=== PATIENT | male | born 1945 | race Caucasian/White ===

== ENCOUNTER 2016-09-15 15:39 | Inpatient (IN) | payer MEDICARE ==
[2016-09-15 16:13] LABS: Hematocrit 43 % (42-52); Hemoglobin 14.7 g/dl (14.0-18.0); Mean Corpuscular HGB Conc 34 g/dl (31-36); Mean Corpuscular Hemoglobin 31 pg (27-31); Mean Corpuscular Volume 89 fL (80-94); Mean Platelet Volume 9 um3 (7.4-10.4); Red Blood Count 4.82 10^6/ul (4.0-5.4); Red Cell Distribution Width 14 % (10.5-15); White Blood Count 8.9 10^3/ul (3.5-10.8)
--- NOTE | 2016-09-15 16:32 | RAD ---
INDICATION: Shortness of breath. COMPARISON: Comparison is made with prior chest x-ray study from [facility] 2014. TECHNIQUE: A portable view of the chest was obtained. FINDINGS: There is a transvenous cardiac pacemaker defibrillator present. The heart is within normal limits in size. The lungs are clear. No pleural effusion is seen. IMPRESSION: NO EVIDENCE FOR ACUTE DISEASE.
[2016-09-15 16:34] LABS: Albumin 4.4 g/dL (3.2-5.2); BUN/Creatinine Ratio 16.4 (8-20); Calcium 9.5 mg/dL (8.6-10.3); EGFR Non-African American 55.2 (>60); Globulin 3.1 g/dL (2-4); Magnesium 1.9 mg/dL (1.9-2.7); Potassium 3.5 mmol/L (3.5-5.0); Total Bilirubin 0.4 mg/dL (0.2-1.0); Total Protein 7.5 g/dL (6.4-8.9); Troponin I 0.04 ng/mL (<0.04)
--- NOTE | 2016-09-15 17:30 | ED ---
I, DoctorRoya, scribed for Eda Grimm MD on 09/15/16 at 1625 . Shortness of Breath - HPI Summary HPI Summary: 71 year old male arrived to [facility] c/o SOB and cough for the past two weeks. Pt indicates that his symptoms were exacerbated today around 14:30, when he experienced an episode of syncope and firing of his defibrillator. Pt denies that he hit his head, and reports that he was sitting on a soft chair. Pt reports that he has been gaining weight recently; he denies any edema or calf pain. He has PMHx of DE/CAD, blood clots, and a defibrillator. Dr. 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 - History of Current Complaint Chief Complaint: EDSyncope Time Seen by Provider: 09/15/16 16:01 Hx Obtained From: Patient Onset/Duration: Gradual Onset Current Severity: Moderate Aggrevating Factors: Deep Breaths Associated Signs & Symptoms: Cough (Nonproductive) - Allergy/Home Medications Allergies/Adverse Reactions: Allergies Allergy/AdvReac Type Severity Reaction Status Date / Time Lisinopril Allergy Rash Verified 09/15/16 15:46 Losartan Allergy Rash Verified 09/15/16 15:46 Niacin [From Niaspan] Allergy Flushing Verified 09/15/16 15:46 Home Medications: Home Medications Aspirin EC Low Dose* [Ecotrin EC Low Dose 81 MG*] 81 mg PO DAILY 09/15/16 [ History Confirmed 09/15/16] Clotrimazole/Betamethasone* [Lotrisone Cream*] 1 applic TOPICAL BID 09/15/16 [ History Confirmed 09/15/16] Fenofibrate(NF) [Tricor(NF)] 145 mg PO DAILY 09/15/16 [History Confirmed ] Furosemide TAB* [Lasix TAB*] 20 mg PO DAILY 09/15/16 [History Confirmed 09/15/16 ] Potassium Chloride Microencaps [Klor-Con M20] 20 meq PO DAILY 09/15/16 [History Confirmed 09/15/16] Simvastatin (NF) [Zocor (NF)] 60 mg PO DAILY 09/15/16 [History Confirmed ] Sotalol TAB* [Betapace 80 MG TAB*] 40 mg PO BID 09/15/16 [History Confirmed 03/24] Warfarin TAB(*) [Coumadin TAB(*)] 2.5 mg PO DAILY 09/15/16 [History Confirmed ] PMH/Surg Hx/FS Hx/Imm Hx Endocrine/Hematology History: Denies: Hx Diabetes Cardiovascular History: Reports: Hx Auto Implanted Cardiovert Defib, Hx Cardiac Arrest, Hx Congestive Heart Failure, Hx Coronary Artery Disease, Hx Deep Vein Thrombosis, Hx Hypercholesterolemia, Hx Hypertension Respiratory History: Reports: Hx Pneumonia History: Reports: Other Problems/Disorders - bilateral renal emboli Musculoskeletal History: Reports: Hx Arthritis, Hx Back Problems Sensory History: Reports: Hx Contacts or Glasses Opthamlomology History: Reports: Hx Contacts or Glasses - Surgical History Surgery Procedure, Year, and Place: Stents X4; rhinoplasty defibulator-2013 Hx Anesthesia Reactions: No Infectious Disease History: No Infectious Disease History: Denies: Hx of Known/Suspected MRSA, Traveled Outside the [place] in Last 30 Days - Family History Known Family History: Positive: Cardiac Disease, Diabetes - Social History Lives: Alone Alcohol Use: None Substance Use Type: Reports: None Smoking Status (MU): Former Smoker Review of Systems Negative: Fever Positive: Shortness Of Breath, Cough Positive: Other - no leg pain/edema. Negative: Edema Positive: Syncope All Other Systems Reviewed And Are Negative: Yes Physical Exam Triage Information Reviewed: Yes Vital Signs On Initial Exam: Initial Vitals Temp Pulse Resp BP Pulse Ox 98.5 F 86 16 137/86 98 09/15/16 15:44 09/15/16 15:44 09/15/16 15:44 09/15/16 15:44 09/15/16 15:44 Vital Signs Reviewed: Yes Appearance: Positive: Well-Appearing, No Pain Distress Skin: Positive: Warm, Skin Color Reflects Adequate Perfusion, Dry Eyes: Positive: EOMI, SHEFALI ENT: Positive: Pharynx normal, TMs normal Neck: Positive: Supple, Nontender Respiratory/Lung Sounds: Positive: Breath Sounds Present, Other - slight crackling. Negative: Rales, Rhonchi, Wheezes Cardiovascular: Positive: RRR. Negative: Murmur, Rub Abdomen Description: Positive: Nontender, Soft Bowel Sounds: Positive: Present Musculoskeletal: Positive: Strength/ROM Intact, Edema Right - 1+ edema in the right calf. Negative: Edema Left Neurological: Positive: Sensory/Motor Intact, Alert, Oriented to Person Place, Time, CN Intact II-III Psychiatric: Positive: Affect/Mood Appropriate - Hilaria Coma Scale Coma Scale Total: 15 Diagnostics - Vital Signs Vital Signs Temp Pulse Resp BP Pulse Ox 09/15/16 16:00 86 17 134/74 96 09/15/16 15:55 87 10 96 09/15/16 15:53 140/84 09/15/16 15:46 98.5 F 86 18 137/86 98 09/15/16 15:44 98.5 F 86 16 137/86 98 - Laboratory Lab Results: Lab Results 09/15/16 09/15/16 09/15/16 Range/Units 16:05 16:05 16:05 WBC 8.9 (3.5-10.8) 10^3/ul RBC 4.82 (4.0-5.4) 10^6/ul Hgb 14.7 (14.0-18.0) g/dl Hct 43 (42-52) % MCV 89 (80-94) fL MCH 31 (27-31) pg MCHC 34 (31-36) g/dl RDW 14 (10.5-15) % Plt Count 220 (150-450) 10^3/ul MPV 9 (7.4-10.4) um3 Neut % (Auto) 43.1 (38-83) % Lymph % (Auto) 32.9 (25-47) % [place] % (Auto) 10.1 H (1-9) % Eos % (Auto) 9.9 H (0-6) % Baso % (Auto) 4.0 H (0-2) % Absolute Neuts (auto) 3.8 (1.5-7.7) 10^3/ul Absolute Lymphs (auto) 2.9 (1.0-4.8) 10^3/ul Absolute Monos (auto) 0.9 H (0-0.8) 10^3/ul Absolute Eos (auto) 0.9 H (0-0.6) 10^3/ul Absolute Basos (auto) 0.4 H (0-0.2) 10^3/ul Absolute Nucleated RBC 0.02 10^3/ul Nucleated RBC % 0.2 Sodium 136 (133-145) mmol/L Potassium 3.5 (3.5-5.0) mmol/L Chloride 103 (101-111) mmol/L Carbon Dioxide 23 (22-32) mmol/L Anion Gap 10 (2-11) mmol/L BUN 21 (6-24) mg/dL Creatinine 1.28 H (0.67-1.17) mg/dL Est GFR ( Amer) 71.0 (>60) Est GFR (Non-Af Amer) 55.2 (>60) BUN/Creatinine Ratio 16.4 (8-20) Glucose 125 H (70-100) mg/dL Lactic Acid 1.5 (0.5-2.0) mmol/L Calcium 9.5 (8.6-10.3) mg/dL Magnesium 1.9 (1.9-2.7) mg/dL Total Bilirubin 0.40 (0.2-1.0) mg/dL AST 51 H (13-39) U/L ALT 60 H (7-52) U/L Alkaline Phosphatase 23 L (34-104) U/L Troponin I 0.04 H* (<0.04) ng/mL B-Natriuretic Peptide ( - 100) pg/mL Total Protein 7.5 (6.4-8.9) g/dL Albumin 4.4 (3.2-5.2) g/dL Globulin 3.1 (2-4) g/dL Albumin/Globulin Ratio 1.4 (1-3) 04//17 Range/Units 16:05 WBC (3.5-10.8) 10^3/ul RBC (4.0-5.4) 10^6/ul Hgb (14.0-18.0) g/dl Hct (42-52) % MCV (80-94) fL MCH (27-31) pg MCHC (31-36) g/dl RDW (10.5-15) % Plt Count (150-450) 10^3/ul MPV (7.4-10.4) um3 Neut % (Auto) (38-83) % Lymph % (Auto) (25-47) % [place] % (Auto) (1-9) % Eos % (Auto) (0-6) % Baso % (Auto) (0-2) % Absolute Neuts (auto) (1.5-7.7) 10^3/ul Absolute Lymphs (auto) (1.0-4.8) 10^3/ul Absolute Monos (auto) (0-0.8) 10^3/ul Absolute Eos (auto) (0-0.6) 10^3/ul Absolute Basos (auto) (0-0.2) 10^3/ul Absolute Nucleated RBC 10^3/ul Nucleated RBC % Sodium (133-145) mmol/L Potassium (3.5-5.0) mmol/L Chloride (101-111) mmol/L Carbon Dioxide (22-32) mmol/L Anion Gap (2-11) mmol/L BUN (6-24) mg/dL Creatinine (0.67-1.17) mg/dL Est GFR ( Amer) (>60) Est GFR (Non-Af Amer) (>60) BUN/Creatinine Ratio (8-20) Glucose (70-100) mg/dL Lactic Acid (0.5-2.0) mmol/L Calcium (8.6-10.3) mg/dL Magnesium (1.9-2.7) mg/dL Total Bilirubin (0.2-1.0) mg/dL AST (13-39) U/L ALT (7-52) U/L Alkaline Phosphatase (34-104) U/L Troponin I (<0.04) ng/mL B-Natriuretic Peptide 174 H ( - 100) pg/mL Total Protein (6.4-8.9) g/dL Albumin (3.2-5.2) g/dL Globulin (2-4) g/dL Albumin/Globulin Ratio (1-3) Result Diagrams: 09/15/16 16:05 09/15/16 16:05 Lab Statement: Any lab studies that have been ordered have been reviewed, and results considered in the medical decision making process. - Radiology CXR Radiology Interpretation Completed By: Radiologist - IMPRESSION: NO EVIDENCE FOR ACUTE DISEASE. - EKG 16:21 Cardiac Rate: NL - 83 bpm Ectopy: None EKG Interpretation: LBBB EKG Comparison: No Significant Change - from EKG taken on 06/10/2014 Course/Dx - Course Assessment/Plan: 71 yo male who lifted a 70 lb grill and became syncopal and then felt defibrillator go off. Pt remains slightly sob which he has been experiencing for the last few weeks. Defibrillator was interrogated and it does show that pt was in vtach. Pt accepted for admission by [facility] - Diagnoses Provider Diagnoses: Syncope, Ventricular tachycardia - Physician Notifications Discussed Care of Patient With: 16:43 - Discussed care of pt with [employer] Discharge - Discharge Plan Condition: Stable Disposition: ADMITTED TO [facility] The documentation as recorded by the Doctor smith Tahera accurately reflects the service I personally performed and the decisions made by me, Eda Grimm MD.
[2016-09-15] MEDS ORDERED: NS 0.9% 1000 ML* 1,000 ML IV SCH (18:30)
[2016-09-15] MEDS: Warfarin TAB(*) 2.5 MG PO SCH (19:49)
--- NOTE | 2016-09-15 20:01 | RAD ---
INDICATION: Right flank abdominal pain. COMPARISON: Comparison is made with a prior CT of the abdomen and pelvis from February 27, 2014. TECHNIQUE: Multiple real-time images of the right kidney were obtained. FINDINGS: The right kidney is normal in size shape and echogenicity. The kidney measured 11.9 x 5.0 x 5.2 cm. There appears to be a prominent column of Jose Francisco present. No significant focal abnormality or hydronephrosis is seen. IMPRESSION: NO EVIDENCE FOR HYDRONEPHROSIS.
[2016-09-15] MEDS ORDERED: Heparin VIAL(*) 5000 UNITS/ML VIAL (FIVE THOUSAND) SUBCUT SCH (22:00)
[2016-09-15] MEDS: Sotalol TAB* 80 MG PO SCH (22:05)
[2016-09-15 22:30] LABS: Urine Bilirubin Negative (Negative); Urine Glucose Negative (Negative); Urine Nitrite Negative (Negative)
[2016-09-16 04:47] LABS: Hematocrit 41 % (42-52); Hemoglobin 13.9 g/dl (14.0-18.0); Mean Corpuscular HGB Conc 34 g/dl (31-36); Mean Corpuscular Hemoglobin 30 pg (27-31); Mean Corpuscular Volume 90 fL (80-94); Mean Platelet Volume 9 um3 (7.4-10.4); Red Blood Count 4.62 10^6/ul (4.0-5.4); Red Cell Distribution Width 14 % (10.5-15); White Blood Count 7.3 10^3/ul (3.5-10.8)
[2016-09-16 04:48] LABS: Add Diff/Slide Review? Slide Review Added
[2016-09-16 05:03] LABS: Albumin 3.9 g/dL (3.2-5.2); BUN/Creatinine Ratio 19.4 (8-20); Calcium 9.1 mg/dL (8.6-10.3); EGFR African American 102.7 (>60); EGFR Non-African American 79.9 (>60); Globulin 2.9 g/dL (2-4); Potassium 3.8 mmol/L (3.5-5.0); Total Bilirubin 0.5 mg/dL (0.2-1.0); Total Protein 6.8 g/dL (6.4-8.9)
--- NOTE | 2016-09-16 05:48 | HP ---
HISTORY AND PHYSICAL: DATE OF ADMISSION: 09/15/16 PROVIDER: Michelle Cazares NP ATTENDING PHYSICIAN: Aidan De Jesus MD *(reported dictated by Michelle Cazares NP) PRIMARY CARE PROVIDER: Jesus Manuel Ga MD PHOTO STUDIO ASSISTANT: Curry Yun MD CHIEF COMPLAINT: Syncope and firing of defibrillator. HISTORY OF PRESENT ILLNESS: Mr. 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 Mr. Davis reports that over the past 2 to 3 weeks, he has had worsening shortness of breath and cough. The patient reports that he has had nasal congestion and rhinorrhea. He reports this morning he was at his sister's, where he felt quite short of breath; however, he was able to go about his day and he bought a barbecue grill, got at home, and lifted it off the back of his truck. He reports that the grill was approximately 70 pounds. He reports that he was able to carry this to his back deck, walked around the yard with his dog, and then when he came inside, he was standing up when all of a sudden he felt very short of breath and his AICD fired and at that time, he reports he lost his vision, lost his sight and hearing, and lost consciousness and fell backwards into the chair. He denies any injuries to himself or hitting his head as he reports he fell onto the chair. When he woke up, he was experiencing left upper chest wall pain and extreme shortness of breath and felt very panicked. He was eventually able to call 911 within a minute or two. When he arrived to the emergency department, he reports that he continued to have mild shortness of breath, but otherwise fell back to his baseline. The patient denies any recent fevers or chills. Reports nonproductive cough. Reports good appetite. Possible weight gain, but denies any lower extremity edema or orthopnea. Denies nausea, vomiting, diarrhea, or constipation. The patient reports that he gets his AICD interrogated every 3 months. He believes he saw Dr. Yun last year and believes his last echo was 3 to 6 months ago. The patient also reports right back flank pain for the past 3 or 4 weeks. He believes this to be musculoskeletal, but he is concerned due to his history of right renal emboli and renal infarction. He denies any urinary symptoms such as dysuria, increased frequency, increased urgency, or retention. PAST MEDICAL HISTORY: 1. History of left atrial thrombus with resultant right renal emboli and renal infarction. 2. Coronary artery disease, status post stent to the LAD in 2000. 3. History of ventricular tachycardia arrest, status post AICD placement and initially placed in 2001 with replacement in 2013. 4. Severe ischemic cardiomyopathy with the last EF that we have documented is 20% to 25%, 03/17/13. 5. Hypertension. 6. Hyperlipidemia. 7. Atrial fibrillation, on Coumadin. PAST SURGICAL HISTORY: 1. ICD placement. 2. Back surgery. HOME MEDICATIONS: 1. Coumadin 2.5 mg p.o. daily. 2. Sotalol 40 mg p.o. b.i.d. 3. Simvastatin 60 mg p.o. daily. 4. Potassium chloride 20 mEq p.o. daily. 5. Lasix 20 mg p.o. daily. 6. Fenofibrate 145 mg p.o. daily. 7. Lotrisone cream 1 application topical b.i.d. 8. Aspirin EC low dose 81 mg p.o. daily. ALLERGIES: LISINOPRIL, LOSARTAN, and NIACIN. FAMILY HISTORY: The patient's father at age 72 of coronary artery disease. His mother at age 72 of lung cancer. The patient's sister has a history of hypertension and stroke. The patient's brother from stomach cancer. SOCIAL HISTORY: The patient is a former smoker, quitting greater than 20 years ago. Denies alcohol use. He worked at [employer] and is retired. He is . He has 2 daughters who are both healthy. Surrogate decision maker is his sister, Lulu Reza. REVIEW OF SYSTEMS: A 14-point review of systems was performed. All the pertinent positives and negatives are mentioned in the history of present illness. All the remaining systems are negative. PHYSICAL EXAMINATION GENERAL APPEARANCE: A 71-year-old male sitting in bed, alert and oriented x3, in no acute distress. VITAL SIGNS: Temperature 98.3, heart rate 79, respirations 18, O2 sat 99% on 2 L nasal cannula, and blood pressure 121/85. HEENT: Head is normocephalic, atraumatic. Pupils are equal and reactive to light. Oropharynx is clear. Good dentition. Moist mucous membranes. NECK: Supple. No cervical or supraclavicular lymphadenopathy. RESPIRATORY: Lungs are clear to auscultation bilaterally. Good aeration throughout. CARDIAC: S1, S2. Regular rate and rhythm. No murmurs, rubs, or gallops appreciated. No lower extremity edema noted. ABDOMEN: Obese, soft, nondistended, and nontender. Normal bowel sounds. MUSCULOSKELETAL: No clubbing or cyanosis is noted. Full range of motion in all extremities. Strength is 5/5 throughout. NEUROLOGIC: Cranial nerves II through XII are intact. Sensation to lower extremities is intact to light touch. PSYCH: The patient is alert and oriented x3. Appropriate to situation. SKIN: Warm, pink, and dry. No rashes or lesions were noted. DIAGNOSTIC STUDIES/LAB DATA: WBC is 8.9, RBC 4.82, HGB 14.7, HCT 43, MCV 89, MCH 31, MCHC 34, RDW 14, and platelet count 220. INR 2.82. Sodium 136, potassium 3.5, chloride 103, carbon dioxide 23, anion gap 10, BUN 21 , creatinine 1.28, glucose 125, lactic acid 1.5, calcium 9.5, and magnesium 1.9. Total bilirubin 0.40, AST 51, ALT 60, and alkaline phosphatase 23. Troponin 0.04. BNP 174. Total protein 7.5. Albumin 4.4. Chest x-ray, impression: No evidence for acute disease. EKG: Sinus rhythm with a rate of 83 with a right bundle-branch block. In comparison to prior EKG, no acute ischemic changes noted. ASSESSMENT AND PLAN: Mr. Davis is a 71-year-old male with a past medical history of coronary artery disease, status post stent placement; history of ventricular tachycardia arrest, status post AICD placement; severe ischemic cardiomyopathy with an EF of 20%; atrial fibrillation, on Coumadin; and history of left atrial thrombus resulting in right renal emboli and renal infarction who presents to the hospital on 09/15/16 with complaint of syncope and AICD firing. 1. Syncope secondary to ventricular tachycardia with AICD firing: The patient' s defibrillator was interrogated and does show the patient was in ventricular tachycardia. However, the patient will be admitted to telemetry with trending of troponins. His first initial troponin was 0.04. The patient denies any further chest pain, but does report some mild shortness of breath, which has been his baseline the last 2 to 3 weeks. Continue daily aspirin. We will discuss with Dr. Yun tomorrow. Obtain transthoracic echocardiogram. 2. Shortness of breath: Unclear etiology behind the patient's shortness of breath for the last 2 to 3 weeks. It is possible that the patient has had a worsening of his cardiomyopathy. As stated above, we will obtain echo. It is possible he has a little reactive airway disease or mild congestive heart failure. He is stable on 2 L at this time. We will continue to monitor. 3. Acute kidney injury: Gentle IV fluids overnight. I suspect this is secondary to poor perfusion. Check renal function in the morning. 4. Transaminitis: Mild, suspect hypoperfusion. Recheck in a.m. 5. Atrial fibrillation: The patient is currently in sinus rhythm. Continue sotalol and Coumadin. The patient's INR is therapeutic. 6. Coronary artery disease: Continue aspirin and beta william. 7. Hyperlipidemia: Continue statin. 8. DVT prophylaxis: INR is therapeutic, on Coumadin. 9. Code status: The patient reports that he is a do not resuscitate. His MOLST has been updated. TIME SPENT: Approximately 60 minutes was spent on this admission with greater than 30 minutes at the bedside. This case was discussed with attending physician, Dr. De Jesus, who agrees with the plan of care. MICHELLE CAZARES NP CC: Dr. Ga; Dr. Yun* [id number]/[facility] #: [id number] [facility]ITAL[facility]
[2016-09-16] MEDS: Aspirin EC Low Dose* 81 MG TAB.EC PO SCH (08:35)
[2016-09-16] MEDS: Atorvastatin* 10 MG TAB PO SCH (08:35)
[2016-09-16] MEDS: Sotalol TAB* 80 MG PO SCH ×2 (08:35→20:31)
[2016-09-16] MEDS ORDERED: Perflutren Lipid Microsphere* 1.1 MG/1.5 ML VIAL IV ONE (10:00)
--- NOTE | 2016-09-16 15:09 | PN ---
Subjective Date of Service: 09/16/16 Interval History: pt reports he feels "fine", no further syncopal episodes or CP. Denies SOB. Objective Active Medications: Aspirin (Aspirin Ec Low Dose*) 81 mg PO DAILY [facility] Last Admin: 09/16/16 08:35 Dose: 81 mg Atorvastatin Calcium (Lipitor*) 30 mg PO DAILY [facility] Last Admin: 09/16/16 08:35 Dose: 30 mg Pharmacy Profile Note (Coumadin Daily Reminder*) 1 note FOLLOW UP 1700 [facility] Sotalol HCl (Betapace Tab*) 40 mg PO BID [facility] Last Admin: 09/16/16 08:35 Dose: 40 mg Warfarin Sodium (Coumadin Tab(*)) 2.5 mg PO 1700 [facility] PRN Reason: Protocol Last Admin: 09/15/16 19:49 Dose: 2.5 mg Vital Signs 09/16/16 11:19 Temperature 97.4 F Pulse Rate 56 Respiratory 16 Rate Blood Pressure 104/66 (mmHg) O2 Sat by Pulse 95 Oximetry Oxygen Devices in Use Now: None Appearance: obese 71 yo male sitting up in bed in NAD. A+O x3 Eyes: No Scleral Icterus, PERRLA Ears/Nose/Mouth/Throat: NL Teeth, Lips, Gums, Mucous Membranes Moist Neck: NL Appearance and Movements; NL JVP Respiratory: Symmetrical Chest Expansion and Respiratory Effort, Clear to Auscultation Cardiovascular: NL Sounds; No Murmurs; No JVD, RRR, No Edema Abdominal: NL Sounds; No Tenderness; No Distention, - - obese Extremities: No Edema, No Clubbing, Cyanosis Skin: No Rash or Ulcers, No Nodules or Sclerosis Neurological: Alert and Oriented x 3, NL Sensation, NL Gait, NL Muscle Strength and Tone Lines/Tubes/Other Access: Clean, Dry and Intact Peripheral IV Nutrition: Taking PO's Result Diagrams: 09/16/16 04:28 09/16/16 04:28 Additional Lab and Data: Lab Results 09/15/16 09/15/16 09/15/16 Range/Units 16:05 16:05 16:05 WBC 8.9 (3.5-10.8) 10^3/ul RBC 4.82 (4.0-5.4) 10^6/ul Hgb 14.7 (14.0-18.0) g/dl Hct 43 (42-52) % MCV 89 (80-94) fL MCH 31 (27-31) pg MCHC 34 (31-36) g/dl RDW 14 (10.5-15) % Plt Count 220 (150-450) 10^3/ul MPV 9 (7.4-10.4) um3 Neut % (Auto) 43.1 (38-83) % Lymph % (Auto) 32.9 (25-47) % [place] % (Auto) 10.1 H (1-9) % Eos % (Auto) 9.9 H (0-6) % Baso % (Auto) 4.0 H (0-2) % Absolute Neuts (auto) 3.8 (1.5-7.7) 10^3/ul Absolute Lymphs (auto) 2.9 (1.0-4.8) 10^3/ul Absolute Monos (auto) 0.9 H (0-0.8) 10^3/ul Absolute Eos (auto) 0.9 H (0-0.6) 10^3/ul Absolute Basos (auto) 0.4 H (0-0.2) 10^3/ul Absolute Nucleated RBC 0.02 10^3/ul Nucleated RBC % 0.2 Sodium 136 (133-145) mmol/L Potassium 3.5 (3.5-5.0) mmol/L Chloride 103 (101-111) mmol/L Carbon Dioxide 23 (22-32) mmol/L Anion Gap 10 (2-11) mmol/L BUN 21 (6-24) mg/dL Creatinine 1.28 H (0.67-1.17) mg/dL Est GFR ( Amer) 71.0 (>60) Est GFR (Non-Af Amer) 55.2 (>60) BUN/Creatinine Ratio 16.4 (8-20) Glucose 125 H (70-100) mg/dL Lactic Acid 1.5 (0.5-2.0) mmol/L Calcium 9.5 (8.6-10.3) mg/dL Magnesium 1.9 (1.9-2.7) mg/dL Total Bilirubin 0.40 (0.2-1.0) mg/dL AST 51 H (13-39) U/L ALT 60 H (7-52) U/L Alkaline Phosphatase 23 L (34-104) U/L Troponin I 0.04 H* (<0.04) ng/mL B-Natriuretic Peptide ( - 100) pg/mL Total Protein 7.5 (6.4-8.9) g/dL Albumin 4.4 (3.2-5.2) g/dL Globulin 3.1 (2-4) g/dL Albumin/Globulin Ratio 1.4 (1-3) /03/24 Range/Units 16:05 WBC (3.5-10.8) 10^3/ul RBC (4.0-5.4) 10^6/ul Hgb (14.0-18.0) g/dl Hct (42-52) % MCV (80-94) fL MCH (27-31) pg MCHC (31-36) g/dl RDW (10.5-15) % Plt Count (150-450) 10^3/ul MPV (7.4-10.4) um3 Neut % (Auto) (38-83) % Lymph % (Auto) (25-47) % [place] % (Auto) (1-9) % Eos % (Auto) (0-6) % Baso % (Auto) (0-2) % Absolute Neuts (auto) (1.5-7.7) 10^3/ul Absolute Lymphs (auto) (1.0-4.8) 10^3/ul Absolute Monos (auto) (0-0.8) 10^3/ul Absolute Eos (auto) (0-0.6) 10^3/ul Absolute Basos (auto) (0-0.2) 10^3/ul Absolute Nucleated RBC 10^3/ul Nucleated RBC % Sodium (133-145) mmol/L Potassium (3.5-5.0) mmol/L Chloride (101-111) mmol/L Carbon Dioxide (22-32) mmol/L Anion Gap (2-11) mmol/L BUN (6-24) mg/dL Creatinine (0.67-1.17) mg/dL Est GFR ( Amer) (>60) Est GFR (Non-Af Amer) (>60) BUN/Creatinine Ratio (8-20) Glucose (70-100) mg/dL Lactic Acid (0.5-2.0) mmol/L Calcium (8.6-10.3) mg/dL Magnesium (1.9-2.7) mg/dL Total Bilirubin (0.2-1.0) mg/dL AST (13-39) U/L ALT (7-52) U/L Alkaline Phosphatase (34-104) U/L Troponin I (<0.04) ng/mL B-Natriuretic Peptide 174 H ( - 100) pg/mL Total Protein (6.4-8.9) g/dL Albumin (3.2-5.2) g/dL Globulin (2-4) g/dL Albumin/Globulin Ratio (1-3) Assess/Plan/Problems-Billing Assessment: 71 yo male with a PMH of severe cardiomyopathy with EF 20%, hx of VT arrest s/pp AICD placement, CAD s/p stent placement, afib on coumadin, hx of left atrial thrombus and renal infacrtion who presented to the ED 09/15 with c/o syncope and AICD firing - Patient Problems (1) Syncope Comment: - no further episodes. AICD interrogation showed VT. Troponins indeterminate, suspect demand ischemia. Primary [employer] Dr. Yun recommended nuclear stress text in am. (2) Cardiomyopathy, ischemic Comment: - TTE showing EF <20%, do not have most recent echo on file. Last know EF 20-25 % 2012. Will ask for cardiology records to compare. (3) Afib Comment: - In SR, continue sotalol, coumadin (4) HTN (hypertension) Comment: - controlled. Continue sotalol (5) DVT prophylaxis Comment: coumadin (6) DNR (do not resuscitate) Current Visit: Yes Status: Acute Status and Disposition: inpatient with syncope secondary to VT with AICD firing. Plan for Cardiac nuc stress test in am. Possible DC home tomorrow.
--- NOTE | 2016-09-16 15:12 | ECHO ---
Patient: SARMAD ARCE [facility] Rec#: [id number] : 1945 Date: 09/16/2016 Age: 71y Height: 167.6 cm / 66.0 in Weight: 86.2 kg / 190.0 lbs Sex: M BSA: 2 Room#: 432 Admit Date#: 09/15/2016 Type: Inpatient Referring: Michelle Penny Reading: Curry Yun MD Accredited Legal Secretary: Consuelo Prescott RN RDCS CC: Jesus Manuel Ga MD Transthoracic Echocardiogram Indication: Syncope BP: 112/74 HR: 59 Rhythm: Bradycardia Findings History: CAD, PCI, VT arrest, AICD, severe ischemic cardiomyopathy, A. fib, EZEKIEL thrombus, renal emboli with infarction, former smoker. Technical Comments: The study is technically limited due to patient body habitus. The study is technically limited due to the patient's smoking history. Left Ventricle: The left ventricular chamber size is severely dilated. There is global hypokinesis of the left ventricle with minor regional variation. There is severely decreased left ventricular systolic function. The estimated ejection fraction is less than 20%. There is a left ventricular septal wall motion abnormality observed, possibly due to the presence of a left bundle branch block. Abnormal left ventricular diastolic filling is observed, consistent with impaired relaxation. Left Atrium: The left atrium is slightly dilated. Right Ventricle: The right ventricular cavity size is normal. The right ventricular global systolic function is normal. A pacemaker wire is visualized in the right ventricle. Right Atrium: The right atrial cavity size is normal. Aortic Valve: The aortic valve is trileaflet. The aortic valve leaflets are mildly thickened. There is trace to mild aortic regurgitation. There is no evidence of aortic stenosis. Mitral Valve: The mitral valve leaflets are mildly thickened. There is trace to mild mitral regurgitation. There is no evidence of mitral stenosis. Tricuspid Valve: The tricuspid valve leaflets are normal. There is trace tricuspid regurgitation. Unable to estimate the right ventricular systolic pressure. Pulmonic Valve: The pulmonic valve appears normal. There is a trace pulmonic regurgitation. There is no pulmonic stenosis. Pericardium: The pericardium appears normal. There is no significant pericardial effusion. A pericardial fat pad is visualized. Aorta: There is mild dilatation of the ascending aorta. The aortic arch is not well visualized. There is no dilation of the aortic root. Pulmonary Artery: The main pulmonary artery is not well visualized. Venous: The venous system is not well visualized. The inferior vena cava is not visualized. Contrast: Intravenous contrast was used to enhance endocardial border definition. A total of 4 ml of diluted Definity was administered IV to enhance the imaging. Summary: There are no significant changes when compared to the previous study done on 03/15/13 Conclusions There is global hypokinesis of the left ventricle with minor regional variation. There is severely decreased left ventricular systolic function. The estimated ejection fraction is less than 20%. There is a left ventricular septal wall motion abnormality observed, possibly due to the presence of a left bundle branch block. The right ventricular global systolic function is normal. A pacemaker wire is visualized in the right ventricle. The aortic valve leaflets are mildly thickened. There is trace to mild aortic regurgitation. There is trace to mild mitral regurgitation. There is trace tricuspid regurgitation. Unable to estimate the right ventricular systolic pressure. There is mild dilatation of the ascending aorta. Measurements Name Value Normal Range RVDdMajor (2D) 3.4 cm (2.2 - 4.4) RAd ISD 4CH 4.8 cm (3.4 - 4.9) RA (A4C)W 4 cm (2.9 - 4.6) IVSd (2D) 1.1 cm (0.6 - 1) LVPWd (2D) 1.1 cm (0.6 - 1) LVIDd (2D) 6.8 cm (3.6 - 5.4) LVIDs (2D) 6.3 cm - LV FS (2D) 7 % (25 - 45) Aortic Annulus 2.4 cm (1.4 - 2.6) Ao root diameter (2D) 3.5 cm (2.1 - 3.5) Ascending Ao 3.5 cm (2.1 - 3.4) LA dimension (AP) 2D 3.4 cm (2.3 - 3.8) LAd ISD 4CH 5.4 cm (2.9 - 5.3) LA ISD 4CH W 4.3 cm (2.5 - 4.5) Name Value Normal Range LA ESV SP 4CH (A/L) 49 ml - LA ESV SP 2CH (A/L) 50 ml - LA ESV BP (A/L) 53 ml - LA ESV BP (A/L) index 27 ml/m2 - LA ESV SP 4CH (MOD) 48 ml - LA ESV SP 2CH (MOD) 48 ml - Name Value Normal Range MV E-wave Vmax 0.49 m/sec - MV deceleration time 329 msec - MV A-wave Vmax 0.83 m/sec - MV E:A ratio 0.6 ratio - LV septal e' Vmax 0.03 m/sec - LV lateral e' Vmax 0.03 m/sec - LV E:e' septal ratio 16.3 ratio - LV E:e' lateral ratio 16.3 ratio - Name Value Normal Range AV Vmax 1.1 m/sec - AV VTI 26 cm - AV peak gradient 3.8 mmHg - AV mean gradient 2.9 mmHg - LVOT Vmax 0.94 m/sec - LVOT VTI 20.7 cm - LVOT peak gradient 3.6 mmHg - LVOT mean gradient 2 mmHg - Name Value Normal Range PV Vmax 0.81 m/sec -
[2016-09-16] MEDS: Warfarin TAB(*) 2.5 MG PO SCH (16:26)
--- NOTE | 2016-09-16 21:40 | CONS ---
CARDIOLOGY CONSULTATION: DATE OF CONSULT: 09/16/16 INDICATION FOR CONSULTATION: Ventricular tachycardia and coronary artery disease. HISTORY OF PRESENT ILLNESS: The patient is a 71-year-old gentleman with a history of coronary artery disease who is admitted to the hospital because of defibrillation of his ICD. The patient states that he was doing activity around his house. He was lifting some heavy packages and suddenly felt lightheaded and then received a shock from his ICD. The patient states that he " " but did not have any true syncopal episodes. He denied any anginal type symptoms before his event. He denied any nausea or vomiting. He denied any diaphoresis. After his shock, he felt quite well. He did not have any shortness of breath. He did not have any angina. He was brought to the emergency room. On arrival to the emergency room, he was in his normal rhythm. His laboratory studies were all within normal limits. His EKG demonstrated normal sinus rhythm with intraventricular conduction delay. PAST MEDICAL HISTORY: Significant for coronary artery disease. He had an anterior wall myocardial infarction in 2000. At that time had stent placed to his LAD. The patient had a repeat cardiac catheterization in 2006 which demonstrated that the stent to his LAD was open and patent. His left circumflex artery had mild plaquing. His right coronary artery was open and patent. The patient had an ICD implanted in 2005 and a generator change in August 2013. 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 OUTPATIENT MEDICATIONS: 1. Potassium 20 mEq a day. 2. Sotalol 80 mg one half tab b.i.d. 3. Aspirin 81 mg a day. 4. Simvastatin 60 mg a day. 5. Lasix 20 mg a day. 6. Coumadin as directed. 7. Fenofibrate 145 mg a day. ALLERGIES: He is intolerant of LISINOPRIL, LOSARTAN, and NIASPAN. SOCIAL HISTORY: He is retired. He is . He denies tobacco or alcohol use. He does exercise regularly. PHYSICAL EXAMINATION: Height is 5 feet 6 inches, weight is 187 pounds. Temperature 97.4, heart rate is 60, blood pressure 104/66, respiratory rate is 16, oxygen saturation 95% on room air. Sclerae anicteric. Oropharynx is pink without erythema. Carotids are 2+ without bruits. JVD is normal. Thyroid is normal. Cardiac Exam: S1, S2 without any murmurs, rubs, or gallops. Lungs are clear to auscultation. Extremities show no edema. The patient has 2+ pulses throughout. The patient is awake, alert, and oriented. He moves all 4 extremities equally. LABORATORY STUDIES: Chemistries within normal limits. BUN 18, creatinine 0.93. AST and ALT are all within normal limits. Troponins are minimally elevated at 0.07. CBC within normal limits. IMAGING: An echocardiogram today demonstrates severely reduced LV systolic function, ejection fraction of 20% with anterior wall akinesis. No significant valvular disease. There is no significant change from his echocardiogram in 2012. Interrogation of his ICD today demonstrates a Medtronic ICD, it is a single chamber ICD. He is ventricularly paced less than 1% of the time. His device interrogation showed an onset of rapid tachycardia at 222 beats per minute. The patient did undergo 3 cycles of antitachycardic pacing without success. He was ultimately cardioverted with 35 joules of energy and converted to normal sinus rhythm. IMPRESSION: This is a 71-year-old gentleman with a history of ischemic cardiomyopathy who was admitted to the hospital because of an ICD discharge. His ICD demonstrated a significant tachycardia, which broke with a single cardioversion of 35 joules. His echocardiogram shows no significant change in his LV function. His laboratory studies are unremarkable. His QT interval is stable. PLAN: The patient will undergo a chemical nuclear stress test to evaluate cardiac perfusion assuming that his perfusion is the same as it was in 2010. I do not think any other workup is necessary and I do not think any changes in medications are necessary. I will see the patient in followup as an outpatient. CC: Dr. Ga* [id number]/[facility] #: [id number] MARTIN
[2016-09-17 10:43] VITALS: BP 117/66
[2016-09-17] MEDS: Sotalol TAB* 80 MG PO SCH (10:44)
[2016-09-17] MEDS: Aspirin EC Low Dose* 81 MG TAB.EC PO SCH (10:45)
[2016-09-17] MEDS: Atorvastatin* 10 MG TAB PO SCH (10:45)
[2016-09-17] MEDS ORDERED: Regadenoson* 0.4 MG/5 ML SYRINGE ONE (11:23)
--- NOTE | 2016-09-17 13:27 | RAD ---
Edited for charges. INDICATION: AICD firing. Syncope. COMPARISON: February 19, 2015 TECHNIQUE: A single day SPECT protocol was utilized. Rest images were acquired following the intravenous injection of 10.1 millicuries of technetium 99m tetrofosmin. Pharmacologic stress images were acquired following the intravenous administration of 25.0 millicuries of technetium 99m tetrofosmin. FINDINGS: There is a large fixed defect involving all but the anterior posterior rocha at the base of the heart. The appearance is unchanged.. The cardiac chamber size is markedly enlarged and there is marked hypokinesis. Ejection fraction is markedly depressed measuring 13%. IMPRESSION: NO STRESS-INDUCED ISCHEMIA. LARGE INFARCTION DESCRIBED WITH MARKED HYPOKINESIS AND CHAMBER SIZE ENLARGEMENT, UNCHANGED ASSESSMENT: HIGH-RISK Based on imaging criteria from ACC/AHA 2002 Guideline Update for the Management of Patients With Chronic Stable Angina Table 23. Noninvasive Risk Stratification. MTDD
--- NOTE | 2016-09-17 14:39 | DCNOTE ---
Subjective Date of Service: 09/17/16 Interval History: Patient states he feels "really good" offering no complaints. No further CP or syncope. Denies SOB, LE edema, no orthopnea. Objective Active Medications: Aspirin (Aspirin Ec Low Dose*) 81 mg PO DAILY [facility] Last Admin: 09/17/16 10:45 Dose: 81 mg Atorvastatin Calcium (Lipitor*) 30 mg PO DAILY [facility] Last Admin: 09/17/16 10:45 Dose: 30 mg Pharmacy Profile Note (Coumadin Daily Reminder*) 1 note FOLLOW UP 1700 [facility] Last Admin: 09/16/16 16:38 Dose: 1 note Sotalol HCl (Betapace Tab*) 40 mg PO BID [facility] Last Admin: 09/17/16 10:44 Dose: 40 mg Warfarin Sodium (Coumadin Tab(*)) 2.5 mg PO 1700 [facility] PRN Reason: Protocol Last Admin: 09/16/16 16:26 Dose: 2.5 mg Vital Signs 09/16/16 09/16/16 09/16/16 15:57 20:00 20:21 Temperature 97.3 F 97.4 F Pulse Rate 58 63 Respiratory 22 16 16 Rate Blood Pressure 111/67 110/62 (mmHg) O2 Sat by Pulse 96 94 Oximetry 09/17/16 09/17/16 09/17/16 00:25 04:04 07:53 Temperature 97.6 F 98.2 F 97.7 F Pulse Rate 58 63 57 Respiratory 16 16 18 Rate Blood Pressure 104/59 108/68 117/66 (mmHg) O2 Sat by Pulse 94 94 95 Oximetry Oxygen Devices in Use Now: None Appearance: 71 yo male sitting up in bed in NAD. A+O x3 in NAD Eyes: No Scleral Icterus, PERRLA Ears/Nose/Mouth/Throat: NL Teeth, Lips, Gums Neck: NL Appearance and Movements; NL JVP Respiratory: Symmetrical Chest Expansion and Respiratory Effort, Clear to Auscultation Cardiovascular: NL Sounds; No Murmurs; No JVD, RRR, No Edema Abdominal: NL Sounds; No Tenderness; No Distention Extremities: No Edema, No Clubbing, Cyanosis Skin: No Rash or Ulcers, No Nodules or Sclerosis Neurological: Alert and Oriented x 3, NL Sensation, NL Gait, NL Muscle Strength and Tone Lines/Tubes/Other Access: Clean, Dry and Intact Peripheral IV Nutrition: Taking PO's Result Diagrams: 09/16/16 04:28 09/16/16 04:28 Additional Lab and Data: Lab Results 09/15/16 09/15/16 09/15/16 Range/Units 16:05 16:05 16:05 WBC 8.9 (3.5-10.8) 10^3/ul RBC 4.82 (4.0-5.4) 10^6/ul Hgb 14.7 (14.0-18.0) g/dl Hct 43 (42-52) % MCV 89 (80-94) fL MCH 31 (27-31) pg MCHC 34 (31-36) g/dl RDW 14 (10.5-15) % Plt Count 220 (150-450) 10^3/ul MPV 9 (7.4-10.4) um3 Neut % (Auto) 43.1 (38-83) % Lymph % (Auto) 32.9 (25-47) % Letcher % (Auto) 10.1 H (1-9) % Eos % (Auto) 9.9 H (0-6) % Baso % (Auto) 4.0 H (0-2) % Absolute Neuts (auto) 3.8 (1.5-7.7) 10^3/ul Absolute Lymphs (auto) 2.9 (1.0-4.8) 10^3/ul Absolute Monos (auto) 0.9 H (0-0.8) 10^3/ul Absolute Eos (auto) 0.9 H (0-0.6) 10^3/ul Absolute Basos (auto) 0.4 H (0-0.2) 10^3/ul Absolute Nucleated RBC 0.02 10^3/ul Nucleated RBC % 0.2 Sodium 136 (133-145) mmol/L Potassium 3.5 (3.5-5.0) mmol/L Chloride 103 (101-111) mmol/L Carbon Dioxide 23 (22-32) mmol/L Anion Gap 10 (2-11) mmol/L BUN 21 (6-24) mg/dL Creatinine 1.28 H (0.67-1.17) mg/dL Est GFR ( Amer) 71.0 (>60) Est GFR (Non-Af Amer) 55.2 (>60) BUN/Creatinine Ratio 16.4 (8-20) Glucose 125 H (70-100) mg/dL Lactic Acid 1.5 (0.5-2.0) mmol/L Calcium 9.5 (8.6-10.3) mg/dL Magnesium 1.9 (1.9-2.7) mg/dL Total Bilirubin 0.40 (0.2-1.0) mg/dL AST 51 H (13-39) U/L ALT 60 H (7-52) U/L Alkaline Phosphatase 23 L (34-104) U/L Troponin I 0.04 H* (<0.04) ng/mL B-Natriuretic Peptide ( - 100) pg/mL Total Protein 7.5 (6.4-8.9) g/dL Albumin 4.4 (3.2-5.2) g/dL Globulin 3.1 (2-4) g/dL Albumin/Globulin Ratio 1.4 (1-3) /03/24 Range/Units 16:05 WBC (3.5-10.8) 10^3/ul RBC (4.0-5.4) 10^6/ul Hgb (14.0-18.0) g/dl Hct (42-52) % MCV (80-94) fL MCH (27-31) pg MCHC (31-36) g/dl RDW (10.5-15) % Plt Count (150-450) 10^3/ul MPV (7.4-10.4) um3 Neut % (Auto) (38-83) % Lymph % (Auto) (25-47) % Letcher % (Auto) (1-9) % Eos % (Auto) (0-6) % Baso % (Auto) (0-2) % Absolute Neuts (auto) (1.5-7.7) 10^3/ul Absolute Lymphs (auto) (1.0-4.8) 10^3/ul Absolute Monos (auto) (0-0.8) 10^3/ul Absolute Eos (auto) (0-0.6) 10^3/ul Absolute Basos (auto) (0-0.2) 10^3/ul Absolute Nucleated RBC 10^3/ul Nucleated RBC % Sodium (133-145) mmol/L Potassium (3.5-5.0) mmol/L Chloride (101-111) mmol/L Carbon Dioxide (22-32) mmol/L Anion Gap (2-11) mmol/L BUN (6-24) mg/dL Creatinine (0.67-1.17) mg/dL Est GFR ( Amer) (>60) Est GFR (Non-Af Amer) (>60) BUN/Creatinine Ratio (8-20) Glucose (70-100) mg/dL Lactic Acid (0.5-2.0) mmol/L Calcium (8.6-10.3) mg/dL Magnesium (1.9-2.7) mg/dL Total Bilirubin (0.2-1.0) mg/dL AST (13-39) U/L ALT (7-52) U/L Alkaline Phosphatase (34-104) U/L Troponin I (<0.04) ng/mL B-Natriuretic Peptide 174 H ( - 100) pg/mL Total Protein (6.4-8.9) g/dL Albumin (3.2-5.2) g/dL Globulin (2-4) g/dL Albumin/Globulin Ratio (1-3) Microbiology and Other Data: Microbiology 09/17/16 10:45 Nasal Screen MRSA (PCR)(RICARDO) - Final Nasal Mrsa Positive Assess/Plan/Problems-Billing Assessment: 71 yo male with a PMH of severe cardiomyopathy with EF 20%, hx of VT arrest s/pp AICD placement, CAD s/p stent placement, afib on coumadin, hx of left atrial thrombus and renal infacrtion who presented to the ED 09/15 with c/o syncope and AICD firing - Patient Problems (1) Syncope Comment: - no further episodes. AICD interrogation showed VT. Troponins indeterminate, suspect demand ischemia. Cardiac nuclear stress showing unchanged from prior. - Dr. Yun consult, no further reocmmendations atthis time. follow up with Dr. Yun as outpt (2) Cardiomyopathy, ischemic Comment: - TTE showing EF 20%, do not have most recent echo on file. Last know EF 20-25% 2012. (3) Afib Comment: - In SR, continue sotalol, coumadin (4) HTN (hypertension) Comment: - controlled. Continue sotalol (5) DVT prophylaxis Comment: coumadin (6) DNR (do not resuscitate) Current Visit: Yes Status: Acute Status and Disposition: inpatient with syncope secondary to VT with AICD firing. DC home today
--- NOTE | 2016-09-18 04:56 | DS ---
DISCHARGE SUMMARY: DATE OF ADMISSION: 09/15/16 DATE OF DISCHARGE: 09/17/16 PROVIDER: Maureen Cazares NP ATTENDING PHYSICIAN: Mary Soliz DO *(report dictated by Maureen Cazares NP) PRIMARY CARE PROVIDER: Jesus Manuel Ga MD GRAVITY FLOW IRRIGATOR: Curry Yun MD PRIMARY DIAGNOSES: 1. Syncope secondary to ventricular tachycardia and firing of defibrillator. 2. Coronary artery disease. 3. Severe ischemic cardiomyopathy with an EF of 20% with a history of V-tach arrest, status post AICD placement. 4. Viral illness. 5. Acute kidney injury thought to be secondary to poor perfusion, which resolved with IV fluids. 6. Transaminitis, resolved with IV fluids. Suspect secondary to hypoperfusion. SECONDARY DIAGNOSES: 1. Hypertension. 2. Hyperlipidemia. 3. Atrial fibrillation, on Coumadin. DISCHARGE MEDICATIONS: 1. Aspirin 81 mg p.o. daily. 2. Betamethasone 1 application topical p.r.n. 3. TriCor 145 mg p.o. daily. 4. Lasix 10 mg p.o. daily. 5. Potassium 20 mEq p.o. daily. 6. Zocor 60 mg p.o. daily. 7. Sotalol 40 mg p.o. b.i.d. 8. Coumadin 2.5 mg p.o. daily. No new medications or changes at discharge plan. HISTORY OF PRESENT ILLNESS AND HOSPITAL COURSE: Please see history and physical by this author for full admission details, but in summary, this is a 71 -year-old male who presented to the emergency department on 09/17/16 with report of syncopal episode and firing of his defibrillator. The patient reported over the past 2 to 3 weeks, he has had worsening shortness of breath and cough along with nasal congestion and rhinorrhea. The patient reported the day of admission he went and bought a grill and delivered to his house in which he unloaded the grill himself. He reports it was approximately 70 pounds. He was able to carry this to his deck. He then walked around the yard with his dog and came back inside. Then all of a sudden, he stated he became very short of breath and his AICD fired and at that time, he reported he lost his vision and hearing and lost consciousness falling backwards into a chair. He denies having any injuries to himself or hitting his head and he woke up in the chair. When he woke up, he was experiencing left upper chest wall pain and extreme shortness of breath and felt very panicked and called 911. He does not think he was unconscious for very long. When he arrived to the emergency department, he reports he continued to have mild shortness of breath, but otherwise felt back to his baseline and the chest pain had resolved. The patient was admitted to the hospitalist service and monitored on telemetry. He had his pacemaker interrogated, which did show he had ventricular tachycardia. His cardiac enzymes and troponins were trended, which were 0.04, 0.07, 0.08, and 0.06. He had no noted EKG changes. He was seen in consultation by mobile designer, Dr. Yun, who follows the patient as an outpatient. He recommended that the patient undergo a cardiac nuclear stress test, which the patient did this morning. The patient's stress test read "no stress-induced ischemia. Large infarction as described with marked hypokinesis and chamber size enlargement, unchanged." In the body of the report , "there is a large fixed defect involving all but the anterior posterior wall at the base of the heart. The appearance is unchanged." Per Dr. Yun, there was no other recommended workup as his perfusion was unchanged. I did not recommend any medication changes at this time. The patient should follow up with Dr. Yun as an outpatient. The patient has done well throughout hospitalization, not having any further syncopal episodes or chest pain. He has been ambulating around the unit independently with no complaints. He has remained hemodynamically stable. Other labs are fairly unremarkable. The patient did undergo a transthoracic echocardiogram, which showed "there is global hypokinesis of the left ventricle with minor regional variation. There is severely decreased left ventricular systolic function. The estimated ejection fraction is less than 20%. There is a left ventricular septal wall motion abnormality observed possibly due to the presence of the left bundle- branch block. The right ventricular global systolic function is normal. The pacemaker wire is visualized in the right ventricle. The aortic valve leaflets are mildly thickened. There is [id number] aortic regurgitation. There is [id number] mitral regurgitation. There is trace tricuspid regurgitation. Unable to estimate the right ventricular systolic pressure. There is mild dilatation of the descending aorta." DISCHARGE PLAN: The patient will be discharged to home. Follow up with Dr. Ga on 09/22/16 at 1:50 p.m. The patient was instructed to make a followup appointment with Dr. Yun to be seen within the next couple of weeks. The patient's INR on 09/16/16 was 2.64. Stable for discharge to home. TIME SPENT: Approximately 60 minutes was spent on this discharge. MAUREEN CAZARES NP CC: Dr. Ga; Dr. Yun* [id number]/[facility] #: [id number] [facility]ENTER[facility]
== END 2016-09-17 15:55 | disposition home or self-care (01) | DRG 309 ==
LOC: ED 15:39 → MEDTELE 16:51 → OBSVTOIN 09-16 10:44
PROVIDERS: ADMIT Internal Medicine; ATTEND Hospitalist
PROC: 4B02XTZ Measurement of Cardiac Defibrillator, External Approach (ICD-10-PCS; principal; 2016-09-16)
DX: I49.01 Ventricular fibrillation (principal); N17.9 Acute kidney failure, unspecified; I25.5 Ischemic cardiomyopathy; I08.3 Combined rheumatic disorders of mitral, aortic and tricuspid valves; I25.10 Atherosclerotic heart disease of native coronary artery without angina pectoris; B34.9 Viral infection, unspecified; R74.0 Nonspecific elevation of levels of transaminase and lactic acid dehydrogenase [LDH]; I10 Essential (primary) hypertension; E78.5 Hyperlipidemia, unspecified; I48.91 Unspecified atrial fibrillation; I77.819 Aortic ectasia, unspecified site; I25.2 Old myocardial infarction; Z88.8 Allergy status to other drugs, medicaments and biological substances; Z86.718 Personal history of other venous thrombosis and embolism; Z87.01 Personal history of pneumonia (recurrent); Z79.82 Long term (current) use of aspirin; Z79.01 Long term (current) use of anticoagulants; I44.7 Left bundle-branch block, unspecified; Z66 Do not resuscitate; M19.90 Unspecified osteoarthritis, unspecified site; Z95.5 Presence of coronary angioplasty implant and graft; Z83.3 Family history of diabetes mellitus; Z82.49 Family history of ischemic heart disease and other diseases of the circulatory system; Z87.891 Personal history of nicotine dependence; Z80.1 Family history of malignant neoplasm of trachea, bronchus and lung; Z80.0 Family history of malignant neoplasm of digestive organs
CPT/HCPCS: 36415; 71010; 76775; 78452; 80053; 81003; 83605; 83735; 83880; 84484; 85025; 85610; 87040; 87641; 93005; 93017; 93306; 94760; A9270-GY; A9502; C8929; G0378; J2785

== ENCOUNTER 2017-05-01 11:33 | Emergency (ER) | payer MEDICARE ==
--- NOTE | 2017-05-01 12:20 | RAD ---
INDICATION: Chest pain COMPARISON: Most recent comparison chest x-rays September 15, 2016 TECHNIQUE: PA and lateral views of the chest were obtained. FINDINGS: The heart and mediastinum are normal in size and contour. The lungs are grossly clear. There is no evidence of large pleural effusion. Visualized bones are normal for the patient's age. There is no radiographic evidence of free air beneath the diaphragm IMPRESSION: No radiographic evidence of acute cardiopulmonary disease.
[2017-05-01 14:26] LABS: Hematocrit 45 % (42-52); Hemoglobin 14.9 g/dl (14.0-18.0); Mean Corpuscular HGB Conc 33 g/dl (31-36); Mean Corpuscular Hemoglobin 30 pg (27-31); Mean Corpuscular Volume 91 fL (80-94); Mean Platelet Volume 10 um3 (7.4-10.4); Red Blood Count 4.92 10^6/ul (4.0-5.4); Red Cell Distribution Width 15 % (10.5-15); White Blood Count 10.4 10^3/ul (3.5-10.8)
[2017-05-01 14:30] LABS: Urine Bilirubin Negative (Negative); Urine Glucose Negative (Negative); Urine Nitrite Negative (Negative)
[2017-05-01 14:34] LABS: Albumin 4.3 g/dL (3.2-5.2); BUN/Creatinine Ratio 17.2 (8-20); Calcium 9.8 mg/dL (8.6-10.3); EGFR African American 58.7 (>60); EGFR Non-African American 45.7 (>60); Globulin 3.2 g/dL (2-4); Total Bilirubin 0.4 mg/dL (0.2-1.0); Total Protein 7.5 g/dL (6.4-8.9)
[2017-05-01 14:37] LABS: Troponin I 0.01 ng/mL (<0.04)
[2017-05-01 15:47] LABS: TSH (Thyroid Stimulating Horm) 2.16 mcIU/mL (0.34-5.60)
--- NOTE | 2017-05-01 16:37 | ED ---
Sudarshan Benavides Gabriel, scribed for Tanner Martinez MD on 05/01/17 at 1152 . HPI Chest Pain - HPI Summary HPI Summary: This patient is a 71 year old M presenting to [facility] with a chief complaint of CP since a week ago. The patient rates the pain 5/10 in severity as described as pressure. Patient reports SOB, cough, and dry mouth. Patient denies nausea, vomiting, and fever. Pt states that the CP is intermittent and originally only unilateral but it is now bilateral. - History of Current Complaint Chief Complaint: EDChestPainROMI Time Seen by Provider: 05/01/17 11:44 Hx Obtained From: Patient Onset/Duration: Started Weeks Ago - 1, Still Present Timing: Intermittent Pain Intensity: 5 Pain Scale Used: 0-10 Numeric Chest Pain Location: Upper Sternal Character: Pressure/Squeezing Associated Signs and Symptoms: Positive: Cough, Other: - dry mouth. Negative: Fever, Nausea, Vomiting - Additional Pertinent History Primary Care Physician: [id number] - Allergy/Home Medications Allergies/Adverse Reactions: Allergies Allergy/AdvReac Type Severity Reaction Status Date / Time Lisinopril Allergy Rash Verified 09/15/16 15:46 Losartan Allergy Rash Verified 09/15/16 15:46 Niacin [From Niaspan] Allergy Flushing Verified 09/15/16 15:46 Home Medications: Home Medications Potassium Chlor TAB* [Klor Con ER TAB*] 20 meq PO DAILY 05/01/17 [History Confirmed 05/01/17] Warfarin TAB(*) [Coumadin TAB(*)] 1.5 mg PO .Thursday05/01/17 [History Confirmed 05/01/17] PMH/Surg Hx/FS Hx/Imm Hx Previously Healthy: No Endocrine/Hematology History: Denies: Hx Diabetes Cardiovascular History: Reports: Hx Auto Implanted Cardiovert Defib, Hx Cardiac Arrest, Hx Congestive Heart Failure, Hx Coronary Artery Disease, Hx Deep Vein Thrombosis, Hx Hypercholesterolemia, Hx Hypertension, Hx Myocardial Infarction Denies: Hx Angina Respiratory History: Reports: Hx Pneumonia Denies: Hx Asthma History: Reports: Other Problems/Disorders - bilateral renal emboli Musculoskeletal History: Reports: Hx Arthritis, Hx Back Problems Sensory History: Reports: Hx Contacts or Glasses Denies: Hx Hearing Aid Opthamlomology History: Reports: Hx Contacts or Glasses - Surgical History Surgery Procedure, Year, and Place: Stents X4; rhinoplasty defibulator-2014 Hx Anesthesia Reactions: No Infectious Disease History: No Infectious Disease History: Denies: Hx of Known/Suspected MRSA, Traveled Outside the [place] in Last 30 Days - Family History Known Family History: Positive: Cardiac Disease, Diabetes - Social History Alcohol Use: None Substance Use Type: Reports: None Smoking Status (MU): Former Smoker Review of Systems Negative: Fever Positive: Chest Pain Positive: Shortness Of Breath, Cough Negative: Vomiting, Nausea All Other Systems Reviewed And Are Negative: Yes Physical Exam - Summary Physical Exam Summary: VITAL SIGNS: Reviewed. GENERAL: ~Patient is a well-developed and nourished male who is lying comfortable in the stretcher. ~Patient is not in any acute respiratory distress. HEAD AND FACE: No signs of trauma. ~No ecchymosis, hematomas or skull depressions. No sinus tenderness. EYES: PERRLA, EOMI x 2, No injected conjunctiva, no nystagmus. EARS: Hearing grossly intact. Ear canals and tympanic membranes are within normal limits. MOUTH: Oropharynx within normal limits. NECK: Supple, trachea is midline, no adenopathy, no JVD, no carotid bruit, no c- spine tenderness, neck with full ROM. CHEST: Symmetric, no tenderness at palpation LUNGS: Clear to auscultation bilaterally. No wheezing or crackles. CVS: Regular rate and rhythm, S1 and S2 present, no murmurs or gallops appreciated. ABDOMEN: Soft, non-tender. No signs of distention. No rebound no guarding, and no masses palpated. Bowel sounds are normal. EXTREMITIES: FROM in all major joints, no edema, no cyanosis or clubbing. NEURO: Alert and oriented x 3. No acute neurological deficits. Speech is normal and follows commands. SKIN: Dry and warm Triage Information Reviewed: Yes Vital Signs On Initial Exam: Initial Vitals Temp Pulse Resp BP Pulse Ox 98.7 F 69 17 141/82 96 05/01/17 11:38 05/01/17 11:38 05/01/17 11:38 05/01/17 11:38 05/01/17 11:38 Vital Signs Reviewed: Yes Diagnostics - Vital Signs Vital Signs Temp Pulse Resp BP Pulse Ox 05/01/17 11:38 98.7 F 69 17 141/82 96 - Laboratory Lab Results: Lab Results 05/01/17 05/01/17 05/01/17 Range/Units 12:10 12:10 12:10 WBC (3.5-10.8) 10^3/ul RBC (4.0-5.4) 10^6/ul Hgb (14.0-18.0) g/dl Hct (42-52) % MCV (80-94) fL MCH (27-31) pg MCHC (31-36) g/dl RDW (10.5-15) % Plt Count (150-450) 10^3/ul MPV (7.4-10.4) um3 Neut % (Auto) (38-83) % Lymph % (Auto) (25-47) % Dare % (Auto) (1-9) % Eos % (Auto) (0-6) % Baso % (Auto) (0-2) % Absolute Neuts (auto) (1.5-7.7) 10^3/ul Absolute Lymphs (auto) (1.0-4.8) 10^3/ul Absolute Monos (auto) (0-0.8) 10^3/ul Absolute Eos (auto) (0-0.6) 10^3/ul Absolute Basos (auto) (0-0.2) 10^3/ul Absolute Nucleated RBC 10^3/ul Nucleated RBC % INR (Anticoag Therapy) 2.11 H (0.89-1.11) APTT 41.4 H (26.0-36.3) seconds D-Dimer, Quantitative < 200 (Less Than 230) ng/mL Sodium 136 (133-145) mmol/L Potassium 4.0 (3.5-5.0) mmol/L Chloride 103 (101-111) mmol/L Carbon Dioxide 22 (22-32) mmol/L Anion Gap 11 (2-11) mmol/L BUN 26 H (6-24) mg/dL Creatinine 1.51 H (0.67-1.17) mg/dL Est GFR ( Amer) 58.7 (>60) Est GFR (Non-Af Amer) 45.7 (>60) BUN/Creatinine Ratio 17.2 (8-20) Glucose 99 (70-100) mg/dL Calcium 9.8 (8.6-10.3) mg/dL Magnesium 2.0 (1.9-2.7) mg/dL Total Bilirubin 0.40 (0.2-1.0) mg/dL AST 30 (13-39) U/L ALT 32 (7-52) U/L Alkaline Phosphatase 24 L (34-104) U/L Total Creatine Kinase 71 (10-223) U/L CK-MB (CK-2) 2.4 (0.6-6.3) ng/mL Troponin I 0.01 (<0.04) ng/mL B-Natriuretic Peptide 158 H ( - 100) pg/mL Total Protein 7.5 (6.4-8.9) g/dL Albumin 4.3 (3.2-5.2) g/dL Globulin 3.2 (2-4) g/dL Albumin/Globulin Ratio 1.3 (1-3) TSH 2.16 (0.34-5.60) mcIU/mL Urine Color Urine Appearance Urine pH (5-9) Ur Specific [place] (1.010-1.030) Urine Protein (Negative) Urine Ketones (Negative) Urine Blood (Negative) Urine Nitrate (Negative) Urine Bilirubin (Negative) Urine Urobilinogen (Negative) Ur Leukocyte Esterase (Negative) Urine Glucose (Negative) Urine Ascorbic Acid (Negative) 05/01/17 05/01/17 05/01/17 Range/Units 12:10 14:20 15:34 WBC 10.4 (3.5-10.8) 10^3/ul RBC 4.92 (4.0-5.4) 10^6/ul Hgb 14.9 (14.0-18.0) g/dl Hct 45 (42-52) % MCV 91 (80-94) fL MCH 30 (27-31) pg MCHC 33 (31-36) g/dl RDW 15 (10.5-15) % Plt Count 243 (150-450) 10^3/ul MPV 10 (7.4-10.4) um3 Neut % (Auto) 41.0 (38-83) % Lymph % (Auto) 36.0 (25-47) % Dare % (Auto) 9.6 H (1-9) % Eos % (Auto) 12.2 H (0-6) % Baso % (Auto) 1.2 (0-2) % Absolute Neuts (auto) 4.2 (1.5-7.7) 10^3/ul Absolute Lymphs (auto) 3.7 (1.0-4.8) 10^3/ul Absolute Monos (auto) 1.0 H (0-0.8) 10^3/ul Absolute Eos (auto) 1.3 H (0-0.6) 10^3/ul Absolute Basos (auto) 0.1 (0-0.2) 10^3/ul Absolute Nucleated RBC 0.03 10^3/ul Nucleated RBC % 0.3 INR (Anticoag Therapy) (0.89-1.11) APTT (26.0-36.3) seconds D-Dimer, Quantitative (Less Than 230) ng/mL Sodium (133-145) mmol/L Potassium (3.5-5.0) mmol/L Chloride (101-111) mmol/L Carbon Dioxide (22-32) mmol/L Anion Gap (2-11) mmol/L BUN (6-24) mg/dL Creatinine (0.67-1.17) mg/dL Est GFR ( Amer) (>60) Est GFR (Non-Af Amer) (>60) BUN/Creatinine Ratio (8-20) Glucose (70-100) mg/dL Calcium (8.6-10.3) mg/dL Magnesium (1.9-2.7) mg/dL Total Bilirubin (0.2-1.0) mg/dL AST (13-39) U/L ALT (7-52) U/L Alkaline Phosphatase (34-104) U/L Total Creatine Kinase (10-223) U/L CK-MB (CK-2) (0.6-6.3) ng/mL Troponin I 0.02 (<0.04) ng/mL B-Natriuretic Peptide ( - 100) pg/mL Total Protein (6.4-8.9) g/dL Albumin (3.2-5.2) g/dL Globulin (2-4) g/dL Albumin/Globulin Ratio (1-3) TSH (0.34-5.60) mcIU/mL Urine Color Yellow Urine Appearance Clear Urine pH 6.0 (5-9) Ur Specific [place] 1.014 (1.010-1.030) Urine Protein Negative (Negative) Urine Ketones Negative (Negative) Urine Blood Negative (Negative) Urine Nitrate Negative (Negative) Urine Bilirubin Negative (Negative) Urine Urobilinogen Negative (Negative) Ur Leukocyte Esterase Negative (Negative) Urine Glucose Negative (Negative) Urine Ascorbic Acid * H (Negative) Result Diagrams: 05/01/17 12:10 05/01/17 12:10 Lab Statement: Any lab studies that have been ordered have been reviewed, and results considered in the medical decision making process. - Radiology CXR Radiology Interpretation Completed By: Radiologist - No radiographic evidence of acute cardiopulmonary disease. ED physician has reviewed this radiology report and agrees. - EKG 12:15 Cardiac Rate: NL EKG Rhythm: Sinus Rhythm - NSP at 66 BPM EKG Interpretation: LBBB EKG Comparison: Other - There are changes from EKG 04/24 Chest Pain Course/Dx - Course Assessment/Plan: In the ED course an IV access was obtained. Patient was placed in a truss maker. Patient was started with IV fluids. Labs without any significant abnormality except for INR 2.11, chronic RF with BUN 26 and creatinine 1.5. D dimer is 1.58. Troponin #1: 0.02 and Troponin # 2 (4 hours later): 0.01. EKG shows a NSR at w/o ST elevations. CXR impression: No acute pathology. Patient is feeling better and has no complaints nor SOB. I discussed all the findings and test results with the patient. Patient was instructed to return to the emergency room immediately if any of the symptoms return or worsens . Plan of care was discussed with the patient and understands and agrees. All questions were answered at patient satisfaction. There were no further complaints or concerns. Lung exam before discharge: CTA B/L. Good air exchange. No wheezing or crackles heard. CVS: S1 and S2 present. No murmurs appreciated. Patient is alert and oriented x 3. Patient is hemodynamically stable. Patient will be discharged home with follow up building operator in the next 2-3 days - Chest Pain Differential Diagnosis/HQI/PQRI: Acute CA, ACS, Angina, CHF, Chest Wall, GI Disease, Lower Respiratory Infection, Pulmonary Edema - Diagnoses Provider Diagnoses: SOB (shortness of breath), Chest pain Discharge - Discharge Plan Condition: Stable Disposition: HOME Patient Education Materials: Chest Pain (ED), Dyspnea (ED) Referrals: Jesus Manuel Ga MD [Primary Care Provider] - Additional Instructions: RETURN TO THE EMERGENCY DEPARTMENT FOR CHANGING OR WORSENING SYMPTOMS. The documentation as recorded by the Sudarshan smith Gabriel accurately reflects the service I personally performed and the decisions made by , Tanner Martinez MD.
[2017-05-01 16:42] VITALS: BP 111/83
== END 2017-05-01 16:42 | disposition home or self-care (01) ==
LOC: ED 11:33
DX: R06.02 Shortness of breath (principal); R07.9 Chest pain, unspecified; Z95.810 Presence of automatic (implantable) cardiac defibrillator; Z86.74 Personal history of sudden cardiac arrest; I25.10 Atherosclerotic heart disease of native coronary artery without angina pectoris; E78.00 Pure hypercholesterolemia, unspecified; I10 Essential (primary) hypertension; I25.2 Old myocardial infarction; Z87.891 Personal history of nicotine dependence; I44.7 Left bundle-branch block, unspecified
CPT/HCPCS: 36415; 71020; 80053; 81003; 82550; 82553; 83735; 83880; 84443; 84484; 85025; 85379; 85610; 85730; 93005; 99283

== ENCOUNTER 2018-07-19 08:44 | Inpatient (IN) | payer MEDICARE ==
--- NOTE | 2018-07-19 09:09 | ED ---
Shortness of Breath - HPI Summary HPI Summary: Patient is a 72-year-old who presents emergency department for abdominal distention, diarrhea and shortness of breath. Family states he started feeling unwell about 3 days ago with abdominal pain and diarrhea. Today he started with shortness of breath and chest discomfort. He has history of CHF, pacemaker , CAD, high cholesterol, HTN. Pt. notes SOB secondary to abd. distention. Symptoms are moderate in severity. No current modifying factors. - History of Current Complaint Chief Complaint: EDShortnessOfBreath Time Seen by Provider: 07/19/18 08:58 Hx Obtained From: Patient, Family/Health Care Technician - Allergy/Home Medications Allergies/Adverse Reactions: Allergies Allergy/AdvReac Type Severity Reaction Status Date / Time lisinopril Allergy Rash Verified 07/19/18 08:59 losartan Allergy Rash Verified 07/19/18 08:59 niacin Allergy Flushing Verified 07/19/18 08:59 [From Niaspan Extended-Release] Home Medications: Home Medications Fenofibrate(NF) [Tricor(NF)] 145 mg PO DAILY 07/19/18 [History Confirmed ] Warfarin TAB(*) [Coumadin TAB(*)] 1.25 mg PO MOWEFR 07/19/18 [History Confirmed 07/19/18] Warfarin TAB(*) [Coumadin TAB(*)] 2.5 mg PO SUTUTHSA 07/19/18 [History Confirmed 07/19/18] PMH/Surg Hx/FS Hx/Imm Hx Previously Healthy: Yes Endocrine/Hematology History: Denies: Hx Diabetes Cardiovascular History: Reports: Hx Auto Implanted Cardiovert Defib, Hx Cardiac Arrest, Hx Congestive Heart Failure, Hx Coronary Artery Disease, Hx Deep Vein Thrombosis, Hx Hypercholesterolemia, Hx Hypertension, Hx Myocardial Infarction Denies: Hx Angina Respiratory History: Reports: Hx Pneumonia Denies: Hx Asthma History: Reports: Other Problems/Disorders - bilateral renal emboli Musculoskeletal History: Reports: Hx Arthritis, Hx Back Problems Sensory History: Reports: Hx Contacts or Glasses Denies: Hx Hearing Aid Opthamlomology History: Reports: Hx Contacts or Glasses - Surgical History Surgery Procedure, Year, and Place: Stents X4; rhinoplasty defibulator-2013 Hx Anesthesia Reactions: No - Immunization History Date of Influenza Vaccine: 03/2018 Immunizations Up to Date: Yes Infectious Disease History: No Infectious Disease History: Denies: Hx of Known/Suspected MRSA, Traveled Outside the [place] in Last 30 Days - Family History Known Family History: Positive: Cardiac Disease, Diabetes - Social History Occupation: Retired Lives: With Family Alcohol Use: None Substance Use Type: Reports: None Smoking Status (MU): Former Smoker Review of Systems Constitutional: Negative Negative: Fever, Chills Eyes: Negative ENT: Negative Positive: Chest Pain Positive: Shortness Of Breath, Cough Positive: Abdominal Pain, Diarrhea. Negative: Vomiting Genitourinary: Negative Musculoskeletal: Negative Skin: Negative Neurological: Negative All Other Systems Reviewed And Are Negative: Yes Physical Exam Vital Signs On Initial Exam: Initial Vitals Temp Pulse Resp BP Pulse Ox 98.9 F 80 17 116/83 92 07/19/18 08:56 07/19/18 08:56 07/19/18 08:56 07/19/18 08:56 07/19/18 08:56 Vital Signs Reviewed: Yes Appearance: Positive: Ill-Appearing - Pt. sitting up in bed hyperventilating. Family present. Skin: Positive: Warm, Dry Head/Face: Positive: Normal Head/Face Inspection Eyes: Positive: Normal, EOMI Neck: Positive: Supple Respiratory/Lung Sounds: Positive: Other - Decreased breath sounds throughout. Negative: Rales, Rhonchi, Wheezes Cardiovascular: Positive: Normal, RRR. Negative: Leg Edema Left, Leg Edema Right Abdomen Description: Positive: Other: - Abd. is distended with pain on palpation throughout Musculoskeletal: Positive: Normal, Strength/ROM Intact Neurological: Positive: Normal, CN Intact II-III Psychiatric: Positive: Affect/Mood Appropriate Diagnostics - Vital Signs Vital Signs Temp Pulse Resp BP Pulse Ox 07/19/18 08:56 98.9 F 80 17 116/83 92 - Laboratory Result Diagrams: 07/19/18 09:13 07/19/18 09:13 Lab Statement: Any lab studies that have been ordered have been reviewed, and results considered in the medical decision making process. Course/Dx - Course Course Of Treatment: Pt. presenting with abd. distention and SOB. Pt. is afebrile. O2 saturation is 94% on RA which is low normal. Will obtain cardiac and abd. workup. IV placed. Respiratory called. ECG done at 0915 shows paced sinus rhythm of 88bpm, LBBB, no STEMI, similar to prior tracing. CBC unremarkable. CMP shows mild elevation in liver enzymes. CRP elevated. Negative troponin. Negative ddimer. BNP 200. CXR negative for acute findings. CT abd/ pelvis per radiology: IMPRESSION: There are dilated loops of small bowel loops with collapsed distal loops. No. transition may be in the right lower quadrant. This is consistent with a small bowel obstruction.Hepatic steatosis. Atherosclerotic aorta. Case discussed with surgery, Dr. Nolasco, who will consult on pt. NG tube placed with good drainage. Hospitalist, Dr. Paz, was contacted for admission. - Diagnoses Differential Diagnosis/HQI/PQRI: Positive: Bronchitis, CHF, COPD Exacerbation, IN, Pneumonia, Pneumothorax, Pulmonary Embolism Provider Diagnoses: Small bowel obstruction Discharge - Sign-Out/Discharge Documenting (check all that apply): Patient Departure Patient Received Moderate/Deep Sedation with Procedure: No - Discharge Plan Condition: Stable Disposition: ADMITTED TO [facility] Referrals: Jesus Manuel Ga MD [Primary Care Provider] - - Billing Disposition and Condition Condition: STABLE Disposition: Admitted to [facility]
[2018-07-19] MEDS ORDERED: Albuterol/Ipratropium NEB.SOL* Albuterol 2.5 MG/Ipratropium 0.5 MG 3 ML INH ONE (09:20)
[2018-07-19] MEDS ORDERED: Albuterol/Ipratropium NEB.SOL* Albuterol 2.5 MG/Ipratropium 0.5 MG 3 ML ONE (09:21)
[2018-07-19 09:24] LABS: Hematocrit 47 % (42-52); Hemoglobin 15.8 g/dl (14.0-18.0); Mean Corpuscular HGB Conc 34 g/dl (31-36); Mean Corpuscular Hemoglobin 31 pg (27-31); Mean Corpuscular Volume 91 fL (80-94); Mean Platelet Volume 9.6 fL (7.4-10.4); Platelet Count 192 10^3/ul (150-450); Red Blood Count 5.18 10^6/ul (4.00-5.40); Red Cell Distribution Width 15 % (10.5-15); White Blood Count 8.3 10^3/ul (3.5-10.8)
[2018-07-19 09:43] LABS: Albumin 4.1 g/dL (3.2-5.2); Albumin/Globulin Ratio 1.3 (1-3); BUN/Creatinine Ratio 21.4 (8-20); C Reactive Protein 85.04 mg/L (<8.01); Calcium 9.3 mg/dL (8.6-10.3); EGFR African American 77.8 (>60); EGFR Non-African American 64.3 (>60); Globulin 3.2 g/dL (2-4); Magnesium 1.6 mg/dL (1.9-2.7); Potassium 3.8 mmol/L (3.5-5.0); Total Bilirubin 0.5 mg/dL (0.2-1.0); Total Protein 7.3 g/dL (6.4-8.9); Troponin I 0.03 ng/mL (<0.04)
[2018-07-19 09:45] LABS: Activated Partial Thrombo Time 39.2 seconds (26.0-36.3); INR 1.91 (0.77-1.02)
[2018-07-19 09:56] LABS: ABS Basophils 0.1 10^3/ul (0-0.2); ABS Eosinophils 0.4 10^3/ul (0-0.6); ABS Lymphocytes 1.8 10^3/ul (1.0-4.8); ABS Monocytes 1.8 10^3/ul (0-0.8); ABS Neutrophils 4.3 10^3/ul (1.5-7.7)
[2018-07-19 10:01] LABS: Immature Granulocytes 4 % (0-9); Lymphocytes % 14 %; Metamyelocytes % 1 % (0-2); Monocytes % 14 %; Neutrophil % 48 %; Variant Lymph % 11 % (0-6)
[2018-07-19 10:02] LABS: ABS Neutrophils 4.3 10^3/ul (1.5-7.7)
[2018-07-19 10:03] LABS: ABS Basophils 0.1 10^3/ul (0-0.2); ABS Eosinophils 0.7 10^3/ul (0-0.6)
[2018-07-19] MEDS ORDERED: Iodixanol* (CONTRAST) 320 MG/ML 100 ML SDV IV ONE (10:07)
[2018-07-19 10:12] LABS: Influenza A Molecular NEGATIVE (Negative); Influenza B Molecular NEGATIVE (Negative)
[2018-07-19] MEDS ORDERED: Magnesium Sulfate 2 GM IV* 2 GM/50 ML BAG IVPB ONE (11:48)
[2018-07-19] MEDS ORDERED: Albuterol 2.5 MG/3 ML NEB.SOL* (0.083%) INH PRN (12:09)
[2018-07-19] MEDS ORDERED: Morphine VIAL* 10 MG/ML 1 ML VIAL IV PRN (12:09)
[2018-07-19] MEDS ORDERED: NS 0.9% 1000 ML** 1,000 ML IV SCH (12:15)
[2018-07-19] MEDS ORDERED: Pantoprazole IV* 40 MG IV SCH (13:00)
[2018-07-19] MEDS ORDERED: Morphine INJ* 2 MG/ML 1 ML SYRINGE (TWO MG - NEW SYRINGE VERSION) IV PRN (14:14)
--- NOTE | 2018-07-19 16:58 | HP ---
CC: Dr. Ga.* HISTORY AND PHYSICAL: DATE OF ADMISSION: 07/19/18. PROVIDER: Bridgette Morrow NP. PRIMARY CARE PROVIDER: Dr. Ga. ATTENDING PHYSICIAN WHILE IN THE HOSPITAL: Dr. Shiela Paz * (dictated by Bridgette Morrow NP). CHIEF COMPLAINT: 1. Shortness of breath. 2. Chest pain with deep breath. HISTORY OF PRESENT ILLNESS: Mr. Davis is a 72-year-old male with past medical history significant for coronary artery disease, history of right renal infarct , V- tach arrest status post AICD, severe ischemic cardiomyopathy, hypertension , hyperlipidemia, and history of atrial fibrillation, who presented to the emergency room with complaints of chest pain and shortness of breath. The patient states that he has had a cough since Thursday that has been nonproductive. He reports that he has developed chest pain that is worse with coughing and deep breath. He denies any fever or chills. He also reports that he starts having diarrhea on Thursday and has multiple bowel movements daily after eating. He reports that they are loose and brown. Denies any blood or back or tarry stools. He denies any vomiting. Did report some nausea yesterday. He denies any abdominal pain. Denies any gross hematuria or dysuria , focal weakness or sensory loss. Denies any visual complaints. He has trouble swallowing, rashes, lesions or open sores. The patient does report that he did eat toast and tea this morning for breakfast and tolerated that without difficulty. While in the emergency room, the patient had routine lab work drawn. He has a chest x-ray that showed no acute cardiopulmonary disease. He did have a CT of the abdomen and pelvis, which showed small bowel obstruction. So, an NG tube was placed for decompression and surgery was consulted. Due to the small bowel obstruction, we were asked to see and evaluate him for admission. PAST MEDICAL HISTORY: Significant for: 1. Hypertension. 2. Hyperlipidemia. 3. History of atrial fibrillation. 4. History of severe ischemic cardiomyopathy. 5. History of V-tach arrest, status post AICD in 2011, replaced in 2013. 6. CAD. 7. History of right renal infarct. PAST SURGICAL HISTORY: 1. AICD placement. 2. Back surgery. HOME MEDICATIONS: 1. Aspirin 81 mg p.o. daily. 2. Sotalol 40 mg p.o. b.i.d. 3. Simvastatin 60 mg p.o. daily. 4. Potassium chloride 20 mEq p.o. daily. 5. Furosemide 20 mg p.o. daily. 6. Coumadin 1.25 mg Thursday, Thursday and Thursday. 7. Coumadin 2.5 mg Thursday, Thursday, , and Thursday. 8. Fenofibrate 145 mg. 9. Lotrisone cream topically as needed b.i.d. ALLERGIES: To LISINOPRIL, LOSARTAN, and NIACIN. FAMILY HISTORY: Father at the age of 72 with coronary artery disease. Sister with a history of stroke and hypertension. No reports of diabetes or cancer. Brother with a history of stomach cancer. SOCIAL HISTORY: The patient is a former smoker, quit approximately 20 years ago. He denies any alcohol or illicit drug use. He is a retired from [employer]. Surrogate decision maker in the event he is unable to make his own decision is his sister, Lulu Reza. Her phone number is [phone]. He is a DNR/DNI. A MOLST form was completed and placed on the chart. REVIEW OF SYSTEMS: The patient denies any fever or chills. Denies any unintended weight loss. He does report chest pain with cough and deep breath. Denies any swelling, weight gain. He does report cough. Does any weight gain. He does report cough. Denies any hemoptysis. He does report some mild shortness of breath. Does report nausea yesterday and diarrhea on Thursday. Denies black or tarry stools. Denies any abdominal pain. Denies blood in the stool. Denies any gross hematuria or dysuria. Denies any focal weakness or sensory loss. Denies any visual complaints, dysphagia, arthralgias, or myalgias. Denies any open rashes or lesions. Denies any psychosis or anxiety. PHYSICAL EXAMINATION GENERAL: At this time, Mr. Davis is a 72-year-old male. He is alert and oriented sitting on the stretcher in the emergency room. He does not appear to be in any acute distress. VITAL SIGNS: Blood pressure 116/83, temperature was 98.9, heart rate is 80, respirations are 17, O2 saturation 94% on room air. HEENT: Head is atraumatic, normocephalic. Eyes: EOMs are intact. Sclerae anicteric and not pale. Oral mucosa appears to be moist. NECK: Supple. LUNGS: Clear to auscultation bilaterally. No wheezes, rales, or rhonchi. CARDIAC: S1, S2. Regular rate and rhythm. No murmurs, rubs, or gallops. ABDOMEN: Rounded, soft, slightly distended. Bowel sounds are present x4. EXTREMITIES: Pulses are +2 bilaterally. He is able to move all four extremities with 5/5 strength. NEUROLOGIC: He is awake, alert, and oriented x3. Speech is clear. Thought process is intact. There are no gross focal deficits. SKIN: Intact. DIAGNOSTIC STUDIES/LAB DATA: WBCs were 8.3, RBCs 5.18, hemoglobin 15.8, hematocrit was 47, platelet count was 192, INR was 1.91, PTT was 39.2, D-dimer was less than 200. Sodium 134, potassium 3.8, chloride 105, carbon dioxide was 19, anion gap was 10, BUN was 24, creatinine 1.12, glucose is 119, lactic acid 1.2, calcium 9.3, magnesium 1.6, total bilirubin was 0.50, AST were 53, ALTs were 68, alkaline phosphatase was 23, troponin was 0.03. C-reactive protein was 85.04. BNP was 201, lipase was 10, flu A and B were negative. Urine is currently pending. He had a CT of abdomen and pelvis radiologist impression, there are dilated loops of the small bowels with collapsed distal loops. No transition may be in the right lower quadrant. This is consistent with small bowel obstruction with hepatic steatosis and atherosclerotic aorta. He had a chest x-ray showed no active cardiopulmonary disease. He had an electrocardiogram that showed sinus rhythm at a rate of 88. ASSESSMENT AND PLAN: Mr. Davis is a 72-year-old male, who presented to the emergency room with complaints of chest pain or shortness of breath on Thursday and diarrhea, who was found to have a small bowel obstruction. We were asked to see and evaluate the patient due to small bowel obstruction. He will be admitted under observation status. 1. Small bowel obstruction. The patient does have an NG in place at this time. He has a small amount of clear secretions. I will continue the NG. Surgery was consulted. We will proceed based on their recommendations. At this time, I will hold oral medications and please send 40 mg IV daily. 2, Coronary artery disease. At this time, we will monitor him on telemetry. I will hold off meds until his NG is removed and then restart his medications. 3. History of atrial fibrillation. We will hold his Coumadin today due to being NPO and an NG in place. We will monitor his INR levels and repeat an INR tomorrow morning. If the patient continues to need an NG and Coumadin is held, should consider bridging of Lovenox. 4. Hyperlipidemia. We will hold his Tricor until he is able to tolerate oral fluids. 5. Diarrhea. I will place the patient on normal saline 75 cc per hour while he is NPO and continues to have diarrhea. 6. Hypomagnesemia. We will give him magnesium 2 g and repeat a magnesium level in the a.m. 7. Cough and shortness of breath. We will continue with supportive care. At this time, the patient is afebrile and denies any fever or chills. The cough is nonproductive. His O2 saturation is within normal limits at 94%. We will continue to monitor and treat as needed. 8. DVT prophylaxis: I will place him on SCDs. This patient is currently on Coumadin. 9. Code status: He is a DNR/DNI. 10. Fluids, electrolytes, and nutrition: The patient will be NPO. TIME SPENT: Time spent on this admission was 60 minutes, greater than half that time was spent [id number] with the patient obtaining my history and physical and the other half of the time was spent going over my plan of care, and implementing my plan of care. I have discussed this with my attending, Dr. Shiela Paz; she is in agreement with my plan. BRIDGETTE MORROW, HARITHA [id number]/[facility] #: [id number] MARTIN
[2018-07-19] MEDS ORDERED: Warfarin TAB(*) 2.5 MG PO SCH (17:00)
[2018-07-19] MEDS: Benzonatate CAP* 100 MG PO PRN ×2 (18:23→22:50)
--- NOTE | 2018-07-19 18:53 | CONS ---
CC: Dr. Jesus Manuel Ga * CONSULTATION REPORT: DATE OF CONSULT: 07/19/18 REFERRING PROVIDER: Bridgette Morrow NP, hospitalist service. REASON FOR CONSULT: Nausea with abdominal distention. HISTORY OF PRESENT ILLNESS: Mr. Glen Davis is a 72-year-old gentleman who lives with his sister, who presented to the emergency room today with complaints of some abdominal distention, nausea and diarrhea. He stated this started on Thursday when he had multiple loose episodes of nonbloody diarrhea. He does not have any vomiting, but he described he complained of some mild abdominal distention with discomfort, but no crampy abdominal pain. He has had no fevers, shakes or chills. In addition, he had some dry cough with some shortness of breath. He has been keeping liquids down for the last several days, but when he had more difficulty breathing, he presented to the emergency room this morning. While here, he was noted to be afebrile without evidence of tachycardia. His abdomen was soft, but distended with diminished bowel sounds throughout. His laboratory values included a normal white blood cell count. Electrolytes were within normal limits; however, he did have a carbon dioxide of 19. Lactic acid 1.2. Total bilirubin 0.5 and AST and ALT are 53 and 68 and a C-reactive protein of 85. Lipase was 10. He underwent a chest x-ray that showed no acute change. His BNP was 201. Due to the fact that he was noted to have some abdominal distention and with his complaints of nausea, he underwent a CT scan of the abdomen and pelvis. I did review these images. This show some proximal small bowel distention with some relative decreased caliber of the distal small bowel without evidence of a transition point. There was a large amount of air throughout the colon, specifically the right colon and transverse colon. There were no masses noted. There was no fluid. There were no other findings. The patient was admitted to the medical service for management of his pulmonary symptoms, as well as his abdominal distention and surgical consultation was obtained as there was concern on the CT scan reading of a small bowel obstruction. The patient has not had prior abdominal surgery. PAST MEDICAL HISTORY: 1. Coronary artery disease with history of myocardial infarction and congestive heart failure. 2. Elevated cholesterol. 3. Hypertension. PAST SURGICAL HISTORY: Past abdominal surgery is none. ICD placement as well. MEDICINES ON ADMISSION: Included. 1. Aspirin. 2. Sotalol. 3. Simvastatin. 4. Potassium chloride. 5. Lasix. 6. Coumadin. 7. Tricor. SOCIAL HISTORY: He quit smoking several years ago . He is retired. He lives with his sister. He does not use alcohol. REVIEW OF SYSTEMS: Otherwise unremarkable. PHYSICAL EXAM: In general, he is a well-developed, well-nourished male, appears to be somewhat fatigued. He is in no acute distress. His lungs with diminished breath sounds throughout with some expiratory wheezes. Heart was a regular rate and rhythm without murmurs, rubs, or gallops. He has an AICD placed in the left upper chest wall. His abdomen is soft, but protuberant. He had diminished bowel sounds throughout. There are no prior surgical incisions. He has no rebound, guarding or peritoneal irritation. However, there is some mild generalized discomfort without guarding or rigidity. Psychiatric: He is awake, alert, and oriented x3. He has normal judgment and insight. IMPRESSION: Abdominal distention with some nausea without profuse vomiting. He said he has had 4 to 5 loose bowel movements a day since Thursday and associated with some pulmonary congestion with cough and shortness of breath. CT scan findings as above. On my review of the CT scan, it does show that there is some mild proximal dilation of the small intestine with distally more collapsed small bowel, but no evidence of transition point. There is a large amount of air in the right colon and transverse colon. Not mentioned above that the patient has been passing flatus fairly regularly over the past several days. At this point, I am not convinced that he has a mechanical small bowel obstruction; however, this may more likely be an enteritis versus an ileus, associated with either a pulmonary issue or a primary gastrointestinal illness, which I believe will be self-limiting. I would recommend that we discontinue nasogastric tube that this is not really particularly draining much and it will interfere with his pulmonary status. I think that he would be okay with sips of clear liquids and continued observe. He will be dehydrated and observed and I will discuss his care with the hospitalist service. Thank you very much for this consultation. [id number]/[facility] #: [id number] [facility]ITAL[facility]
[2018-07-19] MEDS: Sotalol TAB* 80 MG PO SCH (22:47)
[2018-07-20 02:54] LABS: Urine Appearance Cloudy; Urine Bilirubin Negative (Negative); Urine Blood Negative (Negative); Urine Color Yellow; Urine Glucose Negative (Negative); Urine Ketones Trace (Negative); Urine Nitrite Negative (Negative); Urine Protein Negative (Negative); Urine Urobilinogen Negative (Negative)
[2018-07-20 06:13] LABS: ABS Basophils 0 10^3/ul (0-0.2); ABS Eosinophils 0.5 10^3/ul (0-0.6); ABS Lymphocytes 2.4 10^3/ul (1.0-4.8); ABS Monocytes 1.5 10^3/ul (0-0.8); ABS Neutrophils 2.3 10^3/ul (1.5-7.7); ABS Nucleated RBC 0 10^3/ul; Hematocrit 42 % (42-52); Hemoglobin 14.2 g/dl (14.0-18.0); Mean Corpuscular HGB Conc 34 g/dl (31-36); Mean Corpuscular Hemoglobin 31 pg (27-31); Mean Corpuscular Volume 90 fL (80-94); Nucleated Red Blood Cells % 0.1; Platelet Count 176 10^3/ul (150-450); Red Blood Count 4.65 10^6/ul (4.00-5.40); Red Cell Distribution Width 14 % (10.5-15); White Blood Count 6.7 10^3/ul (3.5-10.8)
[2018-07-20 06:18] LABS: INR 2.31 (0.77-1.02)
[2018-07-20 06:30] LABS: BUN/Creatinine Ratio 23.2 (8-20); Calcium 8.2 mg/dL (8.6-10.3); EGFR African American 111.4 (>60); EGFR Non-African American 92.1 (>60); Magnesium 1.9 mg/dL (1.9-2.7); Potassium 3.3 mmol/L (3.5-5.0)
--- NOTE | 2018-07-20 09:32 | PN ---
Subjective Date of Service: 07/20/18 Interval History: Resting in bed. Reports he feels much improved. Patient reports upon presentation to the ED last evening he could not take a deep breath due to his abd feeling distended. He reports today he can breath deeply and normally without difficulty. He also reports previous distention in abd has resolved. Patient continues to have some diarrhea. Per nurse, he had 2 episodes of diarrhea overnight and patient reports 1 episode this morning. Denies cp, sob, palpitations, nausea, vomiting, abd pain, fever/chills, weakness. Objective Active Medications: Albuterol (Ventolin 2.5 Mg/3 Ml Neb.Yuki*) 2.5 mg INH [id number] AWAKE PRN PRN Reason: sob/wheezing Last Admin: 07/19/18 23:05 Dose: 2.5 mg Benzonatate (Tessalon Cap*) 100 mg PO BID PRN PRN Reason: COUGH Last Admin: 07/19/18 22:50 Dose: 100 mg Morphine Sulfate (Morphine Inj ((Syringe))*) 2 mg IV Q4H PRN PRN Reason: PAIN - MILD Last Admin: 07/19/18 14:32 Dose: 2 mg Pantoprazole Sodium (Protonix Iv*) 40 mg IV Q24H [facility] Last Admin: 07/19/18 14:32 Dose: 40 mg Sotalol HCl (Betapace Tab*) 40 mg PO BID [facility] Last Admin: 07/19/18 22:47 Dose: 40 mg Warfarin Sodium (Coumadin Tab(*)) 1.25 mg PO [facility]; Protocol Last Admin: 07/19/18 17:29 Dose: 1.25 mg Warfarin Sodium (Coumadin Tab(*)) 2.5 mg PO [facility]; Protocol Vital Signs - 8 hr 07/20/18 07/20/18 01:37 03:30 Temperature 98.1 F Pulse Rate 69 Respiratory 20 20 Rate Blood Pressure 109/72 (mmHg) O2 Sat by Pulse 97 Oximetry Oxygen Devices in Use Now: Nasal Cannula Appearance: Comfortable, NAD Eyes: No Scleral Icterus Ears/Nose/Mouth/Throat: Clear Oropharnyx, Mucous Membranes Moist Neck: NL Appearance and Movements; NL JVP Respiratory: Symmetrical Chest Expansion and Respiratory Effort, Clear to Auscultation Cardiovascular: NL Sounds; No Murmurs; No JVD, RRR, No Edema Abdominal: - - Abd is slightly distended, but soft to palpation. Patient reports mild tenderness to lower quads bilaterally Extremities: No Edema Skin: No Rash or Ulcers Neurological: Alert and Oriented x 3 Nutrition: Taking PO's Result Diagrams: 07/20/18 05:44 07/20/18 05:44 Additional Lab and Data: Laboratory Results - last 24 hr 07/19/18 07/19/18 07/19/18 09:13 09:13 09:13 WBC 8.3 RBC 5.18 Hgb 15.8 Hct 47 MCV 91 MCH 31 MCHC 34 RDW 15 Plt Count 192 MPV 9.6 Neut % (Auto) Not Reportable Lymph % (Auto) Not Reportable Pike % (Auto) Not Reportable Eos % (Auto) Not Reportable Baso % (Auto) Not Reportable Absolute Neuts (auto) 4.3 Absolute Lymphs (auto) 1.8 Absolute Monos (auto) 1.8 H Absolute Eos (auto) 0.4 Absolute Basos (auto) 0.1 Absolute Nucleated RBC Not Reportable Immature Gran % 4 Neutrophils % 48 Band Neutrophils % 3 Lymphocytes % 14 Reactive Lymphs % 11 H Monocytes % 14 Eosinophils % 8 Basophils % 1 Metamyelocytes % 1 Nucleated RBC % Not Reportable Abs Neuts (Manual) 4.3 Abs Lymphs (Manual) 2.1 Abs Monocytes (Manual) 1.2 H Absolute Eos (Manual) 0.7 H Abs Basophils (Manual) 0.1 Normal RBC Morphology Normal Hem Pathologist Commnt INR (Anticoag Therapy) 1.91 H APTT 39.2 H D-Dimer, Quantitative < 200 Sodium 134 L Potassium 3.8 Chloride 105 Carbon Dioxide 19 L Anion Gap 10 BUN 24 Creatinine 1.12 Est GFR ( Amer) 77.8 Est GFR (Non-Af Amer) 64.3 BUN/Creatinine Ratio 21.4 H Glucose 119 H Lactic Acid Calcium 9.3 Magnesium 1.6 L Total Bilirubin 0.50 AST 53 H ALT 68 H Alkaline Phosphatase 23 L Troponin I 0.03 C-Reactive Protein 85.04 H B-Natriuretic Peptide Total Protein 7.3 Albumin 4.1 Globulin 3.2 Albumin/Globulin Ratio 1.3 Lipase 10 L Urine Color Urine Appearance Urine pH Ur Specific [place] Urine Protein Urine Ketones Urine Blood Urine Nitrate Urine Bilirubin Urine Urobilinogen Ur Leukocyte Esterase Urine Glucose Urine Ascorbic Acid Influenza A (Rapid) Influenza B (Rapid) 07/19/18 07/19/18 07/19/18 09:13 09:13 10:00 WBC RBC Hgb Hct MCV MCH MCHC RDW Plt Count MPV Neut % (Auto) Lymph % (Auto) Pike % (Auto) Eos % (Auto) Baso % (Auto) Absolute Neuts (auto) Absolute Lymphs (auto) Absolute Monos (auto) Absolute Eos (auto) Absolute Basos (auto) Absolute Nucleated RBC Immature Gran % Neutrophils % Band Neutrophils % Lymphocytes % Reactive Lymphs % Monocytes % Eosinophils % Basophils % Metamyelocytes % Nucleated RBC % Abs Neuts (Manual) Abs Lymphs (Manual) Abs Monocytes (Manual) Absolute Eos (Manual) Abs Basophils (Manual) Normal RBC Morphology Hem Pathologist Commnt INR (Anticoag Therapy) APTT D-Dimer, Quantitative Sodium Potassium Chloride Carbon Dioxide Anion Gap BUN Creatinine Est GFR ( Amer) Est GFR (Non-Af Amer) BUN/Creatinine Ratio Glucose Lactic Acid 1.2 Calcium Magnesium Total Bilirubin AST ALT Alkaline Phosphatase Troponin I C-Reactive Protein B-Natriuretic Peptide 201 H Total Protein Albumin Globulin Albumin/Globulin Ratio Lipase Urine Color Urine Appearance Urine pH Ur Specific [place] Urine Protein Urine Ketones Urine Blood Urine Nitrate Urine Bilirubin Urine Urobilinogen Ur Leukocyte Esterase Urine Glucose Urine Ascorbic Acid Influenza A (Rapid) Negative Influenza B (Rapid) Negative 07/19/18 07/19/18 07/20/18 12:40 15:34 02:36 WBC RBC Hgb Hct MCV MCH MCHC RDW Plt Count MPV Neut % (Auto) Lymph % (Auto) Pike % (Auto) Eos % (Auto) Baso % (Auto) Absolute Neuts (auto) Absolute Lymphs (auto) Absolute Monos (auto) Absolute Eos (auto) Absolute Basos (auto) Absolute Nucleated RBC Immature Gran % Neutrophils % Band Neutrophils % Lymphocytes % Reactive Lymphs % Monocytes % Eosinophils % Basophils % Metamyelocytes % Nucleated RBC % Abs Neuts (Manual) Abs Lymphs (Manual) Abs Monocytes (Manual) Absolute Eos (Manual) Abs Basophils (Manual) Normal RBC Morphology Hem Pathologist Commnt INR (Anticoag Therapy) APTT D-Dimer, Quantitative Sodium Potassium Chloride Carbon Dioxide Anion Gap BUN Creatinine Est GFR ( Amer) Est GFR (Non-Af Amer) BUN/Creatinine Ratio Glucose Lactic Acid Calcium Magnesium Total Bilirubin AST ALT Alkaline Phosphatase Troponin I 0.03 0.03 C-Reactive Protein B-Natriuretic Peptide Total Protein Albumin Globulin Albumin/Globulin Ratio Lipase Urine Color Yellow Urine Appearance Cloudy Urine pH 5.0 Ur Specific [place] 1.030 Urine Protein Negative Urine Ketones Trace A Urine Blood Negative Urine Nitrate Negative Urine Bilirubin Negative Urine Urobilinogen Negative Ur Leukocyte Esterase Negative Urine Glucose Negative Urine Ascorbic Acid * A Influenza A (Rapid) Influenza B (Rapid) 07/20/18 07/20/18 07/20/18 05:44 05:44 05:44 WBC 6.7 RBC 4.65 Hgb 14.2 Hct 42 MCV 90 MCH 31 MCHC 34 RDW 14 Plt Count 176 MPV 10.0 Neut % (Auto) 33.9 Lymph % (Auto) 36.0 Pike % (Auto) 22.6 Eos % (Auto) 7.0 Baso % (Auto) 0.5 Absolute Neuts (auto) 2.3 Absolute Lymphs (auto) 2.4 Absolute Monos (auto) 1.5 H Absolute Eos (auto) 0.5 Absolute Basos (auto) 0 Absolute Nucleated RBC 0 Immature Gran % Neutrophils % Band Neutrophils % Lymphocytes % Reactive Lymphs % Monocytes % Eosinophils % Basophils % Metamyelocytes % Nucleated RBC % 0.1 Abs Neuts (Manual) Abs Lymphs (Manual) Abs Monocytes (Manual) Absolute Eos (Manual) Abs Basophils (Manual) Normal RBC Morphology Hem Pathologist Commnt INR (Anticoag Therapy) 2.31 H APTT D-Dimer, Quantitative Sodium 133 L Potassium 3.3 L Chloride 103 Carbon Dioxide 18 L Anion Gap 12 H BUN 19 Creatinine 0.82 Est GFR ( Amer) 111.4 Est GFR (Non-Af Amer) 92.1 BUN/Creatinine Ratio 23.2 H Glucose 90 Lactic Acid Calcium 8.2 L Magnesium 1.9 Total Bilirubin AST ALT Alkaline Phosphatase Troponin I C-Reactive Protein B-Natriuretic Peptide Total Protein Albumin Globulin Albumin/Globulin Ratio Lipase Urine Color Urine Appearance Urine pH Ur Specific [place] Urine Protein Urine Ketones Urine Blood Urine Nitrate Urine Bilirubin Urine Urobilinogen Ur Leukocyte Esterase Urine Glucose Urine Ascorbic Acid Influenza A (Rapid) Influenza B (Rapid) Microbiology and Other Data: Microbiology 07/19/18 09:13 Aerobic Blood Culture - Preliminary Blood Venous No Growth Day 1 Anaerobic Blood Culture - Preliminary No Growth Day 1 07/19/18 15:00 Nasal Screen MRSA (PCR) - Final Nasal Mrsa Detected 07/19/18 11:11 Stool Gross Appearance - Final Stool C. difficile DNA Amplification - Final 027 Presumptive NEGATIVE Toxigenic C.diff NEGATIVE 07/19/18 09:34 Influenza Types A,B Antigen - Final Nasal Specimen received for Influenza A/B Molecular testing Assess/Plan/Problems-Billing Assessment: 72 yr old male with pmh of cad, renal infaract, vtach arrest (AICD), severe ischemic cardiomyopathy; who presented to the emergency department with shortness of breath, cough, and diarrhea since Thursday - Patient Problems (1) Abdominal pain Comment: - Abd pain is resolving as he reports pain is now only in lower quads and abd distention is slowly resolving - Initial CT revealed possible SBO, therefore, NG tube was placed. - Surgery consulted and we very much appreciate their input. Per their recommendations, the NG tube was removed as it was not draining much and CT less suspicious for SBO and more consistent with enteritis versus illieus. - Patient has hypoactive bowel sounds throughout and reports improvement. - Currently tolerating sips of clears. Will advance slowly to clear diet. (2) HTN (hypertension) Comment: - Resume home medications as patient no longer has NG tube (3) Cardiomyopathy, ischemic Comment: - Last TTE showing EF 20% and EF 20-25% noted in 2013. - Cont home medications - AICD - Cont tele - Monitor and replace electrolytes as needed (4) DNR (do not resuscitate) (5) DVT prophylaxis Comment: - Patient on Coumadin Attending: Reji Mccain
[2018-07-20] MEDS ORDERED: Potassium Chlor TAB* 20 MEQ TAB.ER PO ONE (09:34)
[2018-07-20] MEDS ORDERED: Magnesium Sulfate 2 GM IV* 2 GM/50 ML BAG IVPB ONE (09:49)
[2018-07-20] MEDS ORDERED: Potassium Chlor TAB* 20 MEQ TAB.ER PO SCH (10:00)
[2018-07-20 10:11] LABS: Albumin 3.6 g/dL (3.2-5.2); Albumin/Globulin Ratio 1.2 (1-3); Indirect Bilirubin 0.5 mg/dL (0.3-1.0); Total Bilirubin 0.6 mg/dL (0.2-1.0); Total Protein 6.6 g/dL (6.4-8.9)
[2018-07-20] MEDS: Furosemide TAB* 20 MG PO SCH (10:25)
[2018-07-20] MEDS: Aspirin EC TAB* 81 MG TAB.EC PO SCH (10:26)
[2018-07-20] MEDS: Sotalol TAB* 80 MG PO SCH ×2 (10:26→21:13)
[2018-07-20] MEDS: CMC:Simvastatin TAB(NF) 20 MG TAB PO SCH (10:27)
[2018-07-20] MEDS: CMC:Fenofibrate(NF) 145 MG TAB PO SCH (11:12)
--- NOTE | 2018-07-20 12:30 | PN ---
Progress Note - Progress Note Date of Service: 07/20/18 SOAP: Subjective: Feels better-tolerating liquids, passing flatus and has had 3 loose BM's this morning No abdominal pain, no N/V Objective: Temp Pulse Resp BP Pulse Ox 97.5 F 63 22 108/64 98 07/20/18 08:12 07/20/18 08:12 07/20/18 08:12 07/20/18 08:12 07/20/18 08:12 PEX: Comfortable Abd is soft but distended and tympanitic-bowel sounds are present. There is no tenderness Assessment: Suspect gastroenteritis, not SBO Slowly improving but remains distended Plan: Liquids as tolerated Observe for now
[2018-07-20] MEDS: Potassium Chlor TAB* 20 MEQ TAB.ER PO SCH (16:17)
[2018-07-20] MEDS ORDERED: Warfarin TAB(*) 2.5 MG PO SCH (17:00)
[2018-07-21 06:48] LABS: ABS Basophils 0 10^3/ul (0-0.2); ABS Eosinophils 0.5 10^3/ul (0-0.6); ABS Lymphocytes 2.2 10^3/ul (1.0-4.8); ABS Monocytes 1.1 10^3/ul (0-0.8); ABS Neutrophils 2.5 10^3/ul (1.5-7.7); ABS Nucleated RBC 0 10^3/ul; Eosinophil % 7.8 %; Hematocrit 40 % (42-52); Hemoglobin 13.6 g/dl (14.0-18.0); Lymphocyte % 34.6 %; Mean Corpuscular HGB Conc 34 g/dl (31-36); Mean Corpuscular Hemoglobin 30 pg (27-31); Mean Corpuscular Volume 90 fL (80-94); Mean Platelet Volume 9.6 fL (7.4-10.4); Nucleated Red Blood Cells % 0.1; Platelet Count 176 10^3/ul (150-450); Red Blood Count 4.47 10^6/ul (4.00-5.40); Red Cell Distribution Width 15 % (10.5-15); White Blood Count 6.3 10^3/ul (3.5-10.8)
[2018-07-21 07:01] LABS: INR 2.42 (0.77-1.02)
[2018-07-21 07:15] LABS: Albumin 3.5 g/dL (3.2-5.2); Albumin/Globulin Ratio 1.2 (1-3); BUN/Creatinine Ratio 17.9 (8-20); Calcium 8.5 mg/dL (8.6-10.3); EGFR African American 117.7 (>60); EGFR Non-African American 97.3 (>60); Globulin 2.9 g/dL (2-4); Magnesium 1.9 mg/dL (1.9-2.7); Potassium 3.6 mmol/L (3.5-5.0); Total Bilirubin 0.5 mg/dL (0.2-1.0); Total Protein 6.4 g/dL (6.4-8.9)
[2018-07-21 08:09] VITALS: BP 106/68
[2018-07-21] MEDS: Furosemide TAB* 20 MG PO SCH (09:07)
[2018-07-21] MEDS: Sotalol TAB* 80 MG PO SCH (09:07)
[2018-07-21] MEDS: Potassium Chlor TAB* 20 MEQ TAB.ER PO SCH (09:07)
[2018-07-21] MEDS: CMC:Simvastatin TAB(NF) 20 MG TAB PO SCH (09:08)
[2018-07-21] MEDS: Aspirin EC TAB* 81 MG TAB.EC PO SCH (09:08)
[2018-07-21] MEDS: CMC:Fenofibrate(NF) 145 MG TAB PO SCH (11:17)
--- NOTE | 2018-07-21 22:43 | DS ---
CC: Dr. Ga * DISCHARGE SUMMARY: DATE OF ADMISSION: 07/19/18 DATE OF DISCHARGE: 07/21/18 PRIMARY CARE PROVIDER: Dr. Ga. ATTENDING PROVIDER: Dr. Mccain * (DICTATED BY NISHA MURRAY NP) PRIMARY DIAGNOSIS: Gastrointestinal illness. SECONDARY DIAGNOSES: 1. Coronary artery disease. 2. Renal infarct. 3. Ventricular tachycardia arrest with AICD. 4. Severe ischemic cardiomyopathy. 5. Hypertension. STUDIES WHILE IN THE HOSPITAL: 1. EKG: Sinus rhythm with a rate of 88. 2. Chest x-ray: Impression: No active cardiopulmonary disease. 3. CT of abdomen and pelvis: Impression: There are dilated loops of small bowel with collapsed distal loops. No transition may be in the right lower quadrant. This is consistent with small bowel obstruction with hepatic steatosis and atherosclerotic aorta. DISCHARGE HOME MEDICATIONS: [place] Medications: No new home medications. Changed Home Medications: No home medications changed. Continued Home Medications: 1. Lotrisone cream 1 application topical b.i.d. 2. Aspirin 81 mg p.o. daily. 3. Sotalol 40 mg p.o. b.i.d. 4. Simvastatin 60 mg p.o. daily. 5. Potassium 20 mEq p.o. daily. 6. Lasix 20 mg p.o. daily. 7. Warfarin 1.25 mg p.o. Thursday, Thursday, Thursday. 8. TriCor 145 mg p.o. daily. 9. Warfarin 2.5 mg p.o. Thursday, Thursday, , and Thursday. HISTORY OF PRESENT ILLNESS/HOSPITAL COURSE: Mr. Davis is a 73-year-old male with a past medical history significant for coronary artery disease, right renal infarct, V-tach arrest, status post AICD, severe ischemic cardiomyopathy, hypertension, hyperlipidemia, who presented to the emergency room with complaints of shortness of breath and chest pain. For details of events leading up to the patient's presentation to the emergency room, please see H and P dictated by Bridgette Morrow NP, but in short, the patient reports his chest pain was with cough or deep breathing. In addition, he reports he was having diarrhea since Thursday, which included multiple bowel movements daily. While in the emergency room, the patient had a CT of the abdomen, which showed small bowel obstruction, so NG tube was placed for decompression and Surgery was consulted. The patient was admitted to the medical floor and was seen by surgery. Dr. Nolasco from Surgery reviewed the patient's CT and was not convinced that he had mechanical small bowel obstruction and considered this was more likely enteritis versus ileus associated with pulmonary issue or a primary gastrointestinal illness, which he believed was self-limited. The patient's NG tube did not drain much gastrointestinal fluid, therefore, it was removed the next morning. The patient expressed relief from symptoms of chest pain, shortness of breath, abdominal distention. The patient's diet was slowly advanced starting with clear to regular diet. The patient tolerated this without difficulty. During the patient's admission, he also saw a decrease in frequency of bowel movements. In addition, he had a stool culture, which was negative for C. diff. The patient is stable for discharge for home today. The patient reports he feels ready. He is at his baseline. He is tolerating regular diet. He has no chest pain or abdominal pain. He is passing flatus. He has had a decrease in diarrhea. The patient's abdomen is slightly distended on exam, but the patient reports this is his baseline. REVIEW OF SYSTEMS: The patient denies abdominal pain, chest pain, palpitations , shortness of breath, nausea, vomiting, dizziness, headache. A 14-point review of systems was completed and all others were negative. PHYSICAL EXAMINATION: Vital Signs: Temp 98.3, pulse 63, RR 16, O2 sat 96% on room air, BP 106/68. General: Mr. Davis is a 73-year-old male who is sitting on the edge of the bed and his sister is at the bedside. He is in no acute distress. Appears stated age. HEENT: EOMs intact. PERRLA. Oral mucosa is moist, without lesions. Neck: Supple. No lymphadenopathy. Cardiac: S1, S2 present. No murmurs, rubs, or gallops. Respiratory: Lungs are clear. No rhonchi, wheezes, or rubs. Abdomen: Soft, nontender. Bowel sounds x4. Normoactive. Abdomen is slightly distended, but the patient reports this is his baseline. Extremities: No edema. No clubbing. No cyanosis. No pain. No deformity. Skin: Skin is intact. Neuro: Neurologic assessment is within normal limits. No focal deficits noted. LABORATORY DATA: WBC 6.3, hemoglobin 13.6, hematocrit 40, platelets 167. INR 2.42. Sodium 136, potassium 3.6, carbon dioxide 105, BUN 14, creatinine 0.20, glucose 106. DISCHARGE PLAN/FOLLOWUP: 1. Shortness of breath, chest pain with deep breath, abdominal pain: As mentioned above, the patient was initially admitted with what was assumed to be a small bowel obstruction. It was later suggested that this was not mechanical small bowel obstruction, but instead a process of possible viral illness. The patient has improved with supportive care. The patient was educated on a bland diet. The patient was educated on monitoring bowel movements. The patient agrees to return to the emergency department or call PCP if any new or worsening symptoms. 2. Hypertension: The patient is to continue his home medications as same. 3. Hyperlipidemia: The patient is to continue his home medications as same. 4. Severe ischemic cardiomyopathy: The patient is to continue his home medications as same. The patient was free from signs of any exacerbation while inpatient. 5. History of V-tach arrest, status post AICD: The patient to follow up with director business systems as recommended. 6. Education: I discussed signs and symptoms of worsening conditions, when to return to the emergency department with the patient and his sister, who he lives with. Both stated understanding. This plan was discussed with my attending, Dr. Mccain, who agrees with my plan. TIME SPENT: Approximately 35 minutes were spent on this discharge, greater than half that time was spent [id number] with the patient discussing my discharge plan and instructions. NISHA MURRAY, HARITHA [id number]/[facility] #: [id number] [place]
== END 2018-07-21 13:23 | disposition home or self-care (01) | DRG 392 ==
LOC: ED 08:44 → MED 12:09
PROVIDERS: ADMIT Internal Medicine; ATTEND Internal Medicine
DX: K52.9 Noninfective gastroenteritis and colitis, unspecified (principal); I47.2 Ventricular tachycardia; I48.91 Unspecified atrial fibrillation; I50.9 Heart failure, unspecified; I11.0 Hypertensive heart disease with heart failure; I25.5 Ischemic cardiomyopathy; E83.42 Hypomagnesemia; I25.10 Atherosclerotic heart disease of native coronary artery without angina pectoris; E78.5 Hyperlipidemia, unspecified; Z66 Do not resuscitate; R05 Cough; R06.02 Shortness of breath; I25.2 Old myocardial infarction; Z95.0 Presence of cardiac pacemaker; Z87.891 Personal history of nicotine dependence; Z79.01 Long term (current) use of anticoagulants; Z87.19 Personal history of other diseases of the digestive system; Z79.82 Long term (current) use of aspirin; Z79.899 Other long term (current) drug therapy; Z88.8 Allergy status to other drugs, medicaments and biological substances; Z82.49 Family history of ischemic heart disease and other diseases of the circulatory system; Z82.3 Family history of stroke; Z80.0 Family history of malignant neoplasm of digestive organs
CPT/HCPCS: 36415; 71045; 74177; 80048; 80053; 80076; 81003; 83605; 83690; 83735; 83880; 84484; 85025; 85060; 85379; 85610; 85730; 86140; 87040; 87493; 87641; 93005; 94640; 99284; A9270-GY; J2270; J3475; Q9967

== ENCOUNTER 2018-11-09 08:46 | Emergency (ER) | payer MEDICARE ==
[2018-11-09 09:10] VITALS: BP 119/71
--- OUTSIDE RECORDS SUMMARY | 2018-11-09 09:11 | XMS REPORT | Continuity of Care Document ---
:1945 External Reference #:[id number] Author Name Lulu Turpin M.D. Address [address] [facility] [place] [address] Care Team Providers Name Role Phone Jesus Manuel Ga MD Care Team Information [employer] Administrative Assistant Unavailable Jesus Manuel Ga MD Primary Care Physician Unavailable Payers Date Identification Numbers Payment Provider Subscriber Effective: 2009 Policy Number: [id number] Medicare [place] PayID: [id number] [address] [place] [id number] Advance Directives Description No Information Available Problems Active Problems Provider Date Mixed hyperlipidemia Jesus Manuel Ga M.D. Onset: 05/08/2009 Benign essential hypertension Jesus Manuel Ga M.D. Onset: 05/08/2009 Coronary arteriosclerosis Jesus Manuel Ga M.D. Onset: 05/08/2009 Tachycardia Jesus Manuel Ga M.D. Onset: 05/08/2009 Respiratory symptom Jesus Manuel Ga M.D. Onset: 10/20/2011 Henoch-Schonlein purpura Jesus Manuel Ga M.D. Onset: 10/17/2013 Seborrheic dermatitis Lulu Turpin M.D. Onset: 05/16/2014 Impacted cerumen Lulu Turpin M.D. Onset: 05/16/2014 Cardiomyopathy Jesus Manuel Ga M.D. Onset: 02/27/2015 Note: ischemic EF 20% Paroxysmal supraventricular tachycardia Jesus Manuel Ga M.D. Onset: 2014 Long-term current use of anticoagulant Jesus Manuel Ga M.D. Onset: 2018 Aneurysm of artery of lower extremity Jesus Manuel Ga M.D. Onset: 10/22/2016 Chronic ischemic heart disease Angie Sultana M.D. Onset: 09/26/2016 Family History Date Family Member(s) Observation Comments Father Heart Disease Mother Emphysema First Sister Cerebrovascular Accident (CVA) Social History Type Date Description Comments Sex Unknown Marital Status Patient is Living Situation Patient lives alone Tobacco Use Start: Unknown End: Former Cigarette Smoker ETOH Use Denies alcohol use Tobacco Use Start: Unknown End: Patient is a former smoker Unknown Exercise Type/Frequency walks about 4 miles a day Current Allergies, Adverse Reactions, Alerts Active Allergies Reaction Severity Comments Date Lisinopril rash 08/17/2013 Losartan rash 10/01/2013 Niaspan flushing, sweating 02/27/2014 Inactive Allergies NKDA 01/21/2011 Medications Active Medications SIG Qnty Indications Ordering Provider Date Potassium Chloride Take 1 Tablet By 90tabs Jesus Manuel Ga, 09/06/2018 [facility] Mouth Once A Day M.D. 20Meq Tablets ER Warfarin Sodium Take 1 Tablet By 90tabs Z79.01 Jesus Manuel Ga, 10/09/2014 2.5mg Mouth Every Day M.D. Tablets Or as Directed I82.91 Lotrisone apply small amount 15gm L21.8 Lulu Turpin, 05/16/2014 1-0.05% Cream twice daily to both M.D. ear lobes as necessary Fenofibrate Take 1 Tablet By 90tabs E78.2 Jesus Manuel Ga, 01/17/2014 145mg Mouth Every Day M.D. Tablets Sotalol HCL Take One-Half 90tabs Jesus Manuel Ga, 09/09/2012 80mg Tablet By Mouth M.D. Tablets Twice A Day Klor-Con M Take 1 Tablet By 90tabs Jesus Manuel Ga, 11/20/2011 20ER Tablet Mouth Once A Day M.D. Aspirin 1 po qd Family Medicine 05/08/2009 81mg Tablets [facility] Simvastatin Take 1 And / 135tabs E78.1 Jesus Manuel Ga, 05/08/2009 40mg Tablets By Mouth M.D. Tablets Every Day Furosemide Take One-Half 45tabs Jesus Manuel Ga, 40mg Tablets Tablet By Mouth M.D. Every Day History Medications Zostavax May receive the Z23 Jesus Manuel Ga, 10/22/2016 - 13156Cje/0.65ML zostavax M.D. 10/23/2016 Suspension Rec Azithromycin 2 by mouth today. 6tabs J06.9 Lulu Simmons 05/06/2016 - 250mg 1 by mouth daily Vale Turpin 07/08/2016 Tablets x 4 Griseofulvin 3 by mouth once a 90tabs 782.1 Jesus Manuel Ga, 02/27/2015 - Ultramicrosize day x 2-4 weeks M.D. 02/27/2015 125mg for rash Tablets Lovenox 80 mg sc every 12 10units Gregory Bull MD 11/04/2014 - 80mg/0.8ML hours 11/27/2014 Solution Enoxaparin Sodium prefilled syringe 10units Gregory Bull 11/04/2014 - M.DMikala 11/27/2014 80mg/0.8ML Solution Biaxin 1 by mouth twice 20tabs Lulu Simmons 06/08/2014 - 500mg Tablets a day x10 days Vale Turpin 11/27/2014 called in to pharmacy. Prednisone 3 daily for 3 18tabs 782.1 Jesus Manuel Ga, 06/02/2014 - 20mg Tablets days then 2 daily M.D. 06/09/2014 for 3 days then 1 daily for 2 days then 1/2 daily for 2 days Azithromycin 2 by mouth today 6tabs 786.2 Jesus Manuel Ga, 06/02/2014 - 250mg then 1 by mouth M.D. 06/07/2014 Tablets every day x 4 days Prednisone 3 daily for 3 18tabs 782.1 Jesus Manuel Ga, 10/01/2013 - 20mg Tablets days then 2 daily M.D. 01/12/2014 for 3 days then 1 daily for 2 days then 1/2 daily for 2 days Ranitidine HCL 1 po qd while on 7caps 782.1 Jesus Manuel Ga, 10/01/2013 - 150mg prednisone M.D. 03/14/2014 Capsules Levocetirizine 1 po qd 7tabs 782.1 Jesus Manuel Ga, 10/01/2013 - Dihydrochloride M.D. 01/12/2014 5mg Tablets Losartan Potassium take 1 tablet by 7tabs Jesus Manuel Ga, 08/17/2013 - 50mg mouth every M.D. 10/01/2013 Tablets evening Coumadin 1 po once a day 30tabs Jesus Manuel Ga, 07/19/2013 - 5mg Tablets or as directed by Vale 11/27/2014 Lisinopril take one tablet 30tabs Jesus Manuel Ga, 06/28/2013 - 2.5mg Tablets by mouth every M.D. 08/17/2013 evening Cephalexin one tab po tid 30tabs Boa Perez, 04/30/2011 - 500mg Tablets for ten days M.D. 04/30/2011 Lotrisone apply to 60grams Bao Perez, 04/30/2011 - 1-0.05% Cream affected area M.D. 04/30/2011 twice a day for up to two weeks Zithromax 2 po qd today , 1tabs 465.9 Bao Perez, 04/30/2011 - 250mg Tablets then 1 po qd M.D. 05/10/2011 times 4 Fenofibrate Take 1 tablet by 90tabs 272.2 Jesus Manuel Ga, 10/15/2009 - 54mg Tablets mouth every day M.D. 01/17/2014 Folgard Rx 1 qd 30tabs Jesus Manuel Ga, 08/30/2009 - 2.2-25-1mg M.D. 05/20/2010 Tablets Azithromycin 2 po today then 1 6tabs 461.0 Jesus Manuel Ga, 08/09/2009 - 250mg po qd x 4 days M.D. 04/27/2010 Tablets Debrox 10 drops both 1units 380.4 Lulu Simmons 08/09/2009 - 6.5% Solution ears daily for Vale Turpin 05/20/2010 one week. Void Jesus Manuel Ga, 07/18/2009 - M.D. 07/19/2009 Altace 1 po qd 90caps Jesus Manuel Ga, 05/08/2009 - 1.25mg Capsules M.D. 06/28/2013 [facility] 05/08/2009 [facility] 07/16/2009 [id number] [place] Tablets Sotalol HCL 1/2 po bid 180tabs Jesus Manuel Ga, 05/08/2009 - 80mg Tablets M.D. 09/09/2012 Potassium Chloride CR po qd 90caps Jesus Manuel Ga, 05/08/2009 - M.D. 11/20/2011 20Meq Capsules ER Benzonatate 1 po q6-8 hrs prn 100caps Jesus Manuel Ga, 05/08/2009 - 100mg cough M.D. 2012 Capsules Niaspan 1 po qhs 90tabs Jesus Manuel Ga, 05/08/2009 - 1000mg Tablets ER M.D. 02/27/2014 Zetia 1 po qd 30tabs [facility] 05/08/2009 - 10mg Tablets [facility] 07/16/2009 [place] Furosemide take 1 tablet by 90tabs Jesus Manuel Ga, 05/08/2009 - 40mg Tablets mouth once daily M.D. 03/14/2014 Lovenox 80 mg sc every 12 10units Unknown - 80mg/0.8ML hours 06/10/2013 Solution Coumadin 1 po once a day 100tabs Jesus Manuel Ga, - 5mg Tablets or as directed by Vale 07/19/2013 Immunizations CPT Code Status Date Vaccine Lot # [id number] Given 04/09/2018 High-Dose, Influenza Virus Vacccine-fluzone 65 and [id number] older 13706 Given 03/19/2017 High-Dose, Influenza Virus Vacccine-fluzone 65 and [id number] older 70520 Given 10/27/2016 Zostivax 01472 Given 10/22/2016 Tdap Tetanus, W Pertussis [id number] 39511 Given 02/28/2016 High-Dose, Influenza Virus Vacccine-fluzone 65 and [id number] older 62182 Given 02/27/2015 Pneumococcal Conjugate Vacc-13 [id number] 59740 Given 02/27/2015 High-Dose, Influenza Virus Vacccine-fluzone 65 and [id number] older Q2038 Given 03/14/2014 Split Influenza Medicare: Fluzone 48218 Given 03/14/2014 DO Not Use Split Influenza Virus Vaccine [id number] Q2038 Given 04/02/2012 Split Influenza Medicare: Fluzone 78578 Given 04/02/2012 DO Not Use Split Influenza Virus Vaccine [id number] 60370 Given 09/18/2010 Pneumococcal Immunization [id number] Given 04/10/2010 DO Not Use Split Influenza Virus Vaccine Vital Signs Date Vital Result Comment 10/22/2018 8:15am BP Systolic 102 mmHg BP Diastolic 68 mmHg Heart Rate 56 /min Body Temperature 97.9 F Height 66 inches 5'6" Weight 191.00 lb BMI (Body Mass Index) 30.8 kg/m2 08/19/2018 8:15am BP Systolic 110 mmHg BP Diastolic 72 mmHg Heart Rate 72 /min Body Temperature 97.9 F Respiratory Rate 16 /min Height 66 inches 5'6" Weight 188.00 lb BMI (Body Mass Index) 30.3 kg/m2 08/02/2018 10:39am BP Systolic 102 mmHg BP Diastolic 64 mmHg Heart Rate 64 /min Body Temperature 98.2 F Respiratory Rate 16 /min O2 % BldC Oximetry 94 % Height 66 inches 5'6" Weight 188.00 lb BMI (Body Mass Index) 30.3 kg/m2 05/12/2018 8:38am BP Systolic 124 mmHg BP Diastolic 80 mmHg Heart Rate 68 /min Body Temperature 97.7 F Respiratory Rate 16 /min Height 66 inches 5'6" Weight 191.00 lb BMI (Body Mass Index) 30.8 kg/m2 04/09/2018 10:06am BP Systolic 110 mmHg BP Diastolic 72 mmHg Heart Rate 72 /min Body Temperature 98.0 F Respiratory Rate 16 /min Weight 193.00 lb 12/24/2017 4:27pm BP Systolic 120 mmHg BP Diastolic 76 mmHg Heart Rate 68 /min Body Temperature 98.1 F Respiratory Rate 18 /min Weight 182.00 lb 10/16/2017 11:28am BP Systolic 90 mmHg BP Diastolic 50 mmHg BP Systolic Recheck 120 mmHg BP Diastolic Recheck 80 mmHg Heart Rate 76 /min Body Temperature 97.7 F Respiratory Rate 17 /min Weight 183.00 lb 09/04/2017 12:13pm BP Systolic 120 mmHg BP Diastolic 72 mmHg Heart Rate 68 /min Body Temperature 98.0 F Respiratory Rate 18 /min Weight 188.00 lb 08/06/2017 11:28am BP Systolic 118 mmHg BP Diastolic 80 mmHg Heart Rate 68 /min Body Temperature 97.9 F Respiratory Rate 18 /min Height 66 inches 5'6" Weight 183.00 lb BMI (Body Mass Index) 29.5 kg/m2 06/25/2017 8:27am BP Systolic 122 mmHg BP Diastolic 72 mmHg Heart Rate 68 /min Body Temperature 97.8 F Respiratory Rate 18 /min Height 66 inches 5'6" Weight 184.00 lb BMI (Body Mass Index) 29.7 kg/m2 05/21/2017 8:30am BP Systolic 104 mmHg BP Diastolic 60 mmHg Heart Rate 60 /min Body Temperature 98.8 F Respiratory Rate 16 /min Height 66 inches 5'6" Weight 182.50 lb BMI (Body Mass Index) 29.5 kg/m2 03/19/2017 8:17am BP Systolic 110 mmHg BP Diastolic 70 mmHg Heart Rate 64 /min Body Temperature 98.0 F Respiratory Rate 18 /min Height 66 inches 5'6" Weight 178.00 lb BMI (Body Mass Index) 28.7 kg/m2 01/13/2017 3:11pm BP Systolic 120 mmHg BP Diastolic 80 mmHg Heart Rate 72 /min Body Temperature 98.1 F Respiratory Rate 18 /min Height 66 inches 5'6" Weight 178.00 lb BMI (Body Mass Index) 28.7 kg/m2 11/11/2016 4:12pm BP Systolic 120 mmHg BP Diastolic 70 mmHg Heart Rate 60 /min Body Temperature 98.1 F Respiratory Rate 18 /min Height 66 inches 5'6" Weight 179.00 lb BMI (Body Mass Index) 28.9 kg/m2 10/22/2016 1:00pm BP Systolic 124 mmHg BP Diastolic 74 mmHg Heart Rate 68 /min Body Temperature 98.4 F Respiratory Rate 18 /min Height 66 inches 5'6" Weight 181.00 lb BMI (Body Mass Index) 29.2 kg/m2 09/26/2016 11:00am BP Systolic 120 mmHg BP Diastolic 70 mmHg Heart Rate 78 /min Body Temperature 97.9 F Respiratory Rate 17 /min Weight 184.00 lb 09/09/2016 4:04pm BP Systolic 120 mmHg BP Diastolic 80 mmHg Heart Rate 68 /min Body Temperature 98.4 F Respiratory Rate 18 /min Weight 192.00 lb 07/08/2016 9:19am BP Systolic 110 mmHg BP Diastolic 80 mmHg Heart Rate 68 /min Body Temperature 97.9 F Respiratory Rate 18 /min Weight 194.00 lb 05/06/2016 3:50pm BP Systolic 120 mmHg BP Diastolic 70 mmHg Heart Rate 76 /min Body Temperature 98.4 F Respiratory Rate 18 /min Weight 192.00 lb 02/28/2016 2:23pm BP Systolic 120 mmHg BP Diastolic 80 mmHg Heart Rate 68 /min Body Temperature 98.0 F Respiratory Rate 18 /min Weight 183.50 lb 12/25/2015 4:00pm BP Systolic 110 mmHg BP Diastolic 74 mmHg Heart Rate 80 /min Body Temperature 98.0 F Respiratory Rate 18 /min Height 66.5 inches 5'6.50" Weight 184.00 lb BMI (Body Mass Index) 29.3 kg/m2 10/23/2015 9:37am BP Systolic 120 mmHg BP Diastolic 80 mmHg Heart Rate 76 /min Body Temperature 98.0 F Respiratory Rate 18 /min Height 66.5 inches 5'6.50" Weight 190.00 lb BMI (Body Mass Index) 30.2 kg/m2 08/21/2015 3:30pm BP Systolic 110 mmHg BP Diastolic 80 mmHg Heart Rate 80 /min Body Temperature 98.1 F Respiratory Rate 18 /min Height 66.5 inches 5'6.50" Weight 191.00 lb BMI (Body Mass Index) 30.4 kg/m2 06/12/2015 9:28am BP Systolic 112 mmHg BP Diastolic 72 mmHg Heart Rate 68 /min Body Temperature 97.7 F Height 66.5 inches 5'6.50" Weight 183.00 lb BMI (Body Mass Index) 29.1 kg/m2 03/27/2015 9:21am BP Systolic 120 mmHg BP Diastolic 80 mmHg Heart Rate 76 /min Body Temperature 98.5 F Respiratory Rate 16 /min Height 66.5 inches 5'6.50" Weight 182.00 lb BMI (Body Mass Index) 28.9 kg/m2 02/27/2015 9:10am BP Systolic 110 mmHg BP Diastolic 60 mmHg Heart Rate 64 /min Body Temperature 98.1 F Respiratory Rate 16 /min Height 66.5 inches 5'6.50" Weight 181.00 lb BMI (Body Mass Index) 28.8 kg/m2 01/30/2015 9:37am BP Systolic 110 mmHg BP Diastolic 70 mmHg Heart Rate 76 /min Body Temperature 98.0 F Respiratory Rate 18 /min Height 66.5 inches 5'6.50" Weight 180.00 lb BMI (Body Mass Index) 28.6 kg/m2 11/28/2014 3:18pm BP Systolic 100 mmHg BP Diastolic 60 mmHg Heart Rate 72 /min Body Temperature 97.0 F Respiratory Rate 12 /min Height 66.5 inches 5'6.50" Weight 182.50 lb BMI (Body Mass Index) 29.0 kg/m2 09/26/2014 2:49pm BP Systolic 120 mmHg BP Diastolic 80 mmHg Heart Rate 72 /min Body Temperature 98.2 F Respiratory Rate 18 /min Height 66.5 inches 5'6.50" Weight 187.00 lb BMI (Body Mass Index) 29.7 kg/m2 07/25/2014 2:50pm BP Systolic 122 mmHg BP Diastolic 72 mmHg Heart Rate 60 /min Body Temperature 96.2 F Respiratory Rate 18 /min Height 66.5 inches 5'6.50" Weight 183.12 lb BMI (Body Mass Index) 29.1 kg/m2 06/02/2014 8:00am BP Systolic 110 mmHg BP Diastolic 70 mmHg Heart Rate 74 /min Body Temperature 97.8 F Respiratory Rate 16 /min O2 % BldC Oximetry 98 % Height 66.5 inches 5'6.50" Weight 185.00 lb BMI (Body Mass Index) 29.4 kg/m2 05/16/2014 9:10am BP Systolic 110 mmHg BP Diastolic 70 mmHg Heart Rate 80 /min Body Temperature 98.9 F Respiratory Rate 18 /min Height 66.5 inches 5'6.50" Weight 188.00 lb BMI (Body Mass Index) 29.9 kg/m2 03/14/2014 2:25pm BP Systolic 102 mmHg BP Diastolic 72 mmHg Heart Rate 68 /min Body Temperature 97.3 F Respiratory Rate 16 /min Height 66.5 inches 5'6.50" Weight 185.00 lb BMI (Body Mass Index) 29.4 kg/m2 02/27/2014 9:04am BP Systolic 110 mmHg BP Diastolic 70 mmHg Heart Rate 64 /min Body Temperature 96.4 F Respiratory Rate 16 /min Height 66.5 inches 5'6.50" Weight 185.00 lb BMI (Body Mass Index) 29.4 kg/m2 01/12/2014 4:18pm BP Systolic 118 mmHg BP Diastolic 70 mmHg Heart Rate 60 /min Body Temperature 97.3 F Respiratory Rate 18 /min Height 66.5 inches 5'6.50" Weight 179.00 lb BMI (Body Mass Index) 28.5 kg/m2 10/17/2013 8:32am BP Systolic 120 mmHg BP Diastolic 74 mmHg Heart Rate 64 /min Body Temperature 95.9 F Respiratory Rate 16 /min Height 66.5 inches 5'6.50" Weight 188.00 lb BMI (Body Mass Index) 29.9 kg/m2 10/01/2013 9:12am BP Systolic 124 mmHg BP Diastolic 80 mmHg Heart Rate 66 /min Body Temperature 97.2 F Respiratory Rate 18 /min O2 % BldC Oximetry 97 % Height 66.5 inches 5'6.50" Weight 190.00 lb BMI (Body Mass Index) 30.2 kg/m2 09/02/2013 11:06am BP Systolic 108 mmHg BP Diastolic 72 mmHg Heart Rate 72 /min Body Temperature 95.6 F Height 66.5 inches 5'6.50" Weight 188.38 lb BMI (Body Mass Index) 29.9 kg/m2 06/10/2013 3:26pm BP Systolic 102 mmHg BP Diastolic 62 mmHg Heart Rate 64 /min Body Temperature 97.1 F Respiratory Rate 16 /min Height 66.5 inches 5'6.50" Weight 183.00 lb BMI (Body Mass Index) 29.1 kg/m2 03/19/2013 9:03am BP Systolic 120 mmHg BP Diastolic 80 mmHg Heart Rate 72 /min Body Temperature 98.1 F Respiratory Rate 16 /min Height 66.5 inches 5'6.50" Weight 171.00 lb BMI (Body Mass Index) 27.2 kg/m2 03/03/2013 1:49pm BP Systolic 107 mmHg BP Diastolic 60 mmHg Heart Rate 68 /min Body Temperature 97.7 F Respiratory Rate 18 /min Height 66.5 inches 5'6.50" Weight 179.00 lb BMI (Body Mass Index) 28.5 kg/m2 01/18/2013 8:01am BP Systolic 114 mmHg BP Diastolic 78 mmHg Heart Rate 66 /min Body Temperature 96.4 F Respiratory Rate 16 /min Height 66.5 inches 5'6.50" Weight 176.00 lb BMI (Body Mass Index) 28.0 kg/m2 11/19/2012 4:33pm BP Systolic 112 mmHg BP Diastolic 70 mmHg Heart Rate 62 /min Body Temperature 96.9 F Respiratory Rate 18 /min Height 66.5 inches 5'6.50" Weight 173.00 lb BMI (Body Mass Index) 27.5 kg/m2 08/06/2012 3:26pm BP Systolic 120 mmHg BP Diastolic 80 mmHg Heart Rate 78 /min Body Temperature 98.0 F Height 66.5 inches 5'6.50" Weight 172.00 lb BMI (Body Mass Index) 27.3 kg/m2 2012 8:00am BP Systolic 110 mmHg BP Diastolic 66 mmHg Heart Rate 60 /min Body Temperature 96.0 F Respiratory Rate 12 /min Height 66.5 inches 5'6.50" Weight 172.00 lb BMI (Body Mass Index) 27.3 kg/m2 04/02/2012 3:27pm BP Systolic 98 mmHg BP Diastolic 60 mmHg Heart Rate 60 /min Body Temperature 98.7 F Height 66.5 inches 5'6.50" Weight 168.00 lb BMI (Body Mass Index) 26.7 kg/m2 02/12/2012 10:21am BP Systolic 110 mmHg BP Diastolic 80 mmHg Heart Rate 72 /min Body Temperature 98.2 F Height 66.5 inches 5'6.50" Weight 170.00 lb BMI (Body Mass Index) 27.0 kg/m2 01/19/2012 8:01am BP Systolic 120 mmHg BP Diastolic 74 mmHg Heart Rate 60 /min Body Temperature 96.0 F Respiratory Rate 12 /min Height 66.5 inches 5'6.50" Weight 172.00 lb BMI (Body Mass Index) 27.3 kg/m2 12/25/2011 9:32am BP Systolic 120 mmHg BP Diastolic 70 mmHg Heart Rate 76 /min Body Temperature 98.4 F Height 66.5 inches 5'6.50" Weight 173.00 lb BMI (Body Mass Index) 27.5 kg/m2 10/20/2011 10:44am BP Systolic 120 mmHg BP Diastolic 76 mmHg Heart Rate 60 /min Body Temperature 96.1 F Respiratory Rate 16 /min O2 % BldC Oximetry 95 % Height 66.5 inches 5'6.50" Weight 180.00 lb BMI (Body Mass Index) 28.6 kg/m2 07/09/2011 8:05am BP Systolic 110 mmHg BP Diastolic 68 mmHg Heart Rate 64 /min Body Temperature 96.5 F Respiratory Rate 16 /min Height 66.5 inches 5'6.50" Weight 180.00 lb BMI (Body Mass Index) 28.6 kg/m2 04/30/2011 2:11pm BP Systolic 130 mmHg BP Diastolic 70 mmHg Heart Rate 62 /min Body Temperature 97.5 F Respiratory Rate 22 /min O2 % BldC Oximetry 94 % Height 66.5 inches 5'6.50" Weight 178.00 lb BMI (Body Mass Index) 28.3 kg/m2 01/21/2011 7:59am BP Systolic 112 mmHg BP Diastolic 70 mmHg Heart Rate 56 /min Body Temperature 96.7 F Respiratory Rate 16 /min Height 66.5 inches 5'6.50" Weight 174.00 lb BMI (Body Mass Index) 27.7 kg/m2 09/18/2010 7:59am BP Systolic 100 mmHg BP Diastolic 70 mmHg Heart Rate 56 /min Body Temperature 97.2 F Respiratory Rate 16 /min Height 66.5 inches 5'6.50" Weight 182.00 lb BMI (Body Mass Index) 28.9 kg/m2 05/20/2010 7:59am BP Systolic 112 mmHg BP Diastolic 62 mmHg Heart Rate 60 /min Body Temperature 97.0 F Respiratory Rate 20 /min Height 66.5 inches 5'6.50" Weight 180.00 lb BMI (Body Mass Index) 28.6 kg/m2 01/15/2010 7:59am BP Systolic 116 mmHg BP Diastolic 66 mmHg Heart Rate 72 /min Body Temperature 97.6 F Respiratory Rate 14 /min Height 66.5 inches 5'6.50" Weight 178.00 lb BMI (Body Mass Index) 28.3 kg/m2 01/11/2010 11:48am BP Systolic 126 mmHg BP Diastolic 80 mmHg Heart Rate 64 /min Body Temperature 96.8 F Height 66.5 inches 5'6.50" Weight 176.00 lb BMI (Body Mass Index) 28.0 kg/m2 10/15/2009 7:58am BP Systolic 120 mmHg BP Diastolic 70 mmHg Heart Rate 64 /min Body Temperature 97.3 F Respiratory Rate 12 /min Height 66.5 inches 5'6.50" Weight 190.00 lb BMI (Body Mass Index) 30.2 kg/m2 08/09/2009 10:32am BP Systolic 140 mmHg BP Diastolic 80 mmHg Heart Rate 72 /min Body Temperature 97.0 F Height 66.5 inches 5'6.50" Weight 192.00 lb BMI (Body Mass Index) 30.5 kg/m2 07/16/2009 2:53pm BP Systolic 120 mmHg BP Diastolic 80 mmHg Heart Rate 80 /min Body Temperature 97.4 F Respiratory Rate 16 /min Height 66.5 inches 5'6.50" Weight 192.00 lb BMI (Body Mass Index) 30.5 kg/m2 05/08/2009 9:30am BP Systolic 122 mmHg BP Diastolic 84 mmHg Heart Rate 56 /min Body Temperature 96.7 F Respiratory Rate 16 /min Height 66.5 inches 5'6.50" Weight 183.00 lb BMI (Body Mass Index) 29.1 kg/m2 Results Test Date Facility Test Result H/L Range Note Laboratory test 10/01/2018 [facility] ([facility]) 1.9 Low 2.0-3.0 finding (607)- - Laboratory test 08/30/2018 [facility] ([facility]) 2.3 2.0-3.0 finding (607)- - Laboratory test 08/02/2018 [facility] Magnesium, 2.2 mEq/L High 1.2-2.1 1 finding Serum Laboratory test 08/02/2018 [facility] ([facility]) 2.3 2.0-3.0 finding (607)- - Urinalysis Profile 07/19/2018 [facility] Urine Color Yellow Urine Appearance Cloudy Urine Specific [place] 1.030 N 1.010-1.030 Urine pH 5.0 N 5-9 Urine Urobilinogen Negative Negative Urine Ketones Trace Abnormal Negative Urine Protein Negative Negative Urine Leukocytes Negative Negative Urine Blood Negative Negative * * Abnormal Negative 2 Urine Nitrite Negative Negative Urine Bilirubin Negative Negative Urine Glucose Negative Negative Laboratory test finding 07/19/2018 [facility] Pathologist Review (SEE NOTE) 3 C Difficile PCR SEE RESULT BELOW 4 Blood Culture SEE RESULT BELOW 5 Manual Differential 07/19/2018 [facility] Immature Granulocytes 4 % N 0-9 Neutrophil % 48 % Band % 3 % N 0-8 Lymphocytes % 14 % Monocytes % 14 % Eosinophils % 8 % Basophil % 1 % Variant Lymph % 11 % High 0-6 Metamyelocytes % 1 % N 0-2 RBC Morphology Normal Normal Abs Neutrophils 4.3 10^3/uL N 1.5-7.7 Abs Lymphocytes 2.1 10^3/uL N 1.0-4.8 Abs Monocytes 1.2 10^3/uL High 0-0.8 Abs Eosinophils 0.7 10^3/uL High 0-0.6 Abs Basophils 0.1 10^3/uL N 0-0.2 CBC Auto Diff 07/19/2018 [facility] White Blood Count 8.3 10^3/uL N 3.5-10.8 Red Blood Count 5.18 10^6/uL N 4.00-5.40 Hemoglobin 15.8 g/dL N 14.0-18.0 Hematocrit 47 % N 42-52 Mean Corpuscular Volume 91 fL N 80-94 Mean Corpuscular Hemoglobin 31 pg N 27-31 Mean Corpuscular HGB Conc 34 g/dL N 31-36 Red Cell Distribution Width 15 % N 10.5-15 Platelet Count 192 10^3/uL N 150-450 Mean Platelet Volume 9.6 fL N 7.4-10.4 Abs Neutrophils 4.3 10^3/uL N 1.5-7.7 Abs Lymphocytes 1.8 10^3/uL N 1.0-4.8 Abs Monocytes 1.8 10^3/uL High 0-0.8 Abs Eosinophils 0.4 10^3/uL N 0-0.6 Abs Basophils 0.1 10^3/uL N 0-0.2 Laboratory test finding 07/19/2018 [facility] Magnesium 1.6 mg/dL Low 1.9-2.7 Lipase 10 U/L Low 11.0-82.0 C Reactive Protein 85.04 mg/L High <8.01 Troponin I 0.03 ng/mL <0.04 6 Lactic Acid 1.2 mmol/L N 0.5-2.0 7 Comp Metabolic Panel 07/19/2018 [facility] Sodium 134 mmol/L Low 135-145 Potassium 3.8 mmol/L N 3.5-5.0 Chloride 105 mmol/L N 101-111 Co2 Carbon Dioxide 19 mmol/L Low 22-32 Anion Gap 10 mmol/L N 2-11 Glucose 119 mg/dL High 70-100 Blood Urea Nitrogen 24 mg/dL N 6-24 Creatinine 1.12 mg/dL N 0.67-1.17 BUN/Creatinine Ratio 21.4 High 8-20 Calcium 9.3 mg/dL N 8.6-10.3 Total Protein 7.3 g/dL N 6.4-8.9 Albumin 4.1 g/dL N 3.2-5.2 Globulin 3.2 g/dL N 2-4 Albumin/Globulin Ratio 1.3 N 1-3 Total Bilirubin 0.50 mg/dL N 0.2-1.0 Alkaline Phosphatase 23 U/L Low 34-104 Alt 68 U/L High 7-52 Ast 53 U/L High 13-39 Egfr Non- 64.3 >60 Egfr 77.8 >60 8 Laboratory test 07/19/2018 [facility] Partial Thrombo 39.2 seconds High 26.0- 36.3 finding Time PTT D Dimer Quantitative < 200 ng/mL N Less Than 230 9 B-Type Natriuretic Peptide BNP 201 pg/mL High <=100 Inr/Protime 07/19/2018 [facility] Inr 1.91 High 0.77-1.02 Laboratory test 07/19/2018 [facility] Rapid Influenza A SEE RESULT BELOW 10 finding & B Antigen Rapid Influenza A & 07/19/2018 [facility] Influenza A NEGATIVE Negative 11 B Molecular Molecular Influenza B Molecular NEGATIVE Negative Laboratory test 06/30/2018 [facility] ([facility]) 2.2 2.0-3.0 finding (607)- - Laboratory test 05/26/2018 [facility] ([facility]) 1.9 Low 2.0-3.0 finding (607)- - Laboratory test 05/24/2018 [facility] Negative Not Applicable [address] [place] [address] [phone] Laboratory test 05/12/2018 [facility] Cancelled - Not Applicable [address] [place] [address] NOTE> [phone] Laboratory test 05/12/2018 Morales Corin(a) LDL, Direct 127 mg/dL 0- 130 finding CBC Electronic 05/12/2018 Morales Corin(a) WBC 8.3 x10^3/UL 4.0-10.0 Fma RBC 5.17 x10^6/UL 3.93-6.00 HGB 15.7 g/dL 12.0-17.0 HCT 47 % 35-50 MCV 90.9 fL 80.0-95.0 MCH 30.4 pg 25.6-32.2 MCHC 33.4 g/dL 32.2-36.0 RDW-CV 15.3 % High 11.6-14.4 PLT 242 x10^3/UL 163-400 MPV 11.2 fL 9.4-12.4 Sheryl# 3.38 x10^3/UL 1.56-6.13 Lymph# 3.11 x10^3/UL 1.18-3.74 Donley# 0.89 x10^3/UL High 0.24-0.82 Eos # 0.8 x10^3/UL High 0.0-0.5 Baso # 0.13 x10^3/UL High 0.01-0.08 Sheryl% 40.8 % 34.0-70.0 Lymph % 37.5 % 20.0-52.0 Donley% 10.7 % 5.0-12.0 Eos% 9.0 % High 0.7-7.0 Baso% 1.6 % High 0.1-1.2 Laboratory test 05/12/2018 Andrew Corin(a) PSA 0.3 ng/mL 0.0-4.0 finding Lipid Profile 05/12/2018 Morales Corin(fma) Cholesterol 209 mg/dL High 120-200 Triglycerides 375 mg/dL High 30-200 HDL Cholesterol 30 mg/dL 30-70 LDL (Calculated) 104 CALC 0-129 VLDL Cholesterol 75 mg/dL High 0-50 HDL Risk Factor 7.0 CALC High 0.0-4.4 Comprehensive Metabolic 05/12/2018 Morales Corin(fma) Sodium 138 mEq/L 134-149 Prof Potassium 4.0 mEq/L 3.6-5.5 Chloride 103 mEq/L 94-112 Carbon Dioxide 30 mEq/L 21-32 Glucose 78 mg/dL 70-105 BUN 21 mg/dL 6-26 Creatinine 1.0 mg/dL 0.6-1.4 BUN/Creat Ratio 21.0 CALC 8.0-36.0 Calcium 9.7 mg/dL 8.6-10.2 Total Protein 7.8 g/dL 6.4-8.3 Albumin 4.9 g/dL 3.8-5.5 Globulin 2.9 g/dL 2.0-4.8 A/G Ratio 1.7 CALC 0.6-2.3 Alk. Phosphatase 24 U/L 22-95 Alt (SGPT) 57 U/L High 7-35 Ast (Sgot) 44 U/L High 5-34 Total Bilirubin 0.5 mg/dL 0.2-1.3 GFR Non- >60 ml/min/1.73m^ >=60 GFR >60 ml/min/1.73m^ >=60 Laboratory test 04/26/2018 [facility] (Fma) 2.3 2.0-3.0 finding (607)- - Laboratory test 03/26/2018 [facility] (Fma) 2.1 2.0-3.0 finding (607)- - Laboratory test 02/24/2018 [facility] (Fma) 1.9 Low 2-3 finding (607)- - Laboratory test 01/22/2018 [facility] (Fma) 1.8 Low 2.0-3.0 finding (607)- - Laboratory test 01/07/2018 [facility] (Fma) 2.3 2.0-3.0 finding (607)- - Laboratory test 12/28/2017 [facility] (Fma) 2.8 2-3 finding (607)- - Laboratory test 12/17/2017 [facility] (Fma) 4.0 High 2.0-3.0 finding (607)- - Laboratory test 11/23/2017 [facility] (Fma) 3.9 High 2.0-3.0 finding (607)- - Laboratory test 10/23/2017 [facility] (Fma) 2.2 2-3 finding (607)- - Laboratory test 10/07/2017 [facility] (Fma) 3.1 High 2-3 finding (607)- - Laboratory test 09/07/2017 [facility] (Fma) 2.5 2-3 finding (607)- - Laboratory test 08/06/2017 [facility] (Fma) 2.6 2-3 finding (607)- - Laboratory test 07/10/2017 [facility] (Fma) 2.6 2-3 finding (607)- - Laboratory test 06/09/2017 [facility] (Fma) 2.4 2.0-3.0 finding (607)- - Laboratory test 05/07/2017 [facility] (Fma) 2.7 2-3 finding (607)- - Laboratory test 05/01/2017 [facility] Creatine 71 U/L N 10-223 finding Kinase(CK) B-Type Natriuretic Peptide BNP 158 pg/mL High 14 CBC Auto Diff 05/01/2017 [facility] White Blood Count 10.4 10^3/uL N 3.5-10.8 Red Blood Count 4.92 10^6/uL N 4.0-5.4 Hemoglobin 14.9 g/dL N 14.0-18.0 Hematocrit 45 % N 42-52 Mean Corpuscular Volume 91 fL N 80-94 Mean Corpuscular Hemoglobin 30 pg N 27-31 Mean Corpuscular HGB Conc 33 g/dL N 31-36 Red Cell Distribution Width 15 % N 10.5-15 Platelet Count 243 10^3/uL N 150-450 Mean Platelet Volume 10 um3 N 7.4-10.4 Abs Neutrophils 4.2 10^3/uL N 1.5-7.7 Abs Lymphocytes 3.7 10^3/uL N 1.0-4.8 Abs Monocytes 1.0 10^3/uL High 0-0.8 Abs Eosinophils 1.3 10^3/uL High 0-0.6 Abs Basophils 0.1 10^3/uL N 0-0.2 Abs Nucleated RBC 0.03 10^3/uL Granulocyte % 41.0 % N 38-83 Lymphocyte % 36.0 % N 25-47 Monocyte % 9.6 % High 1-9 Eosinophil % 12.2 % High 0-6 Basophil % 1.2 % N 0-2 Nucleated Red Blood Cells % 0.3 Inr/Protime 05/01/2017 [facility] Inr 2.11 High 0.89-1.11 Laboratory test 05/01/2017 [facility] Partial Thrombo 41.4 seconds High 26.0- 36.3 finding Time PTT Comp Metabolic Panel 05/01/2017 [facility] Sodium 136 mmol/L N 133-145 Chloride 103 mmol/L N 101-111 Co2 Carbon Dioxide 22 mmol/L N 22-32 Glucose 99 mg/dL N 70-100 Blood Urea Nitrogen 26 mg/dL High 6-24 Creatinine 1.51 mg/dL High 0.67-1.17 BUN/Creatinine Ratio 17.2 N 8-20 Calcium 9.8 mg/dL N 8.6-10.3 Total Protein 7.5 g/dL N 6.4-8.9 Albumin 4.3 g/dL N 3.2-5.2 Globulin 3.2 g/dL N 2-4 Albumin/Globulin Ratio 1.3 N 1-3 Total Bilirubin 0.40 mg/dL N 0.2-1.0 Alkaline Phosphatase 24 U/L Low 34-104 Alt 32 U/L N 7-52 Egfr Non- 45.7 >60 Egfr 58.7 >60 15 Potassium 4.0 mmol/L N 3.5-5.0 Anion Gap 11 mmol/L N 2-11 Ast 30 U/L N 13-39 Laboratory test finding 05/01/2017 [facility] Troponin I 0.02 ng/mL <0.04 Laboratory test finding 05/01/2017 [facility] Magnesium 2.0 mg/dL N 1.9-2.7 Troponin I 0.01 ng/mL <0.04 CKMB 05/01/2017 [facility] CKMB ng/mL 2.4 ng/mL N 0.6-6.3 Urinalysis Profile 05/01/2017 [facility] Urine Color Yellow Urine Appearance Clear Urine Specific [place] 1.014 N 1.010-1.030 Urine pH 6.0 N 5-9 Urine Urobilinogen Negative Negative Urine Ketones Negative Negative Urine Protein Negative Negative Urine Leukocytes Negative Negative Urine Blood Negative Negative * * Abnormal Negative 16 Urine Nitrite Negative Negative Urine Bilirubin Negative Negative Urine Glucose Negative Negative Laboratory test finding 05/01/2017 [facility] TSH (Thyroid Stim 2.16 mcIU/mL N 0.34-5.60 Horm) D Dimer Quantitative < 200 ng/mL N Less Than 230 17 Laboratory test 04/06/2017 [facility] Inr (Fma) 2.3 2.0-3.0 finding (607)- - Laboratory test 02/26/2017 [facility] Inr (Fma) 3.1 High 2.0-3.0 finding (607)- - Laboratory test 01/26/2017 [facility] Inr (Fma) 3.0 2.0-3.0 finding (607)- - Laboratory test 12/25/2016 [facility] Inr (Fma) 2.9 2.0-3.0 finding (607)- - Laboratory test 11/24/2016 [facility] Inr (Fma) 2.6 2.0-3.0 finding (607)- - Ict-Hemoccult 11/06/2016 [facility] Ict Hemoccult 10/25/16 ([facility])Fma Screeni (607)- - (1) neg Ict Hemoccult-(2) 10/27/16 neg Ict-Hemoccult (3) 10/28/16 neg Laboratory test 10/22/2016 [facility] HCV Antibody <0.1 0.0-0.9 18, 19 finding [id number] [facility] s/[place] [address] (607)- - Lipid Profile 10/22/2016 Morales Corin(fma) Cholesterol 181 mg/dL 120- 200 Triglycerides 280 mg/dL High 30-200 HDL Cholesterol 31 mg/dL 30-70 LDL (Calculated) 94 CALC 0-129 VLDL Cholesterol 56 mg/dL High 0-50 HDL Risk Factor 5.8 CALC High 0.0-4.4 Laboratory test finding 10/22/2016 Morales Corin(fma) PSA 0.3 ng/mL 0.0 -4.0 LDL, Direct 112 mg/dL 0-130 20 Laboratory test finding 10/22/2016 [facility] (Fma) 2.2 2.0- 3.0 (607)- - Comprehensive Metabolic 09/26/2016 Andrew Corin(a) Sodium 136 mEq/L 134-149 Prof Potassium 4.2 mEq/L 3.6-5.5 Chloride 103 mEq/L 94-112 Carbon Dioxide 24 mEq/L 21-32 Glucose 91 mg/dL 70-105 BUN 23 mg/dL 6-26 Creatinine 0.9 mg/dL 0.6-1.4 BUN/Creat Ratio 25.6 CALC 8.0-36.0 Calcium 10.0 mg/dL 8.6-10.2 Total Protein 7.9 g/dL 6.4-8.3 Albumin 4.6 g/dL 3.8-5.5 Globulin 3.3 g/dL 2.0-4.8 A/G Ratio 1.4 CALC 0.6-2.3 Alk. Phosphatase 25 U/L 22-95 Alt (SGPT) 56 U/L High 7-35 21 Ast (Sgot) 34 U/L 5-34 Total Bilirubin 0.4 mg/dL 0.2-1.3 GFR Non- >60 ml/min/1.73m^ >=60 GFR >60 ml/min/1.73m^ >=60 Complete Blood Count 09/26/2016 Morales Corin(a) WBC 8.1 x10^3/UL 3.6 -9.6 RBC 5.08 x10^6/UL 3.90-5.70 HGB 15.6 g/dL 12.1-17.2 HCT 46 % 36-50 MCV 91.0 fL 82.2-97.4 MCH 30.7 pg 27.6-33.3 MCHC 33.6 g/dL 33.0-35.5 RDW 14.0 % High 11.6-13.7 PLT 281 x10^3/UL 150-400 MPV 8.2 fL 7.4-10.4 Gran # 4.1 x10^3/UL 1.5-7.2 Lymph# 3.5 x10^3/UL 0.7-4.9 Donley# 0.5 x10^3/UL 0.1-0.9 Gran % 49.9 % 42.2-75.2 Lymph % 43.5 % 20.5-51.1 Donley% 6.6 % 1.7-9.3 Laboratory test 09/26/2016 [facility] Inr (a) 2.2 2.0-3.0 finding (607)- - Laboratory test 09/15/2016 [facility] Blood Culture SEE RESULT 22 finding BELOW Inr/Protime 09/15/2016 [facility] Inr 2.82 High 0.89-1.11 CBC Auto Diff 09/15/2016 [facility] White Blood 8.9 10^3/uL N 3.5-10.8 Count Red Blood Count 4.82 10^6/uL N 4.0-5.4 Hemoglobin 14.7 g/dL N 14.0-18.0 Hematocrit 43 % N 42-52 Mean Corpuscular Volume 89 fL N 80-94 Mean Corpuscular Hemoglobin 31 pg N 27-31 Mean Corpuscular HGB Conc 34 g/dL N 31-36 Red Cell Distribution Width 14 % N 10.5-15 Platelet Count 220 10^3/uL N 150-450 Mean Platelet Volume 9 um3 N 7.4-10.4 Abs Neutrophils 3.8 10^3/uL N 1.5-7.7 Abs Lymphocytes 2.9 10^3/uL N 1.0-4.8 Abs Monocytes 0.9 10^3/uL High 0-0.8 Abs Eosinophils 0.9 10^3/uL High 0-0.6 Abs Basophils 0.4 10^3/uL High 0-0.2 Abs Nucleated RBC 0.02 10^3/uL N Granulocyte % 43.1 % N 38-83 Lymphocyte % 32.9 % N 25-47 Monocyte % 10.1 % High 1-9 Eosinophil % 9.9 % High 0-6 Basophil % 4.0 % High 0-2 Nucleated Red Blood Cells % 0.2 N Laboratory test 09/15/2016 [facility] B-Type Natriuretic 174 pg/mL High 23 finding Peptide BNP Laboratory test 09/15/2016 [facility] Magnesium 1.9 mg/dL N 1.9-2.7 finding Troponin I 0.04 ng/mL High <0.04 24 Lactic Acid 1.5 mmol/L N 0.5-2.0 25 Comp Metabolic Panel 09/15/2016 [facility] Sodium 136 mmol/L N 133-145 Potassium 3.5 mmol/L N 3.5-5.0 Chloride 103 mmol/L N 101-111 Co2 Carbon Dioxide 23 mmol/L N 22-32 Anion Gap 10 mmol/L N 2-11 Glucose 125 mg/dL High 70-100 Blood Urea Nitrogen 21 mg/dL N 6-24 Creatinine 1.28 mg/dL High 0.67-1.17 BUN/Creatinine Ratio 16.4 N 8-20 Calcium 9.5 mg/dL N 8.6-10.3 Total Protein 7.5 g/dL N 6.4-8.9 Albumin 4.4 g/dL N 3.2-5.2 Globulin 3.1 g/dL N 2-4 Albumin/Globulin Ratio 1.4 N 1-3 Total Bilirubin 0.40 mg/dL N 0.2-1.0 Alkaline Phosphatase 23 U/L Low 34-104 Alt 60 U/L High 7-52 Ast 51 U/L High 13-39 Egfr Non- 55.2 N >60 Egfr 71.0 N >60 26 Laboratory test 08/28/2016 [facility] (Fma) 3.1 High 2.0-3.0 finding (607)- - Laboratory test 07/31/2016 [facility] (Fma) 2.4 2-3 finding (607)- - Laboratory test 06/30/2016 [facility] (Fma) 2.8 2-3 finding (607)- - Laboratory test 06/16/2016 [facility] (Fma) 3.3 High 2-3 finding (607)- - Laboratory test 05/17/2016 [facility] (Fma) 1.9 Low 2.0-3.0 finding (607)- - Laboratory test 04/17/2016 [facility] (Fma) 2.6 2.0-3.0 finding (607)- - Laboratory test 03/17/2016 [facility] (Fma) 2.3 2.0-3.0 finding (607)- - Laboratory test 02/15/2016 [facility] (Fma) 2.9 2.0-3.0 finding (607)- - Laboratory test 01/08/2016 [facility] (Fma) 2.6 2.0-3.0 finding (607)- - Laboratory test 12/18/2015 [facility] (Fma) 2.6 2.0-3.0 finding (607)- - Laboratory test 11/27/2015 [facility] (Fma) 3.7 High 2.0-3.0 finding (607)- - Laboratory test 11/12/2015 [facility] (Fma) 2.5 2-3 finding (607)- - Laboratory test 11/01/2015 [facility] (Fma) 1.3 Low 2.0-3.0 finding (607)- - Laboratory test 10/04/2015 [facility] (Fma) 2.2 2.0-3.0 finding (607)- - Laboratory test 09/04/2015 [facility] (Fma) 2.1 2.0-3.0 finding (607)- - Laboratory test 08/06/2015 [facility] (Fma) 2.7 2-3 finding (607)- - Laboratory test 07/05/2015 [facility] (Fma) 2.2 2.0-3.0 finding (607)- - Laboratory test 06/04/2015 [facility] (Fma) 2.7 2.0-3.0 finding (607)- - Laboratory test 05/15/2015 [facility] Wound SEE RESULT 27 finding Culture/Sens BELOW i Fungal Cult Skin/Hair/Nails SEE RESULT BELOW 28 Laboratory test finding 05/02/2015 [facility] Inr (Fma) 2.2 2.0- 3.0 (607)- - Laboratory test finding 04/02/2015 [facility] Inr (a) 2.0 2-3 (607)- - Laboratory test finding 03/12/2015 [facility] Inr (Fma) 2.5 2-3 (607)- - Comprehensive Metabolic 02/27/2015 Andrew Darnell([facility]) Sodium 137 mEq/L 134-149 Prof Potassium 4.6 mEq/L 3.6-5.5 Chloride 100 mEq/L 94-112 Carbon Dioxide 28 mEq/L 21-32 Glucose 89 mg/dL 70-105 BUN 24 mg/dL 6-26 Creatinine 1.1 mg/dL 0.6-1.4 BUN/Creat Ratio 21.8 CALC 8.0-36.0 Calcium 10.0 mg/dL 8.6-10.2 Total Protein 8.1 g/dL 6.4-8.3 Albumin 4.7 g/dL 3.8-5.5 Globulin 3.4 g/dL 2.0-4.8 A/G Ratio 1.4 CALC 0.6-2.3 Alk. Phosphatase 27 U/L 22-95 Alt (SGPT) 36 U/L High 7-35 29 Ast (Sgot) 33 U/L 5-34 Total Bilirubin 0.3 mg/dL 0.2-1.3 GFR Non- >60 ml/min/1.73m^ >=60 GFR >60 ml/min/1.73m^ >=60 Laboratory test finding 02/27/2015 Andrew Darnell(a) PSA 0.4 ng/mL 0.0 -4.0 30 LDL, Direct 127 mg/dL 0-130 Lipid Profile 02/27/2015 Morales Corin(a) Cholesterol 200 mg/dL 120- 200 Triglycerides 473 mg/dL High 30-200 HDL Cholesterol 35 mg/dL 30-70 LDL (Calculated) 70 CALC 0-129 VLDL Cholesterol 95 mg/dL High 0-50 HDL Risk Factor 5.7 CALC High 0.0-4.4 Laboratory test 02/26/2015 [facility] Inr (Fma) 2.5 2-3 finding (607)- - Laboratory test 02/21/2015 [facility] (Fma) 4.0 High 2-3 finding (607)- - Laboratory test 01/19/2015 [facility] (Fma) 2.1 2-3 finding (607)- - Laboratory test 01/15/2015 [facility] (Fma) 3.6 High 2-3 finding (607)- - Laboratory test 12/27/2014 [facility] (Fma) 2.9 2-3 finding (607)- - Laboratory test 12/18/2014 [facility] (Fma) 4.2 High 2.0-3.0 finding (607)- - Laboratory test 11/27/2014 [facility] (Fma) 2.9 2.0-3.0 finding (607)- - Laboratory test 11/13/2014 [facility] (Fma) 2.8 2.0-3.0 finding (607)- - Laboratory test 11/06/2014 [facility] (Fma) 2.2 2.0-3.0 finding (607)- - Laboratory test 11/03/2014 [facility] (Fma) 1.5 Low 2-3 finding (607)- - Laboratory test 10/16/2014 [facility] (Fma) 1.2 Low 2.0-3.0 finding (607)- - Laboratory test 10/09/2014 [facility] (Fma) 3.6 High 2.0-3.0 finding (607)- - Laboratory test 09/18/2014 [facility] (Fma) 3.2 High 2.0-3.0 finding (607)- - Laboratory test 08/28/2014 [facility] (Fma) 2.9 2.0-3.0 finding (607)- - Laboratory test 08/07/2014 [facility] (Fma) 2.6 2-3 finding (607)- - Laboratory test 07/24/2014 [facility] (Fma) 1.9 Low 0.9-1.1 finding (607)- - Laboratory test 07/17/2014 [facility] (Fma) 1.9 Low 2.0-3.0 finding (607)- - Laboratory test 07/14/2014 [facility] (Fma) 6.1 High 2.0-3.0 finding (607)- - Laboratory test 07/11/2014 [facility] Inr (Fma) 7.0 High 2.0-3.0 finding (607)- - Laboratory test 06/29/2014 [facility] Inr (Fma) 2.7 2.0-3.0 finding (607)- - Laboratory test 06/27/2014 [facility] Inr (Fma) 4.7 High 2.0-3.0 finding (607)- - Laboratory test 06/13/2014 [facility] Inr (Fma) 2.2 2.0-3.0 finding (607)- - CBC Auto Diff 06/10/2014 [facility] White Blood 13.5 High 4.8-10.8 Count 10^3/uL Red Blood Count 5.32 10^6/uL N 4.0-5.4 Hemoglobin 16.1 g/dL N 14.0-18.0 Hematocrit 48 % N 42-52 Mean Corpuscular Volume 90 fL N 80-94 Mean Corpuscular Hemoglobin 30 pg N 27-31 Mean Corpuscular HGB Conc 34 g/dL N 31-36 Red Cell Distribution Width 14 % N 10.5-15 Platelet Count 244 10^3/uL N 150-450 Mean Platelet Volume 9 um3 N 7.4-10.4 Abs Neutrophils 8.6 10^3/uL High 1.5-7.7 Abs Lymphocytes 3.3 10^3/uL N 1.0-4.8 Abs Monocytes 1.4 10^3/uL High 0-0.8 Abs Eosinophils 0.1 10^3/uL N 0-0.6 Abs Basophils 0.1 10^3/uL N 0-0.2 Abs Nucleated RBC 0.01 10^3/uL N Granulocyte % 63.5 % N 38-83 Lymphocyte % 24.8 % Low 25-47 Monocyte % 10.3 % High 1-9 Eosinophil % 0.6 % N 0-6 Basophil % 0.8 % N 0-2 Nucleated Red Blood Cells % 0.1 N Laboratory test finding 06/10/2014 [facility] Lactic Acid 0.8 mmol/L N 0.5-2.2 Comp Metabolic Panel 06/10/2014 [facility] Sodium 132 mmol/L Low 133-145 Potassium 3.4 mmol/L Low 3.5-5.0 Chloride 100 mmol/L Low 101-111 Co2 Carbon Dioxide 20 mmol/L Low 22-32 Anion Gap 12 mmol/L High 2-11 Glucose 106 mg/dL High 70-100 Blood Urea Nitrogen 13 mg/dL N 6-24 Creatinine 0.89 mg/dL N 0.67-1.17 BUN/Creatinine Ratio 14.6 N 8-20 Calcium 9.0 mg/dL N 8.6-10.3 Total Protein 7.8 g/dL N 6.4-8.9 Albumin 4.1 g/dL N 3.2-5.2 Globulin 3.7 g/dL N 2-4 Albumin/Globulin Ratio 1.1 N 1-3 Total Bilirubin 0.80 mg/dL N 0.2-1.0 Alkaline Phosphatase 25 U/L Low 34-104 Alt 21 U/L N 7-52 Ast 19 U/L N 13-39 Egfr Non- 84.8 N >60 Egfr 109.0 N >60 31 Laboratory test finding 06/10/2014 [facility] Magnesium 1.9 mg/dL N 1.9-2.7 Troponin I 0.02 ng/mL N <0.03 32 C Reactive Protein 52.29 mg/L High < 5.00 33 Inr/Protime 06/10/2014 [facility] Inr 2.66 High 0.85-1.06 Laboratory test 06/10/2014 [facility] Activated Partial 42.0 seconds High 24.0- 36.1 finding Thrombo Time D Dimer Quantitative < 200 ng/mL N Less Than 230 34 B Type Natriuretic Peptide 229 pg/mL N 35 Rapid Influenza A B Antigen (SEE NOTE) 36 Laboratory test 06/07/2014 [facility] (Fma) 3.7 High 2-3 finding (607)- - Lipid Profile 05/23/2014 [facility](fma) Cholesterol 245 mg/dL High 120-200 Triglycerides 255 mg/dL High 30-200 HDL Cholesterol 35 mg/dL 30-70 LDL (Calculated) 159 CALC High 0-129 VLDL Cholesterol 51 mg/dL High 0-50 HDL Risk Factor 7.0 CALC High 0.0-4.4 Hepatic 05/23/2014 Morales Corin(fma) Total Protein 7.8 g/dL 6.4-8.3 Albumin 4.9 g/dL 3.8-5.5 Globulin 2.9 g/dL 2.0-4.8 A/G Ratio 1.7 CALC 0.6-2.3 Alk. Phosphatase 19 U/L Low 22-95 37 Alt (SGPT) 51 U/L High 7-35 38 Ast (Sgot) 42 U/L High 5-34 39 Total Bilirubin 0.5 mg/dL 0.2-1.3 Direct Bilirubn 0.2 mg/dL 0.0-0.6 Indirect Bilirubin 0.30 mg/dL 0.10-1.00 Laboratory test 05/23/2014 [facility]) LDL, Direct 151 mg/dL High 0-130 finding Laboratory test 05/16/2014 [facility] Inr (Fma) 2.8 2.0-3.0 finding (607)- - Laboratory test 04/14/2014 [facility] Inr (a) 2.4 2.0-3.0 finding (607)- - Laboratory test 03/14/2014 [facility] Inr (Fma) 2.6 2-3 finding (607)- - Ua - Micro (a) 02/27/2014 [facility] Appearance CLEAR (607)- - Color YELLOW Glucose, Urine (Fma/[facility]/CTX) NEG Bilirubin NEG Ketones NEG SP Grav 1.015 Blood SMALL # PH 8.0 Protein NEG Urobil 0.2 Nitrite NEG Leukocytes (Fma/[facility]) NEG Hyaline - /Lpf Granular - /Lpf WBC (a,[facility]) 0-1 # RBC 7-9 # Mucus - /Lpf Epith RARE /Lpf # Bacteria - /Hpf Amorphous - /Lpf Crystals, Fluid (Fma/[facility]/CTX) - Z#Comments - Basic Metabolic Profile 02/27/2014 Morales Corin(a) Sodium 136 mEq/L 134-149 Potassium 4.7 mEq/L 3.6-5.5 Chloride 101 mEq/L 94-112 Carbon Dioxide 29 mEq/L 21-32 Glucose 91 mg/dL 70-105 BUN 19 mg/dL 6-26 Creatinine 0.9 mg/dL 0.6-1.4 BUN/Creat Ratio 21.1 CALC 8.0-36.0 Calcium 10.2 mg/dL 8.6-10.2 Laboratory test 02/10/2014 [facility] Inr (a) 1.9 Low 2.0-3.0 finding (607)- - Laboratory test 01/31/2014 [facility] In[facility] (Fma) 2.1 2-3 finding (607)- - Lipid Profile 01/13/2014 Andrew Corin(fma) Cholesterol 209 mg/dL High 120-200 Triglycerides 194 mg/dL 30-200 HDL Cholesterol 32 mg/dL 30-70 LDL (Calculated) 138 CALC High 0-129 VLDL Cholesterol 39 mg/dL 0-50 HDL Risk Factor 6.5 CALC High 0.0-4.4 Hepatic 01/13/2014 Mor[facility] Corin(fma) Total Protein 8.1 g/dL 6.3-8.1 Albumin 5.0 g/dL 3.8-5.5 Globulin 3.3 g/dL 2.0-4.8 A/G Ratio 1.6 CALC 0.6-2.3 Alk. Phosphatase 30 U/L 22-95 Alt (SGPT) 34 U/L 7-35 Ast (Sgot) 31 U/L 5-34 Total Bilirubin 0.4 mg/dL 0.2-1.3 Direct Bilirubn 0.2 mg/dL 0.0-0.6 Indirect Bilirubin 0.20 mg/dL 0.10-1.00 Laboratory test 01/13/2014 [facility] (Fma) 2.5 2-3 finding (607)- - Laboratory test 12/29/2013 [facility] (Fma) 2.0 2.0-3.0 finding (607)- - Laboratory test 12/19/2013 [facility] (Fma) 3.4 High 2-3 finding (607)- - Laboratory test 11/21/2013 [facility] (Fma) 3.0 2-3 finding (607)- - Laboratory test 11/07/2013 [facility] In[facility] (Fma) 3.3 High 2.0-3.0 finding (607)- - Laboratory test 10/17/2013 [facility] Sed Rate 7mm finding (607)- - (Fma/[facility] ) Inr (Fma) 2.1 2-3 Laboratory test finding 10/17/2013 [facility] CRP High Sensitivity 1.27 mg/L 40 Immunoglobulin A 257 mg/dL 61 - 356 41 Protein Electrophoresis 10/17/2013 [facility] Total Protein(Pep) 7.3 g/dL 6.3 - 7.9 Albumin 3.4 g/dL 3.4-4.7 Alpha-1 Globulin 0.3 g/dL 0.1-0.3 Alpha-2 Globulin 1.1 g/dL Abnormal 0.6-1.0 Beta Globulin 1.1 g/dL 0.7-1.2 Gamma Globulin 1.3 g/dL 0.6-1.6 Albumin/Globulin Ratio 0.88 Impression See Comment 42 Comprehensive Metabolic 10/17/2013 Andrew Darnell(fma) Sodium 138 mEq/L 134-149 Prof Potassium 4.1 mEq/L 3.6-5.5 Chloride 104 mEq/L 94-112 Carbon Dioxide 22 mEq/L 21-32 Glucose 103 mg/dL 70-105 BUN 19 mg/dL 6-26 Creatinine 1.0 mg/dL 0.6-1.4 BUN/Creat Ratio 19.0 CALC 8.0-36.0 Calcium 9.4 mg/dL 8.6-10.2 Total Protein 7.5 g/dL 6.3-8.1 Albumin 4.7 g/dL 3.8-5.5 Globulin 2.8 g/dL 2.0-4.8 A/G Ratio 1.7 CALC 0.6-2.3 Alk. Phosphatase 30 U/L 22-95 Alt (SGPT) 46 U/L High 10-40 43 Ast (Sgot) 28 U/L 5-34 Total Bilirubin 0.4 mg/dL 0.2-1.3 Complete Blood Count 10/17/2013 Andrew Darnell([facility]ma) WBC 7.9 x10^3/UL 3.6 -9.6 RBC 4.40 x10^6/UL 3.90-5.70 HGB 13.9 g/dL 12.1-17.2 HCT 41 % 36-50 MCV 93.0 fL 82.2-97.4 MCH 31.6 pg 27.6-33.3 MCHC 34.0 g/dL 33.0-35.5 RDW 13.4 % 11.6-13.7 PLT 241 x10^3/UL 150-400 MPV 8.1 fL 7.4-10.4 Gran # 6.1 x10^3/UL 1.5-7.2 Lymph# 1.4 x10^3/UL 0.7-4.9 Donley# 0.4 x10^3/UL 0.1-0.9 Gran % 75.3 % High 42.2-75.2 Lymph % 18.5 % Low 20.5-51.1 Donley% 6.2 % 1.7-9.3 Laboratory test finding 10/10/2013 [facility] ([facility]) 2.0 2-3 (607)- - Laboratory test finding 10/03/2013 [facility] ([facility]) 3.1 High 2- 3 (607)- - Laboratory test finding 09/01/2013 [facility] ([facility]) 2.5 2-3 (607)- - Laboratory test finding 08/04/2013 [facility] ([facility]) 2.8 2.0- 3.0 (607)- - Laboratory test finding 07/05/2013 [facility] ([facility]) 2.3 2-3 (607)- - Laboratory test finding 06/06/2013 [facility] ([facility]) 2.7 2-3 (607)- - Laboratory test finding 05/16/2013 [facility] ([facility]) 2.5 2-3 (607)- - Laboratory test finding 05/02/2013 [facility] ([facility]) 2.4 2-3 (607)- - Laboratory test finding 04/22/2013 [facility] ([facility]) 3.5 High 2- 3 (607)- - Laboratory test finding 04/12/2013 [facility] ([facility]) 3.8 High 2- 3 (607)- - Laboratory test finding 03/31/2013 [facility] ([facility]) 2.9 2-3 (607)- - Laboratory test finding 03/24/2013 [facility] ([facility]) 2.8 2-3 (607)- - Laboratory test finding 03/21/2013 [facility] ([facility]) 3.5 High 2- 3 (607)- - Laboratory test finding 03/19/2013 [facility] ([facility]) 1.8 Low 2.0- 3.0 (607)- - Urinalysis 03/14/2013 [facility] Urine Color Yellow Urine Appearance Clear Urine Specific [place] 1.017 1.010-1.030 Urine Esterase Negative Negative Urine Nitrate Negative Negative Urine Urobilinogen Negative E.U./dL Negative Urine Protein Negative mg/dL Negative Urine pH 5.5 5-9 Urine Blood 1+ Abnormal Negative Urine Ketones Negative mg/dL Negative Urine Bilirubin Negative Negative Urine Glucose Negative mg/dL Negative Urine Microscopic 03/14/2013 [facility] Urine RBC 1+ (<3 /hpf) None Seen Urine Mucus Present /lpf Absent Urine Epithelial Cells 1+ Urothelial /hpf None Seen Bacteria Urine 1+ None Seen CBC Auto Diff 03/14/2013 [facility] White Blood Count 10.5 10^3/uL 4.8-10.8 Red Blood Count 5.15 10^6/uL 4.0-5.4 Hemoglobin 15.9 g/dL 14.0-18.0 Hematocrit 47 % 42-52 Mean Corpuscular Volume 91 fL 80-94 Mean Corpuscular Hemoglobin 31 pg 27-31 Mean Corpuscular HGB Conc 34 g/dL 31-36 Red Cell Distribution Width 15 % 10.5-15 Platelet Count 239 10^3/uL 150-450 Mean Platelet Volume 9 um3 7.4-10.4 Abs Neutrophils 6.3 10^3/uL 1.5-7.7 Abs Lymphocytes 2.7 10^3/uL 1.0-4.8 Abs Monocytes 0.9 10^3/uL High 0-0.8 Abs Eosinophils 0.4 10^3/uL 0-0.6 Abs Basophils 0.1 10^3/uL 0-0.2 Abs Nucleated RBC 0 10^3/uL Granulocyte % 60.5 % 38-83 Lymphocyte % 25.7 % 25-47 Monocyte % 8.8 % 1-9 Eosinophil % 4.1 % 0-6 Basophil % 0.9 % 0-2 Nucleated Red Blood Cells % 0 Comp Metabolic Panel 03/14/2013 [facility] Sodium 135 mmol/L 133-145 Potassium 3.7 mmol/L 3.5-5.0 Chloride 101 mmol/L 101-111 Co2 Carbon Dioxide 25.0 mmol/L 22-32 Anion Gap 9.0 mmol/L 2-11 Glucose 111 mg/dL High 70-100 Blood Urea Nitrogen 11 mg/dL 6-24 Creatinine 0.90 mg/dL 0.50-1.40 BUN/Creatinine Ratio 12.2 8-20 Calcium 9.6 mg/dL 8.1-9.9 Total Protein 8.1 g/dL 6.2-8.1 Albumin 4.7 g/dL 3.2-5.2 Globulin 3.4 g/dL 2-4 Albumin/Globulin Ratio 1.4 1-3 Total Bilirubin 0.8 mg/dL 0.4-1.5 Alkaline Phosphatase 30 U/L 30-110 Alt 36 U/L 14-54 Ast 36 U/L 12-42 Egfr Non- 83.9 >60 Egfr 107.9 >60 44 Laboratory test finding 03/14/2013 [facility] Lipase 21 U/L Low 22-51 Troponin I 0.02 ng/mL 0-0.06 45 C Reactive Protein < 0.5 mg/dL Less than 0.5 Comprehensive Metabolic 01/18/2013 Andrew Corin(a) Albumin 4.8 g/dL 3.8-5.5 Prof Alk. Phos. 35 U/L 22-95 Alt (SGPT) 29 U/L 10-40 Ast (Sgot) 27 U/L 5-34 BUN 22 mg/dL 6-26 Calcium 9.6 mg/dL 8.6-10.2 Chloride 103 mEq/L 94-112 Creatinine 0.9 mg/dL 0.6-1.4 Carbon Dioxide 23 mEq/L 21-32 Glucose 85 mg/dL 70-105 Sodium 136 mEq/L 134-149 Total Bilirubin 0.4 mg/dL 0.2-1.3 Total Protein 7.5 g/dL 6.3-8.1 Potassium 4.4 mEq/L 3.6-5.5 Globulin 2.7 g/dL 2.0-4.8 A/G Ratio 1.8 Calc 0.6-2.3 BUN/Creat Ratio 25.1 Calc 8.0-36.0 Lipid Profile 01/18/2013 Andrew Corin(fma) Cholesterol 186 mg/dL 120- 200 HDL 32 mg/dL 30-70 Triglycerides 209 mg/dL High 30-200 HDL Risk Factor 5.8 CALC High 0.0-4.4 LDL (Calculated) 112 CALC 0-129 VLDL (Calculated) 42 mg/dL 0-50 Ict-Hemoccult (MCR)Fma 08/09/2012 [facility] Ict Hemoccult (1) neg Screening (607)- - Ict Hemoccult-(2) neg Ict-Hemoccult (3) neg Laboratory test 2012 Andrew Darnell(fma) PSA 0.40 ng/mL 0.00-4.00 finding Comprehensive 2012 Morales Corin(fma) Albumin 5.0 g/dL 3.8-5.5 Metabolic Prof Alk. Phos. 37 U/L 22-95 Alt (SGPT) 32 U/L 10-40 Ast (Sgot) 29 U/L 5-34 BUN 13 mg/dL 6-26 Calcium 10.2 mg/dL 8.6-10.2 Chloride 98 mEq/L 94-112 Creatinine 1.0 mg/dL 0.6-1.4 Carbon Dioxide 22 mEq/L 21-32 Glucose 103 mg/dL 70-105 Sodium 134 mEq/L 134-149 Total Bilirubin 0.5 mg/dL 0.2-1.3 Total Protein 7.5 g/dL 6.3-8.1 Potassium 4.3 mEq/L 3.6-5.5 Globulin 2.5 g/dL 2.0-4.8 A/G Ratio 2.0 Calc 0.6-2.3 BUN/Creat Ratio 12.7 Calc 8.0-36.0 Lipid Profile 2012 Morales Corin(a) Cholesterol 216 mg/dL High 120-200 HDL 41 mg/dL 30-70 Triglycerides 139 mg/dL 30-200 HDL Risk Factor 5.3 CALC High 0.0-4.4 LDL (Calculated) 147 CALC High 0-129 VLDL (Calculated) 28 mg/dL 0-50 Comprehensive Metabolic 01/19/2012 Morales Corin(a) Albumin 4.9 g/dL 3.8-5.5 Prof Alk. Phos. 33 U/L 22-95 Alt (SGPT) 36 U/L 10-40 Ast (Sgot) 29 U/L 5-34 BUN 13 mg/dL 6-26 Calcium 9.2 mg/dL 8.6-10.2 Chloride 98 mEq/L 94-112 Creatinine 1.0 mg/dL 0.6-1.4 Carbon Dioxide 22 mEq/L 21-32 Glucose 100 mg/dL 70-105 Sodium 138 mEq/L 134-149 Total Bilirubin 0.4 mg/dL 0.2-1.3 Total Protein 7.3 g/dL 6.3-8.1 Potassium 4.0 mEq/L 3.6-5.5 Globulin 2.5 g/dL 2.0-4.8 A/G Ratio 2.0 Calc 0.6-2.2 BUN/Creat Ratio 13.2 Calc 8.0-36.0 Lipid Profile 01/19/2012 Andrew Darnell(a) Cholesterol 211 mg/dL High 120-200 HDL 36 mg/dL 30-70 Triglycerides 203 mg/dL High 30-200 HDL Risk Factor 5.8 CALC High 0.0-4.0 LDL (Calculated) 134 CALC High 0-129 VLDL (Calculated) 41 mg/dL 0-50 CBC Electronic (a) 10/20/2011 Family [facility] WBC 7.2 3.6-9.6 (607)- - RBC 5.08 3.90-5.70 Hemoglobin (Fma/CMC/CTX) 15.1 g/dL 12.1 - 17.2 Hematocrit (Fma/CMC/CTX) 46.4 % 36.1 - 50.3 Platelets 249 10^3/ul 150-400 Lymph% 38.3 20.5-51.1 Mixed% 8.2 Neutrophils % 53.5 Mean Corpuscular Vol 91 82.2-97.4 Mean Corpuscular Hemoglobin 29.8 27.6-33.3 Mean Corpuscular Hemo Concen 32.6 32.0-36.0 RDW 12.7 11.6-13.7 Mean Platelet Volume 7.6 6.5-11.0 Laboratory test finding 10/20/2011 Morales Flora(a) BUN 17 mg/dL 6- 26 Creatinine 0.9 mg/dL 0.6-1.4 Laboratory test 10/20/2011 [facility] C-Reactive 0.6 mg/L 0.0-5.0 46 finding [address] [place] [address] [phone] Comprehensive 07/09/2011 Morales Corin(a) Albumin 4.7 g/dL 3.8-5.5 Metabolic Prof Alk. Phos. 33 U/L 22-95 Alt (SGPT) 52 U/L High 10-40 Ast (Sgot) 35 U/L High 5-34 BUN 13 mg/dL 6-26 Calcium 9.6 mg/dL 8.6-10.2 Chloride 102 mEq/L 94-112 Creatinine 1.0 mg/dL 0.6-1.4 Carbon Dioxide 25 mEq/L 21-32 Glucose 97 mg/dL 70-105 Sodium 136 mEq/L 134-149 Total Bilirubin 0.3 mg/dL 0.2-1.3 Total Protein 7.7 g/dL 6.3-8.1 Potassium 4.4 mEq/L 3.6-5.5 Globulin 3.0 g/dL 2.0-4.8 A/G Ratio 1.5 Calc 0.6-2.2 BUN/Creat Ratio 12.7 Calc 8.0-36.0 Lipid Profile 07/09/2011 Morales Corin(a) Cholesterol 187 mg/dL 120- 200 HDL 38 mg/dL 30-70 Triglycerides 196 mg/dL 30-200 HDL Risk Factor 4.9 CALC High 0.0-4.0 LDL (Calculated) 110 CALC 0-129 VLDL (Calculated) 39 mg/dL 0-50 Laboratory test 07/09/2011 [facility] PSA 0.30 ng/mL 0.00-4.00 finding Comprehensive 01/21/2011 Morales Corin([facility]) Albumin 5.2 g/dL 3.8-5.5 Metabolic Prof Alk. Phos. 36 U/L 22-95 Alt (SGPT) 41 U/L High 10-40 Ast (Sgot) 38 U/L High 5-34 BUN 18 mg/dL 6-26 Calcium 9.9 mg/dL 8.6-10.2 Chloride 104 mEq/L 94-112 Creatinine 1.0 mg/dL 0.6-1.4 Carbon Dioxide 22 mEq/L 21-32 Glucose 107 mg/dL High 70-105 47 Sodium 140 mEq/L 134-149 Total Bilirubin 0.3 mg/dL 0.2-1.3 Total Protein 7.8 g/dL 6.3-8.1 Potassium 4.4 mEq/L 3.6-5.5 Globulin 2.6 g/dL 2.0-4.8 A/G Ratio 2.0 Calc 0.6-2.2 BUN/Creat Ratio 19.0 Calc 8.0-36.0 Lipid Profile 01/21/2011 Morales Corin(a) Cholesterol 197 mg/dL 120- 200 HDL 39 mg/dL 30-70 Triglycerides 130 mg/dL 30-200 HDL Risk Factor 5.1 CALC High 0.0-4.0 LDL (Calculated) 133 CALC High 0-129 VLDL (Calculated) 26 mg/dL 0-50 Comprehensive Metabolic 05/20/2010 Morales Corin(fma) Albumin 4.7 g/dL 3.8-5.5 Prof Alk. Phos. 38 U/L 22-95 Alt (SGPT) 35 U/L 10-40 Ast (Sgot) 28 U/L 5-34 BUN 14 mg/dL 6-26 Calcium 9.4 mg/dL 8.6-10.2 Chloride 104 mEq/L 94-112 Creatinine 1.0 mg/dL 0.6-1.4 Carbon Dioxide 23 mEq/L 21-32 Glucose 104 mg/dL 70-105 Sodium 139 mEq/L 134-149 Total Bilirubin 0.4 mg/dL 0.2-1.3 Total Protein 7.6 g/dL 6.3-8.1 Potassium 4.3 mEq/L 3.6-5.5 Globulin 3.0 g/dL 2.0-4.8 A/G Ratio 1.6 Calc 0.6-2.2 BUN/Creat Ratio 14.4 Calc 8.0-36.0 Lipid Profile 05/20/2010 Morales Corin(fma) Cholesterol 205 mg/dL High 120-200 HDL 33 mg/dL 30-70 Triglycerides 222 mg/dL High 30-200 HDL Risk Factor 6.3 CALC 4.2-7.0 LDL (Calculated) 128 CALC 0-129 VLDL (Calculated) 44 mg/dL 0-50 Laboratory test 05/20/2010 Morales Corin(a) PSA 0.30 ng/mL 0.00-4.00 finding Comprehensive 01/15/2010 Morales Corin(a) Albumin 4.7 g/dL 3.8-5.5 Metabolic Prof Alk. Phos. 33 U/L -95 Alt (SGPT) 33 U/L 10-40 Ast (Sgot) 27 U/L 5-34 BUN 15 mg/dL 6-26 Calcium 10.1 mg/dL 8.6-10.2 Chloride 99 mEq/L 94-112 Creatinine 1.0 mg/dL 0.6-1.4 Carbon Dioxide 24 mEq/L 21-32 Glucose 108 mg/dL High 70-105 48 Sodium 139 mEq/L 134-149 Total Bilirubin 0.4 mg/dL 0.2-1.3 Total Protein 7.5 g/dL 6.3-8.1 Potassium 4.2 mEq/L 3.6-5.5 Globulin 2.8 g/dL 2.0-4.8 A/G Ratio 1.7 Calc 0.6-2.2 BUN/Creat Ratio 15.5 Calc 8.0-36.0 Lipid Profile 01/15/2010 Andrew Darnell([facility] Cholesterol 203 mg/dL High 120-200 HDL 40 mg/dL 30-70 Triglycerides 172 mg/dL 30-200 HDL Risk Factor 5.1 CALC 4.2-7.0 LDL (Calculated) 129 CALC 0-129 VLDL (Calculated) 34 mg/dL 0-50 CBC ([facility]) 10/08/2009 [facility] WBC 7.0 3.6-9.6 (607)- - RBC 5.03 3.90-5.70 Hemoglobin (Fma/CMC/CTX) 15.7 g/dL 12.1 - 17.2 Hematocrit (Fma/CMC/CTX) 44.7 % 36.1 - 50.3 Mean Corpuscular Vol 88.9 82.2-97.4 Mean Corpuscular Hemaglobin 31.2 27.6-33.3 Mean Corpuscular Hemo Concen 35.1 33.0-36.0 Platelets 215 10^3/ul 150-400 Lymph% 37.3 20.5-51.1 Mixed% 17.4 Neutrophils % 45.3 RDW 15.4 High 11.6-13.7 Mean Platelet Volume 11.3 High 7.4-10.4 Comprehensive Metabolic 10/08/2009 Andrew Darnell([facility] Albumin 4.8 g/dL 3.8-5.5 Prof Alk. Phos. 48 U/L 22-95 Alt (SGPT) 68 U/L High 10-40 Ast (Sgot) 39 U/L High 5-34 BUN 16 mg/dL 6-26 Calcium 9.7 mg/dL 8.6-10.2 Chloride 101 mEq/L 94-112 Creatinine 1.0 mg/dL 0.6-1.4 Carbon Dioxide 22 mEq/L 21-32 Glucose 109 mg/dL High 70-105 49 Sodium 141 mEq/L 134-149 Total Bilirubin 0.5 mg/dL 0.2-1.3 Total Protein 8.1 g/dL 6.3-8.1 Potassium 4.4 mEq/L 3.6-5.5 Globulin 3.3 g/dL 2.0-4.8 A/G Ratio 1.5 Calc 0.6-2.2 BUN/Creat Ratio 16.6 Calc 8.0-36.0 Lipid Profile 10/08/2009 Morales Corin(fma) Cholesterol 224 mg/dL High 120-200 HDL 36 mg/dL 30-70 Triglycerides 244 mg/dL High 30-200 HDL Risk Factor 6.3 CALC 4.2-7.0 LDL (Calculated) 140 CALC High 0-129 VLDL (Calculated) 49 mg/dL 0-50 Hepatic 06/05/2009 Morales Corin(a) Albumin 4.7 g/dL 3.8-5.5 Alk. Phos. 52 U/L 22-95 Alt (SGPT) 56 U/L High 10-40 Ast (Sgot) 37 U/L High 5-34 Total Bilirubin 0.5 mg/dL 0.2-1.3 Total Protein 8.3 g/dL High 6.3-8.1 Direct Bilirubin 0.2 mg/dL 0.0-0.6 Globulin 3.6 g/dL 2.0-4.8 A/G Ratio 1.3 Calc 0.6-2.2 Indirect Bilirubin 0.26 0.10-1.00 Urine Culture 05/08/2009 [facility] Urine Culture NG 50 Sensitivity Sensitivi Ua - Micro (a) 05/08/2009 [facility] Appearance clear (607)- - Color yellow Glucose, Urine (Fma/CMC/CTX) neg Bilirubin neg Ketones neg SP Grav <1.005 Blood trace PH 6.0 Protein neg Urobil 0.2 Nitrite neg Leukocytes (Fma/CMC/[facility]) neg Hyaline - /Lpf Granular - /Lpf WBC (Fma,[facility]) 1-2 RBC 3-4 Mucus (Fma/CBC/[facility]) - /Lpf Epith - /Lpf Bacteria - /Hpf Amorphous (Fma/CMC/[facility]) - /Lpf Crystals, Fluid (Fma/CMC/CTX) - Z#Comments - Laboratory test 05/08/2009 Morales Corin([facility] PSA 0.20 ng/mL 0.00-4.00 finding Lipid Profile 05/08/2009 Morales Corin(fma) Cholesterol 158 mg/dL 120- 200 HDL 36 mg/dL 30-70 Triglycerides 200 mg/dL 30-200 HDL Risk Factor 4.4 CALC 4.2-7.0 LDL (Calculated) 82 CALC 0-129 VLDL (Calculated) 40 mg/dL 0-50 Comprehensive Metabolic 05/08/2009 Morales Corin(fma) Glucose 99 mg/dL 70-105 Prof BUN 14 mg/dL 6-26 Creatinine 1.0 mg/dL 0.6-1.4 Sodium 139 mEq/L 134-149 Potassium 4.3 mEq/L 3.6-5.5 Chloride 102 mEq/L 94-112 Carbon Dioxide 22 mEq/L 21-32 Albumin 4.7 g/dL 3.8-5.5 Total Protein 8.1 g/dL 6.3-8.1 Calcium 9.6 mg/dL 8.6-10.2 Alk. Phos. 44 U/L 22-95 Ast (Sgot) 39 U/L High 5-34 Alt (SGPT) 55 U/L High 10-40 Total Bilirubin 0.4 mg/dL 0.2-1.3 Globulin 3.4 g/dL 2.0-4.8 A/G Ratio 1.4 Calc 0.6-2.2 BUN/Creat Ratio 14.3 Calc 8.0-36.0 1 RESULTS VERIFIED BY REPEAT ANALYSIS 2 *Ascorbic acid is present which may interfere with detection of blood. 3 Mild monocytosis noted, favor reactive. Reviewed by Dr. Lucero 4 SEE RESULT BELOW Name: CLAUDEGLEN : [address]: Terrence Clement MD Acct: [id number] Unit: [id number] AGE: 72 Location: ED Re07/19/18 SEX: M Status: REG ER SPEC: [id number] PATTI: 07/19/18-1110 [facility] DR: Claudio GUZMÁN REQ: [id number] RECD: 07/19/18 STATUS: RES OTHR DR: Jesus Manuel Ga MD _ SOURCE: STOOL SPDESC: ORDERED: C. randa PCR Procedure Result Reported Site Stool Specimen Description Final 07/19/181133 ML Stool Color [place] Stool Form Nonformed Stool Consistency Thick Liquid C. difficile PCR PENDING * ML - Main Lab . END OF REPORT DEPARTMENT OF PATHOLOGY, [address] [place] [id number] Alessandro Lucero M.D. Director [facility] # [id number] 5 SEE RESULT BELOW Name: GLEN ARCE Joe : [address]: Reji Mccain MD Acct: [id number] Unit: [id number] AGE: 73 Location: [place] [address]- Re07/19/18 Dis: 07/21/18 SEX: M Status: DIS IN SPEC: [id number] PATTI: 07/19/[address]: Claudio GUZMÁN REQ: [id number] RECD: 07/19/18 STATUS: MARIA ESTHER MAYA DR: Jesus Manuel Ga MD _ SOURCE: BLOOD,VENO SPDESC: ORDERED: Blood Cult Procedure Result Reported Site Aerobic Culture Bottle Final 07/24/18- 41 ML No Growth Day 5 Anaerobic Culture Bottle Final 07/24/18- 0941 ML No Growth Day 5 * ML - Main Lab . END OF REPORT DEPARTMENT OF PATHOLOGY, [address] [place] [address] Alessandro Lucero M.D. Director [facility] # [id number] 6 Troponin-I testing on Plasma Separator Tubes (PST) has a known false positive rate of 0.20-0.40%. All positive troponins reflex immediate secondary confirmatory testing. 7 [facility] Severe Sepsis and Septic Shock Management Bundle Measure requires all lactic acids initially measuring >2.0 mmol/L be repeated. 8 Because ethnic data is not always readily available, this report includes an eGFR for both -Americans and non- Americans. The National Kidney Disease Education Program (NKDEP) does not endorse the use of the MDRD equation for patients that are not between the ages of 18 and 70, are , have extremes of body size, muscle mass, or nutritional status, or are non- or non-. According to the National Kidney Foundation, irrespective of diagnosis, the stage of the disease is based on the level of kidney function: Stage Description GFR(mL/min/1.73 m(2)) 1 Kidney damage with normal or decreased GFR 90 2 Kidney damage with mild decrease in GFR 60-89 3 Moderate decrease in GFR 30-59 4 Severe decrease in GFR 15-29 5 Kidney failure <15 (or dialysis) 9 Please note: The following may produce a false positive D Dimer test: - Rheumatoid factor greater than 60 IU/ml - Plasma hemoglobin greater than 0.05 gm/dl - Bilirubin greater than 50 mg/dl - Lipids greater than 1000 mg/dl - FDP greater than 20 ug/ml 10 SEE RESULT BELOW Name: GLEN ARCE : [address]: Vera Underwood Acct: [id number] Unit: [id number] AGE: 72 Location: ED Re07/19/18 SEX: M Status: REG ER SPEC: [id number] PATTI: 07/19/[address]: Claudio GUZMÁN REQ: [id number] RECD: 07/19/18 STATUS: MARIA ESTHER MAYA DR: [facility] Jesus Manuel Ga MD _ SOURCE: NASAL SPDESC: ORDERED: Flu A B Request Procedure Result Reported Site Rapid Influenza A B Request Final 07/19/18- 956 ML Specimen received for Influenza A/B Molecular testing * ML - Main Lab . END OF REPORT DEPARTMENT OF PATHOLOGY, [address] [place] [address] Alessandro Lucero M.D. Director [facility] # [id number] [employer] Consultant: [id number] A negative result indicates a low likelihood that a colorectal cancer (CRC ) or an advanced adenoma (adenomatous polyps with more advanced pre-malignant features) is present. The chance that a person wit h a negative Cologuard test has a colorectal cancer is less than 1 in 1500 ( negative predictive value >99.9%) or has an advanced adenoma is less than 5.3% ( negative predictive value 94.7%). These cortez a are based on a prospective cross-sectional screening study of 10,000 individuals at average risk for colorectal cancer who were screened with both Cologuard and colonoscopy. (Lilli Cruz al, N Eng l J Med 2014;370(14):2906-8053)\\X0A\\ \\X0A\\COLOGUARD RE-SCREENING RECOMMENDATION: Periodic routine colorectal cancer screening is an important part of preventive healthcare for asymptomatic persons at av erage risk for colorectal cancer. Following a negative Cologuard result, the [place] [employer] and U.S. Multi-Society Task Force screening guidelines recommend a Cologuard re-screening interval o f 3 years. \\X0A\\References: [place] [employer] (ACS). Colorectal cancer prevention and early detection. [place], [place]: [place] [employer]; [updated 2015Sep 29]. https://www.cancer.org/cancer/co opa-ifsenu-riulza/cbgxdtwdj-qljldoppl-wijdpxs/acs-recommendations.html. Accessed February 05, 2018; Rush GIMENEZ, Jasmine STEIN, Regina QUEEN, Colorectal Cancer Screening: Recommendations for Physicians and Patients from the U.S. Multi-Society Task Force on Colorectal Cancer Screening, Am J Gastroenterology 2017; 112:2365-0984. Test Type: Composite algorithmic analysis of stool DNA-biomarkers with hemoglobin immunoassay. Quantitative values of individual biomarkers are not reportable and are not associated with individual biomarker result reference ranges. Precautions and Limitations: Cologuard is intended for colorectal cancer screening of adults of either sex, 50 years or older, who are at typical average-risk for colorectal cancer. A negative C ologuard test result does not guarantee the absence of colorectal cancer or advanced adenoma (pre-cancer). Patients with a negative Cologuard test result should be advised to continue participating in a colorectal cancer screening program. Cologuard may produce a positive result , even though a colonoscopy may not find colorectal cancer or precancerous polyps. The performance of Cologuard has been esta blished in a cross sectional study (i.e., single point in time). Performance has not been evaluated in adults who have been previously tested with Cologuard or in patients less than 50 years of age. Col oguard has been approved for use by the U.S. FDA. Cologuard performance data in a 10,000 patient pivotal study using colonoscopy as the reference method can be accessed at the following location: www.InflowControl/results. Additional description of the Cologuard test process, warnings and precautions can be found at [email or web address]. Rx Only. 13 Cancelled - Duplicate Order This order has been cancelled due to patient order duplication. Test Type: Composite algorithmic analysis of stool DNA-biomarkers with hemoglobin immunoassay. Quantitative values of individual biomarkers are not reportable and are not associated with individual biomarker result reference ranges. Precautions and Limitations: Cologuard is intended for colorectal cancer screening of adults of either sex, 50 years or older, who are at typical average-risk for colorectal cancer. A negative C ologuard test result does not guarantee the absence of colorectal cancer or advanced adenoma (pre-cancer). Patients with a negative Cologuard test result should be advised to continue participating in a colorectal cancer screening program. Cologuard may produce a positive result , even though a colonoscopy may not find colorectal cancer or precancerous polyps. The performance of Cologuard has been esta blished in a cross sectional study (i.e., single point in time). Performance has not been evaluated in adults who have been previously tested with Cologuard or in patients less than 50 years of age. Col oguard has been approved for use by the U.S. FDA. Cologuard performance data in a 10,000 patient pivotal study using colonoscopy as the reference method can be accessed at the following location: www.InflowControl/results. Additional description of the Cologuard test process, warnings and precautions can be found at [email or web address]. Rx Only. 14 >100 to <200 pg/mL: likely compensated congestive heart failure (CHF) 200 to 400 pg/mL: likely moderate CHF >400 pg/mL: likely moderate to severe CHF 15 Because ethnic data is not always readily available, this report includes an eGFR for both -Americans and non- Americans. The National Kidney Disease Education Program (NKDEP) does not endorse the use of the MDRD equation for patients that are not between the ages of 18 and 70, are , have extremes of body size, muscle mass, or nutritional status, or are non- or non-. According to the National Kidney Foundation, irrespective of diagnosis, the stage of the disease is based on the level of kidney function: Stage Description GFR(mL/min/1.73 m(2)) 1 Kidney damage with normal or decreased GFR 90 2 Kidney damage with mild decrease in GFR 60-89 3 Moderate decrease in GFR 30-59 4 Severe decrease in GFR 15-29 5 Kidney failure <15 (or dialysis) 16 *Ascorbic acid is present which may interfere with detection of blood. 17 Please note: The following may produce a false positive D Dimer test: - Rheumatoid factor greater than 60 IU/ml - Plasma hemoglobin greater than 0.05 gm/dl - Bilirubin greater than 50 mg/dl - Lipids greater than 1000 mg/dl - FDP greater than 20 ug/ml 18 1sst 19 Negative: < 0.8 Indeterminate: 0.8 - 0.9 Positive: > 0.9 The CDC recommends that a positive HCV antibody result be followed up with a HCV Nucleic Acid Amplification test (944154). 20 1sst 21 consistent w/ previous results 22 SEE RESULT BELOW Name: GLEN ARCE Joe : [address]: Mary Soliz DO Acct: [id number] Unit: [id number] AGE: 71 Location: [place] [address] Re09/16/16 Dis: 09/17/16 SEX: M Status: DIS IN SPEC: [id number] PATTI: 09/15/[address]: Eda Grimm MD REQ: [id number] RECD: 09/15/16 STATUS: MARIA ESTHER MAYA DR: Jesus Manuel Ga MD _ SOURCE: BLOOD,VENO SPDESC: ORDERED: Blood Cult Procedure Result Reported Site Aerobic Culture Bottle Final 09/20/16- 1646 ML No Growth Day 5 Anaerobic Culture Bottle Final 09/20/16- 1646 ML No Growth Day 5 * ML - MAIN LAB ([facility]) . END OF REPORT * ML=Testing performed at Main Lab DEPARTMENT OF PATHOLOGY, [address] [place] [address] Alessandro Lucero M.D. Director [facility] # [id number] 23 >100 to <200 pg/mL: likely compensated congestive heart failure (CHF) 200 to 400 pg/mL: likely moderate CHF >400 pg/mL: likely moderate to severe CHF 24 Result TnIDx:0.04 Called to CARMELO at: 16:32:39 by:[id number] Read back by: CARMELO 99th percentile=0.04 ng/mL Troponin results at [facility] and [facility] are not interchangeable. 25 [facility] Severe Sepsis and Septic Shock Management Bundle Measure requires all lactic acids initially measuring >2.0 mmol/L be repeated. 26 Because ethnic data is not always readily available, this report includes an eGFR for both -Americans and non- Americans. The National Kidney Disease Education Program (NKDEP) does not endorse the use of the MDRD equation for patients that are not between the ages of 18 and 70, are , have extremes of body size, muscle mass, or nutritional status, or are non- or non-. According to the National Kidney Foundation, irrespective of diagnosis, the stage of the disease is based on the level of kidney function: Stage Description GFR(mL/min/1.73 m(2)) 1 Kidney damage with normal or decreased GFR 90 2 Kidney damage with mild decrease in GFR 60-89 3 Moderate decrease in GFR 30-59 4 Severe decrease in GFR 15-29 5 Kidney failure <15 (or dialysis) 27 SEE RESULT BELOW Name: GLEN ARCE : [address]: Jerilyn Chou NP Acct: [id number] Unit: [id number] AGE: 69 Location: [facility] Re05/15/15 SEX: M Status: REG REF SPEC: [id number] PATTI: 05/15/1545 [facility] DR: Jerilyn Chou NP REQ: [id number] RECD: 05/15/15124 STATUS: COMP ZULMA DR: Jesus Manuel Ga MD _ [facility] ORDERED: Culture Stain COMMENTS: Verbal to DANIELLE Law by [id number] at 0936 on 05/17/15. QUERIES: Specimen Description FRANCINE Procedure Result Reported Site Wound/Misc Gram Stain Final 05/16/15- 0756 ML 1+ Epithelial Cells No Neutrophils Observed No Organisms Seen Wound/Misc Culture Final 05/18/15- 0859 ML Organism 1 MRSA Quantity 2+ Organism 2 STREP GROUP G Quantity 1+ Organism 3 NORMAL CORIN Quantity 1+ 1. MRSA M.I.C. RX --------- ------ Penicillin >=0.5 R Clindamycin <=0.25 S Erythromycin <=0.25 S Gentamicin <=0.5 S Linezolid 2 S Nitrofurantoin 32 S Oxacillin >=4 R * Quinupristin/Dalfopristin 0.5 S Rifampin <=0.5 S Tetracycline <=1 S CONTINUED ON NEXT PAGE * ML=Testing performed at Main Lab DEPARTMENT OF PATHOLOGY, [address] [place] [address] Alessandro Lucero M.D. Director [facility] # [id number] Patient: CLAUDEGLEN [id number] (Continued) Specimen: [id number] Collected: 05/15/15 Received: 05/15/15 (Continued) Procedure Result Reported Site Wound/Misc Culture Final (continued) 05/18/15858 1. MRSA (continued) M.I.C. RX --------- ------ Doxycycline - Deduced S * Minocycline - Deduced S Trimethoprim/Sulfamethoxazole <=10 S Vancomycin 1 S Imipenem-Deduced R * Ampicillin/Sulbactam-Deduced R Cefazolin-Deduced R 2. STREP GROUP G M.I.C. RX --------- ------ Chloramphenicol 4 S Ampicillin 0.12 S Penicillin 0.12 S Cefepime <=0.25 S * Cefotaxime 0.5 S Ceftriaxone 0.5 S Levofloxacin 1 S Azithromycin <=0.25 S Clindamycin 0.12 S Erythromycin <=0.06 S Tetracycline <=0.50 S Vancomycin 0.5 S * These antibiotics are not available in the [facility] Formulary Contact the Microbiology Department for any additional antibiotic reporting. * ML - MAIN LAB ([facility]) . END OF REPORT * ML=Testing performed at Main Lab DEPARTMENT OF PATHOLOGY, [address] [place] [address] Alessandro Lucero M.D. Director [facility] # [id number] 28 SEE RESULT BELOW Name: GLEN ARCE Joe : [address]: Jerilyn Chou NP Acct: [id number] Unit: [id number] AGE: 69 Location: [facility] Re05/15/15 SEX: M Status: REG REF SPEC: [id number] PATTI: 05/15/[address]: Jerilyn Chou NP REQ: [id number] RECD: 05/15/15 STATUS: MARIA ESTHER [facility] DR: Jesus Manuel Ga MD _ SOURCE: SKIN SCRAP SPDESC: ORDERED: Fungal Cult Skn Procedure Result Reported Site Fungal Cult Skin/Hair/Nails Final 06/11/15- 1242 ML Fungal Culture No Growth of Mycotic Organisms 4 weeks * ML - MAIN LAB (PSC1) . END OF REPORT * ML=Testing performed at Main Lab DEPARTMENT OF PATHOLOGY, [address] [place] [address] Alessandro Lucero M.D. Director [facility] # [id number] 29 consistent w/ previous results 30 FASTING 31 Because ethnic data is not always readily available, this report includes an eGFR for both -Americans and non- Americans. The National Kidney Disease Education Program (NKDEP) does not endorse the use of the MDRD equation for patients that are not between the ages of 18 and 70, are , have extremes of body size, muscle mass, or nutritional status, or are non- or non-. According to the National Kidney Foundation, irrespective of diagnosis, the stage of the disease is based on the level of kidney function: Stage Description GFR(mL/min/1.73 m(2)) 1 Kidney damage with normal or decreased GFR 90 2 Kidney damage with mild decrease in GFR 60-89 3 Moderate decrease in GFR 30-59 4 Severe decrease in GFR 15-29 5 Kidney failure <15 (or dialysis) 32 Reference Range and Interpretation: TnI (ng/mL) Interpretation Less Than 0.03 ng/mL Not supportive of diagnosis of AR 0.03 - 0.50 ng/mL Indeterminate: suggest serial studies if clinically indicated. Greater than 0.5 ng/mL Consistent with diagnosis of AR 33 Acute inflammation: >10.00 34 Please note: The following may produce a false positive D Dimer test: - Rheumatoid factor greater than 60 IU/ml - Plasma hemoglobin greater than 0.05 gm/dl - Bilirubin greater than 50 mg/dl - Lipids greater than 1000 mg/dl - FDP greater than 20 ug/ml 35 >100 to <200 pg/mL: likely compensated congestive heart failure (CHF) 200 to 400 pg/mL: likely moderate CHF >400 pg/mL: likely moderate to severe CHF AL HEART 36 RUN DATE: 06/10/14 [facility] LAB LIVE PAGE 1 RUN TIME: [address] [place] [address] Specimen Inquiry Name: GLEN ARCE : [address]: Franklin Roberts MD Acct: [id number] Unit: [id number] AGE: 68 Location: ED Re06/10/14 SEX: M Status: REG ER SPEC: [id number] PATTI: 06/10/14 [facility] DR: Franklin Roberts MD REQ: [id number] RECD: 06/10/14 STATUS: MARIA ESTHER [facility] DR: Jesus Manuel Ga MD _ SOURCE: [facility]: ORDERED: Rapid Flu A B Procedure Result Verified Site Rapid Influenza A B Antigen Final 06/10/14611 ML Organism 1 Negative Influenza A Organism 2 Negative Influenza B Antigen testing by enzyme immunoassay. Cell culture testing can be performed to confirm negative test results and to assist in detecting other viruses that can produce similar clinical symptoms. Please notify Microbiology Lab if further testing is desired. END OF REPORT * ML=Testing performed at Main Lab DEPARTMENT OF PATHOLOGY, [address] [place] [address] Alessandro Lucero M.D. Director [facility] # [id number] 37 RESULTS VERIFIED BY REPEAT ANALYSIS 38 RESULTS VERIFIED BY REPEAT ANALYSIS 39 RESULTS VERIFIED BY REPEAT ANALYSIS 40 Low risk: <1.00 Average risk: 1.00-3.00 High risk: >3.00 41 Test Performed by: [place] [address] [employer]: Jorge Pruitt III, M.D. 42 RESULT: No apparent monoclonal protein on serum electrophoresis. Test Performed by: [place] [address] [employer]: Jorge Pruitt III, M.D. 43 consistent w/ previous results 44 Because ethnic data is not always readily available, this report includes an eGFR for both -Americans and non- Americans. The National Kidney Disease Education Program (NKDEP) does not endorse the use of the MDRD equation for patients that are not between the ages of 18 and 70, are , have extremes of body size, muscle mass, or nutritional status, or are non- or non-. According to the National Kidney Foundation, irrespective of diagnosis, the stage of the disease is based on the level of kidney function: Stage Description GFR(mL/min/1.73 m(2)) 1 Kidney damage with normal or decreased GFR 90 2 Kidney damage with mild decrease in GFR 60-89 3 Moderate decrease in GFR 30-59 4 Severe decrease in GFR 15-29 5 Kidney failure <15 (or dialysis) 45 Reference Range and Interpretation: TnI (ng/mL) Interpretation Less Than 0.06 ng/mL Not supportive of diagnosis of AR 0.06 - 0.50 ng/mL Indeterminate: suggest serial studies if clinically indicated. Greater than 0.5 ng/mL Consistent with diagnosis of AR 46 1SST 47 RESULT GARCIA'D 48 result garcia'd 49 result reckd' 50 FINAL: NO GROWTH DAY 2 (<1,000 CFU/mL) Procedures Date Code Description Status 10/22/2018 51867 Remove Impact Cerumen Irrigati Completed 08/30/2018 52288 Finger Or Heel Stick Completed 08/19/2018 22320 Remove Impact Cerumen Irrigati Completed 06/30/2018 79780 Finger Or Heel Stick Completed 05/26/2018 71445 Finger Or Heel Stick Completed 04/26/2018 57835 Finger Or Heel Stick Completed 04/09/2018 59651 Remove Impact Cerumen Irrigati Completed 03/26/2018 02893 Finger Or Heel Stick Completed 02/24/2018 65220 Finger Or Heel Stick Completed 01/22/2018 80735 Finger Or Heel Stick Completed 01/07/2018 06103 Finger Or Heel Stick Completed 12/28/2017 89962 Finger Or Heel Stick Completed 12/24/2017 28432 Remove Impacted Cerumen Completed 12/24/2017 54396 Remove Impact Cerumen Irrigati Completed 12/17/2017 42234 Finger Or Heel Stick Completed 11/23/2017 71875 Finger Or Heel Stick Completed 10/23/2017 61299 Finger Or Heel Stick Completed 10/16/2017 07751 Remove Impact Cerumen Irrigati Completed 10/16/2017 81932 Remove Impacted Cerumen Completed 10/07/2017 66585 Finger Or Heel Stick Completed 09/07/2017 30146 Finger Or Heel Stick Completed 09/04/2017 52191 Remove Impact Cerumen Irrigati Completed 08/06/2017 14071 Remove Impact Cerumen Irrigati Completed 08/06/2017 25500 Finger Or Heel Stick Completed 07/10/2017 47922 Finger Or Heel Stick Completed 06/25/2017 66607 Remove Impact Cerumen Irrigati Completed 06/09/2017 74228 Finger Or Heel Stick Completed 05/21/2017 03301 Remove Impact Cerumen Irrigati Completed 05/07/2017 83328 Finger Or Heel Stick Completed 04/06/2017 54937 Finger Or Heel Stick Completed 03/19/2017 08739 Remove Impact Cerumen Irrigati Completed 02/26/2017 09450 Finger Or Heel Stick Completed 01/26/2017 98615 Finger Or Heel Stick Completed 01/13/2017 92714 Remove Impact Cerumen Irrigati Completed 12/25/2016 81696 Finger Or Heel Stick Completed 11/24/2016 27933 Finger Or Heel Stick Completed 11/11/2016 17547 Remove Impact Cerumen Irrigati Completed 09/09/2016 73970 Remove Impact Cerumen Irrigati Completed 08/28/2016 15929 Finger Or Heel Stick Completed 07/31/2016 58482 Finger Or Heel Stick Completed 07/08/2016 03970 Remove Impact Cerumen Irrigati Completed 06/30/2016 60587 Finger Or Heel Stick Completed 06/16/2016 56606 Finger Or Heel Stick Completed 05/17/2016 04310 Finger Or Heel Stick Completed 05/06/2016 10932 Remove Impacted Cerumen Completed 04/17/2016 09895 Finger Or Heel Stick Completed 03/17/2016 18745 Finger Or Heel Stick Completed 02/28/2016 63089 Remove Impacted Cerumen Completed 02/15/2016 70327 Finger Or Heel Stick Completed 01/08/2016 07133 Finger Or Heel Stick Completed 12/25/2015 93306 Remove Impacted Cerumen Completed 12/18/2015 56307 Finger Or Heel Stick Completed 11/27/2015 04125 Finger Or Heel Stick Completed 11/12/2015 76369 Finger Or Heel Stick Completed 11/01/2015 77541 Finger Or Heel Stick Completed 10/23/2015 83833 Remove Impacted Cerumen Completed 10/23/2015 41676 Remove Impact Cerumen Irrigati Completed 10/04/2015 04293 Finger Or Heel Stick Completed 09/04/2015 07331 Finger Or Heel Stick Completed 08/21/2015 10238 Remove Impact Cerumen Irrigati Completed 08/21/2015 34414 Remove Impacted Cerumen Completed 08/06/2015 08444 Finger Or Heel Stick Completed 07/05/2015 60755 Finger Or Heel Stick Completed 06/12/2015 60704 Remove Impacted Cerumen Completed 06/12/2015 12596 Remove Impact Cerumen Irrigati Completed 06/04/2015 54089 Finger Or Heel Stick Completed 05/02/2015 34150 Finger Or Heel Stick Completed 04/02/2015 94379 Finger Or Heel Stick Completed 03/27/2015 01641 Remove Impacted Cerumen Completed 03/12/2015 43833 Finger Or Heel Stick Completed 02/26/2015 57790 Finger Or Heel Stick Completed 02/21/2015 79088 Finger Or Heel Stick Completed 01/30/2015 13272 Remove Impacted Cerumen Completed 01/19/2015 17550 Finger Or Heel Stick Completed 01/15/2015 70475 Finger Or Heel Stick Completed 12/27/2014 71914 Finger Or Heel Stick Completed 12/18/2014 12189 Finger Or Heel Stick Completed 11/28/2014 66758 Remove Impacted Cerumen Completed 11/27/2014 11621 Finger Or Heel Stick Completed 11/13/2014 90823 Finger Or Heel Stick Completed 11/06/2014 24286 Finger Or Heel Stick Completed 11/03/2014 38513 Finger Or Heel Stick Completed 10/16/2014 68451 Finger Or Heel Stick Completed 10/09/2014 35509 Finger Or Heel Stick Completed 09/26/2014 39323 Remove Impacted Cerumen Completed 09/18/2014 14771 Finger Or Heel Stick Completed 08/28/2014 80415 Finger Or Heel Stick Completed 08/07/2014 50159 Finger Or Heel Stick Completed 07/25/2014 72590 Remove Impacted Cerumen Completed 07/24/2014 11590 Finger Or Heel Stick Completed 07/17/2014 81192 Finger Or Heel Stick Completed 07/14/2014 72372 Finger Or Heel Stick Completed 07/11/2014 81669 Finger Or Heel Stick Completed 06/29/2014 41565 Finger Or Heel Stick Completed 06/27/2014 64046 Finger Or Heel Stick Completed 06/13/2014 22409 Finger Or Heel Stick Completed 06/07/2014 72043 Finger Or Heel Stick Completed 06/02/2014 40571 Pulse Oximetry Completed 05/16/2014 86475 Finger Or Heel Stick Completed 04/14/2014 61752 Finger Or Heel Stick Completed 03/14/2014 06543 Remove Impacted Cerumen Completed 03/14/2014 61775 Finger Or Heel Stick Completed 02/27/2014 16247 Electrocardiogram Complete Completed 02/10/2014 15610 Finger Or Heel Stick Completed 01/31/2014 21610 Finger Or Heel Stick Completed 01/12/2014 45016 Remove Impacted Cerumen Completed 12/29/2013 76719 Finger Or Heel Stick Completed 12/19/2013 01400 Finger Or Heel Stick Completed 11/21/2013 52593 Finger Or Heel Stick Completed 11/07/2013 43761 Finger Or Heel Stick Completed 10/10/2013 93317 Finger Or Heel Stick Completed 10/03/2013 84335 Finger Or Heel Stick Completed 10/01/2013 58314 Pulse Oximetry Completed 09/02/2013 06366 Remove Impacted Cerumen Completed 09/01/2013 46571 Finger Or Heel Stick Completed 08/04/2013 48344 Finger Or Heel Stick Completed 07/05/2013 16687 Finger Or Heel Stick Completed 06/10/2013 86659 Remove Impacted Cerumen Completed 06/06/2013 12890 Finger Or Heel Stick Completed 05/16/2013 96077 Finger Or Heel Stick Completed 05/02/2013 38766 Finger Or Heel Stick Completed 04/22/2013 29416 Finger Or Heel Stick Completed 04/12/2013 76878 Finger Or Heel Stick Completed 03/31/2013 02173 Finger Or Heel Stick Completed 03/24/2013 90952 Finger Or Heel Stick Completed 03/21/2013 14430 Finger Or Heel Stick Completed 03/19/2013 09174 Finger Or Heel Stick Completed 03/03/2013 63943 Remove Impacted Cerumen Completed 11/19/2012 84949 Remove Impacted Cerumen Completed 08/06/2012 95926 Remove Impacted Cerumen Completed 04/02/2012 92824 Remove Impacted Cerumen Completed 02/12/2012 80584 Remove Impacted Cerumen Completed 12/25/2011 54904 Remove Impacted Cerumen Completed 10/20/2011 74345 Pulse Oximetry Completed 04/30/2011 05575 Pulse Oximetry Completed 01/21/2011 29261 Remove Impacted Cerumen Completed 01/11/2010 51165 Remove Impacted Cerumen Completed Encounters Type Date Location Provider Dx Diagnosis Office Visit 08/19/2018 [facility] Office Lulu Simmons H61.23 Impacted cerumen , 8:30a Vale Turpin bilateral Office Visit 08/02/2018 [facility] Office Jesus Manuel Ramirez K52.89 Other specified 10:30a Vale Ga noninfective gastroenteritis and colitis E83.42 Hypomagnesemia 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 Office Visit 04/09/2018 10:20a [facility] Office Lulu Simmons ZLaith Encounter for Vale Turpin immunization H61.23 Impacted cerumen, bilateral L21.8 Other seborrheic dermatitis Office Visit 12/24/2017 3:40p [facility] Office Lulu Simmons H61.23 Vale Cohen, bilateral Office Visit 10/16/2017 11:00a [facility] Office Lulu Simmons H61.23 Vale Cohen, bilateral I10 Essential (primary) hypertension Office Visit 09/04/2017 11:20a [facility] Office Lulu Simmons H61.23 Vale Cohen, bilateral Office Visit 08/06/2017 11:20a [facility] Office Lulu Simmons H61.23 Yary Turpin M.D. 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 Office Visit 06/25/2017 8:30a [facility] Lulu Simmons H61.23 Impacted Vale Turpin, bilateral Office Visit 05/21/2017 8:30a [facility] Lulu Simmons H61.23 Impacted Vale Turpin, bilateral L21.8 Other seborrheic dermatitis Office Visit 03/19/2017 8:30a [facility] Office Lulu Simmons H61.23 Impacted Vale Turpin, bilateral Z23 Encounter for immunization Office Visit 01/13/2017 [facility] Lulu Simmons H61.23 Impacted chapis, 3:00p Office Vale Turpin bilateral Office Visit 11/11/2016 [facility] Lulu Haque1.23 Impacted chapis, 3:00p Office Briana Turpin. 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 I25.10 Athscl heart disease of [place] coronary artery w/o ang pctrs I47.1 Supraventricular tachycardia R94.5 Abnormal results of liver function studies Office Visit 09/09/2016 3:20p [facility] Office Lulu Simmons H61.23 Impacted Vale Turpin, bilateral L21.8 Other seborrheic dermatitis Office Visit 07/08/2016 9:40a [facility] Office Lulu Simmons H61.23 Impacted Vale Turpin, bilateral Office Visit 05/06/2016 3:20p [facility] Office Lulu Simmons H61.23 Impacted Vale Turpin, bilateral J06.9 Acute upper respiratory infection, unspecified Office Visit 12/25/2015 3:20p [facility] Office Lulu Simmons H61.23 Vale Cohen, bilateral Office Visit 10/23/2015 9:40a [facility] Office Lulu Simmons H61.23 Impacted Vale Turpin, bilateral Office Visit 08/21/2015 3:20p [facility] Office Lulu Simmons H61.23 Impacted Vale Turpin, bilateral Office Visit 06/12/2015 9:40a [facility] Lulu Simmons H61.23 Impacted Vale Turpin cerdamian, bilateral Office Visit 03/27/2015 9:40a [facility] Lulu Simmons H61.23 Impacted Vale Turpin cerumejean, bilateral Office Visit 01/30/2015 9:40a [facility] Office Luul Simmons 380.4 Impacted Chapis Turpin M.D. 690.18 Seborrheic Dermatitis Other Office Visit 11/28/2014 3:00p [facility] Lulu Simmons 380.4 Impacted Vael Turpin Office Visit 09/26/2014 2:40p [facility] Lulu Simmons 380.4 Impacted Vale Turpin Office Visit 07/25/2014 3:00p [facility] Office Lulu Simmons 380.4 Impacted Vale Turpin 389.9 Hearing Loss Unspec Office Visit 06/02/2014 8:00a [facility] Office Jesus Manuel Ramirez 782.1 Rash & Other Vale Ga Nonspec Skin Eruption 786.2 Cough Office Visit 05/16/2014 [facility] Lulu Simmons V58.61 Anticoagulants Long 9:40a Office Vale Turpin Term (Current) Use Encounter 380.4 Impacted Chapis 690.18 Seborrheic Dermatitis Other Office 03/14/2014 [facility] Lulu Simmosn V04.81 Need For Prophylactic Visit 2:40p Office Vale Turpin Vaccination & Inoculation/Influenza 380.4 Impacted Chapis V58.61 Anticoagulants Fpc (Current) Use Encounter 453.9 Embolism & Thrombosis Venous Unspec Site Office Visit 02/27/2014 9:20a [facility] Office Jesus Manuel Ga, 786.59 Pain Chest M.D. Other 724.5 Backache Unspec 272.2 Hyperlipidemia Mixed 599.72 Microscopic Hematuria Office Visit 01/12/2014 3:20p [facility] Office Lulu Simmons 380.4 Impacted Vale Turpin Cerdamian Office Visit 10/17/2013 8:50a [facility] Office Jesus Manuel Ga, 287.0 Purpura M.D. Allergic V58.61 Anticoagulants Time Study Analyst (Current) Use Encounter 453.9 Embolism & Thrombosis Venous Unspec Site Office Visit 10/01/2013 9:30a [facility] Jesus Manuel Ramirez 782.1 Rash & Other Nonspec Office Vale Ga Skin Eruption Office Visit 09/02/2013 10:50a [facility] Lulu Souza.4 Impacted Chapis Office Vale Turpin Office Visit 03/19/2013 9:15a [facility] Eda V58.61 Anticoagulants Long Office [facility], Term (Current) Use Afnp-C Encounter 453.9 Embolism & Thrombosis Venous Unspec Site Office Visit 03/03/2013 1:40p [facility] Office Lulu Souza.4 Yary Turpin M.D. Office Visit 01/18/2013 8:00a [facility] Office Jesus Manuel Ramirez 401.1 Hypertension Vale Ga Benign 414.01 Coronary Atherosclerosis [place] 272.2 Hyperlipidemia Mixed 785.0 Tachycardia Unspec Office Visit 11/19/2012 3:40p [facility] Office Lulu Souza.4 Yary Turpin M.D. Office Visit 08/06/2012 2:40p [facility] Office Lulu Souza.4 Yary Turpin M.D. Office Visit 2012 8:00a [facility] Office Jesus Manuel Ramirez 401.1 Daniel Ga M.D. Benign 414.01 Coronary Atherosclerosis [place] 272.2 Hyperlipidemia Mixed 786.9 Respiratory & Chest Symptoms Other V76.44 Screening For Malig Yusuf Prostate V76.51 Screening For Malignant Neoplasms Colon Office Visit 04/02/2012 3:30p [facility] Office Lulu Souza.4 Yary Turpin M.D. Cerdamian v04.81 Need For Prophylactic Vaccination & Inoculation/Influenza Office Visit 02/12/2012 10:00a [facility] Office Lulu Souza.4 Yary Turpin M.D. Office Visit 01/19/2012 8:00a [facility] Office Jesus Manuel Ramirez 401.1 Daniel Ga M.D. Benign 414.01 Coronary Atherosclerosis [place] 272.2 Hyperlipidemia Mixed Office Visit 12/25/2011 9:40a [facility] Office Lulu Souza.4 Yary Turpin M.D. Office Visit 10/20/2011 11:00a [facility] Office Jesus Manuel Ramirez 786.9 Respiratory & Vale Ga Chest Symptoms Other Office Visit 07/09/2011 8:00a [facility] Jesus Manuel Ramirez 401.1 Daniel Ga M.D. Benign 414.01 Coronary Atherosclerosis [place] 785.0 Tachycardia Unspec V76.44 Screening For Malig Yusuf Prostate Office Visit 04/30/2011 2:30p [facility] Bao Ramirez 465.9 CHRISTAL Perez M.D. Respiratory Infections Acute Unspec Sites 401.1 Hypertension Benign 414.01 Coronary Atherosclerosis [place] Office Visit 01/21/2011 8:00a [facility] Jesus Manuel Ramirez 401.1 Hypertension Sushant Ga M.D. 272.2 Hyperlipidemia Mixed 414.01 Coronary Atherosclerosis [place] 785.0 Tachycardia Unspec 380.4 Impacted Cerumen Office Visit 09/18/2010 8:00a [facility] Office Jesus Manuel Ramirez 401.1 Hypertension Sushant Ga M.D. 272.2 Hyperlipidemia Mixed 414.01 Coronary Atherosclerosis [place] 785.0 Tachycardia Unspec V03.82 Streptococcus Pneumoniae Vaccination Spec Other V76.51 Screening For Malignant Neoplasms Colon Office Visit 05/20/2010 8:00a [facility] Office Jesus Manuel Ramirez 401.1 Hypertension Sushant Ga M.D. 272.2 Hyperlipidemia Mixed 414.01 Coronary Atherosclerosis [place] 785.0 Tachycardia Unspec V76.44 Screening For Malig Yusuf Prostate V03.82 Streptococcus Pneumoniae Vaccination Spec Other V76.41 Screening Malignant Neoplasm Rectum Office Visit 01/15/2010 8:00a [facility] Office Jesus Manuel AMikala 401.1 Hypertension Sushant Ga M.D. 272.2 Hyperlipidemia Mixed 414.01 Coronary Atherosclerosis [place] 785.0 Tachycardia Unspec Office Visit 01/11/2010 11:20a [facility] Lulu LMikala 380.4 Impacted Vale Turpin Cerumen 461.9 Sinusitis Acute Unspec Office Visit 10/15/2009 8:00a [facility] Jesus Manuel Ramirez 401.1 Hypertension Sushant Ga M.D. 272.2 Hyperlipidemia Mixed 414.01 Coronary Atherosclerosis [place] 785.0 Tachycardia Unspec Office Visit 08/09/2009 10:40a [facility] Lulu Simmons 461.0 Sinusitis Acute Vale Turpin Maxillary 380.4 Impacted Cerumen 401.1 Hypertension Benign 414.01 Coronary Atherosclerosis [place] Office Visit 07/16/2009 2:50p [facility] Office Jesus Manuel Ramirez 401.1 Hypertension Sushant Ga M.D. 272.2 Hyperlipidemia Mixed 414.01 Coronary Atherosclerosis [place] 785.0 Tachycardia Unspec Office Visit 05/08/2009 10:00a [facility] Office Jesus Manuel Ramirez 272.2 Hyperlipidemia Mixed Vale Ga 401.1 Hypertension Benign 414.01 Coronary Atherosclerosis [place] 785.0 Tachycardia Unspec V76.44 Screening For Malig Yusuf Prostate V76.51 Screening For Malignant Neoplasms Colon 599.72 Microscopic Hematuria Plan of Treatment Future Appointment(s):12/23/2018 10:40 am - Lulu Turpin M.D. at [facility] Azefqt4011/05/2018 9:15 am - Jesus Manuel Ga M.D. at [facility] Eryyjx4010/22/2018 - Lulu Turpin M.D.H61.22 Impacted cerumen, left earComments:flushed to clear.L30.9 Dermatitis, unspecifiedComments:continue lotrisone to dry skin on ears.AllComments:Medication Management Patient Understands medications he's taking? Yes No Are there Barriersto Adherence? Yes No Has the patient been asked about herbal supplements and therapies, and OTC meds? Yes No
--- NOTE | 2018-11-09 14:02 | ED ---
Skin Complaint - HPI Summary HPI Summary: Patient is a 73-year-old male who presents to the emergency department for a tick bite to his left arm times one week. Patient states he was camping one week ago when he obtain tick to left arm. States he tried removed tick was unable to and hoped it would eventually fall out. Patient denies associated symptoms of fever, chills, rash, headache, joint pain. Symptoms are mild in severity. No current modifying factors. - History of Current Complaint Chief Complaint: EDAnimalBite Time Seen by Provider: 11/09/18 08:54 Stated Complaint: TICK IN LEFT SHOULDER Hx Obtained From: Patient Pain Intensity: 0 Pain Scale Used: 0-10 Numeric - Additional Pertinent History Primary Care Physician: [id number] - Allergy/Home Medications Allergies/Adverse Reactions: Allergies Allergy/AdvReac Type Severity Reaction Status Date / Time lisinopril Allergy Rash Verified 11/09/18 08:51 losartan Allergy Rash Verified 11/09/18 08:51 niacin Allergy Flushing Verified 11/09/18 08:51 [From [facility] Extended-Release] PMH/Surg Hx/FS Hx/Imm Hx Previously Healthy: Yes Endocrine/Hematology History: Denies: Hx Diabetes Cardiovascular History: Reports: Hx Auto Implanted Cardiovert Defib, Hx Cardiac Arrest, Hx Congestive Heart Failure, Hx Coronary Artery Disease, Hx Deep Vein Thrombosis, Hx Hypercholesterolemia, Hx Hypertension, Hx Myocardial Infarction, Hx Pacemaker/ICD Denies: Hx Angina Respiratory History: Reports: Hx Pneumonia Denies: Hx Asthma History: Reports: Other Problems/Disorders - bilateral renal emboli Denies: Hx Renal Disease Musculoskeletal History: Reports: Hx Arthritis, Hx Back Problems Sensory History: Reports: Hx Contacts or Glasses Denies: Hx Hearing Aid Opthamlomology History: Reports: Hx Contacts or Glasses - Surgical History Surgery Procedure, Year, and Place: Stents X4; rhinoplasty defibulator-2013 Hx Anesthesia Reactions: No - Immunization History Date of Influenza Vaccine: 03/2018 Infectious Disease History: No Infectious Disease History: Denies: Hx of Known/Suspected MRSA, Traveled Outside the [place] in Last 30 Days - Family History Known Family History: Positive: Cardiac Disease, Diabetes, Non-Contributory - Social History Occupation: Retired Lives: With Family Alcohol Use: None Substance Use Type: Reports: None Smoking Status (MU): Former Smoker Review of Systems Constitutional: Negative Negative: Fever, Chills Musculoskeletal: Negative Negative: Arthralgia Positive: Other - tick bite. Negative: Rash Neurological: Negative Negative: Headache All Other Systems Reviewed And Are Negative: Yes Physical Exam Triage Information Reviewed: Yes Vital Signs On Initial Exam: Initial Vitals Temp Pulse Resp BP Pulse Ox 97.9 F 67 16 146/81 95 11/09/18 08:49 11/09/18 08:49 11/09/18 08:49 11/09/18 08:49 11/09/18 08:49 Vital Signs Reviewed: Yes Appearance: Positive: Well-Appearing - Pt. sitting on side of bed in NAD. Skin: Positive: Warm, Dry, Other - Embedded tick to left upper anterior arm. Mild surrouding erythema. No erythema migrans. Head/Face: Positive: Normal Head/Face Inspection Eyes: Positive: Normal, EOMI, SHEFALI Dental: Negative: Foreign body Neck: Positive: Supple Neurological: Positive: Normal, CN Intact II-III Psychiatric: Positive: Normal, Affect/Mood Appropriate Procedures - Procedure Summary Procedure Summary: Tick removal: Tick to left upper arm as he was easily removed in its entirety with a tick twister. Diagnostics - Vital Signs Vital Signs Temp Pulse Resp BP Pulse Ox 11/09/18 09:09 96.9 F 69 18 119/71 93 11/09/18 08:49 97.9 F 67 16 146/81 95 - Laboratory Lab Statement: Any lab studies that have been ordered have been reviewed, and results considered in the medical decision making process. Course/Dx - Course Course Of Treatment: Patient presenting with a tick to left upper arm times one week. No signs of infection on exam. Was easily removed. We'll treat with 10 days of doxycycline given length of tick. Advised patient to follow up with his PCP for Lyme testing in the next few weeks. Will also need Coumadin monitored given antibiotic. Patient understands and agrees with plan. - Differential Diagnoses - Skin Complaint Differential Diagnoses: Abscess, Cellulitis, Tick Born Illness - Diagnoses Provider Diagnoses: Tick bite Discharge - Sign-Out/Discharge Documenting (check all that apply): Patient Departure Patient Received Moderate/Deep Sedation with Procedure: No - Discharge Plan Condition: Improved Disposition: HOME Prescriptions: DOXYcycline CAP(*) [DOXYcycline 100MG CAP(*)] 100 mg PO BID #20 cap Patient Education Materials: Tick Bite (ED) Referrals: Jesus Manuel Ga MD [Primary Care Provider] - Additional Instructions: Schedule a follow up appointment with your PCP for Lyme testing and coumadin level recheck given antibiotics Take doxycyline as directed Keep wound clean and dry Return to ER if symptoms change or worsen - Billing Disposition and Condition Condition: IMPROVED Disposition: Home
== END 2018-11-09 09:09 | disposition home or self-care (01) ==
LOC: ED 08:46
DX: S40.262A Insect bite (nonvenomous) of left shoulder, initial encounter (principal); W57.XXXA Bitten or stung by nonvenomous insect and other nonvenomous arthropods, initial encounter; Y92.9 Unspecified place or not applicable; Z95.810 Presence of automatic (implantable) cardiac defibrillator; I50.9 Heart failure, unspecified; I25.10 Atherosclerotic heart disease of native coronary artery without angina pectoris; Z86.718 Personal history of other venous thrombosis and embolism; E78.00 Pure hypercholesterolemia, unspecified; I10 Essential (primary) hypertension; I25.2 Old myocardial infarction; Z87.891 Personal history of nicotine dependence
CPT/HCPCS: 99282

== ENCOUNTER 2021-01-21 21:28 | Inpatient (IN) ==
[2021-01-21] MEDS ORDERED: nitroGLYCERIN DRIP 25,000 MCG/250 ML BTL ONE (21:35)
[2021-01-21] MEDS ORDERED: nitroGLYCERIN DRIP 25,000 MCG/250 ML BTL IV SCH (22:00)
[2021-01-21 22:26] LABS: ABS Basophils 0.1 10^3/ul (0-0.2); ABS Eosinophils 0.6 10^3/ul (0-0.6); ABS Lymphocytes 2.6 10^3/ul (1.0-4.8); ABS Monocytes 0.7 10^3/ul (0-0.8); ABS Neutrophils 4.7 10^3/ul (1.5-7.7); Eosinophil % 7.3 %; Hematocrit 44 % (42-52); Lymphocyte % 29.7 %; Mean Corpuscular HGB Conc 34 g/dL (31-36); Mean Corpuscular Hemoglobin 31 pg (27-31); Mean Corpuscular Volume 91 fL (80-94); Mean Platelet Volume 9.1 fL (7.4-10.4); Nucleated Red Blood Cells % 0.1; Platelet Count 232 10^3/uL (150-450); Red Blood Count 4.87 10^6 /uL (4.18-5.48); Red Cell Distribution Width 15 % (10-15); White Blood Count 8.7 10^3/uL (3.5-10.8)
[2021-01-21 22:35] LABS: Activated Partial Thrombo Time 42.1 seconds (26.0-38.0)
[2021-01-21 22:43] LABS: ALT 23 U/L (7-52); AST 28 U/L (13-39); Albumin 4.3 g/dL (3.2-5.2); Albumin/Globulin Ratio 1.2 (1-3); Alkaline Phosphatase 24 U/L (35-149); Anion Gap 11 mmol/L (2-11); Blood Urea Nitrogen 20 mg/dL (6-24); CO2 Carbon Dioxide 23 mmol/L (22-32); Calcium 8.9 mg/dL (8.6-10.3); Chloride 98 mmol/L (101-111); EGFR African American 78.7 (>60); EGFR Non-African American 65.1 (>60); Globulin 3.6 g/dL (2-4); Glucose 129 mg/dL (70-100); Magnesium 1.7 mg/dL (1.9-2.7); Potassium 3.7 mmol/L (3.5-5.0); Sodium 132 mmol/L (135-145); Total Protein 7.9 g/dL (6.4-8.9)
[2021-01-21] MEDS ORDERED: Furosemide 40 mg/4 ml IV VIAL IV SLOW PU ONE ×2 (22:45→23:07)
[2021-01-21 22:57] LABS: Troponin I 0.03 ng/mL (<0.03)
[2021-01-21] MEDS ORDERED: Magnesium Sulfate 2 gm BAG 2 GM/50 ML BAG IVPB ONE (23:15)
[2021-01-21 23:29] LABS: PCO2 Arterial 33 mmHg (35-45); PO2 Arterial 237 mmHg (80-100)
[2021-01-21] MEDS ORDERED: Warfarin per PHARMACY **NOTE FOLLOW UP SCH (23:45)
[2021-01-22] MEDS ORDERED: Potassium Chlor 10 meq TAB PO ONE (00:47)
[2021-01-22 02:20] LABS: Troponin I 0.14 ng/mL (<0.03)
[2021-01-22 04:32] LABS: ABS Basophils 0.1 10^3/ul (0-0.2); ABS Eosinophils 0.2 10^3/ul (0-0.6); ABS Lymphocytes 2.1 10^3/ul (1.0-4.8); ABS Monocytes 0.8 10^3/ul (0-0.8); ABS Neutrophils 5.6 10^3/ul (1.5-7.7); Eosinophil % 2.3 %; Hematocrit 40 % (42-52); Hemoglobin 13.8 g/dL (14.0-18.0); Lymphocyte % 23.9 %; Mean Corpuscular HGB Conc 35 g/dL (31-36); Mean Corpuscular Hemoglobin 31 pg (27-31); Mean Corpuscular Volume 89 fL (80-94); Nucleated Red Blood Cells % 0.1; Platelet Count 213 10^3/uL (150-450); Red Blood Count 4.46 10^6 /uL (4.18-5.48); Red Cell Distribution Width 14 % (10-15); White Blood Count 8.8 10^3/uL (3.5-10.8)
[2021-01-22 04:39] LABS: INR 2.95 (0.86-1.15)
[2021-01-22 04:48] LABS: Anion Gap 8 mmol/L (2-11); Blood Urea Nitrogen 17 mg/dL (6-24); CO2 Carbon Dioxide 25 mmol/L (22-32); Calcium 8.6 mg/dL (8.6-10.3); Chloride 100 mmol/L (101-111); EGFR African American 104.6 (>60); EGFR Non-African American 86.5 (>60); Glucose 103 mg/dL (70-100); Potassium 3.5 mmol/L (3.5-5.0); Sodium 133 mmol/L (135-145)
[2021-01-22 05:39] LABS: Troponin I 0.24 ng/mL (<0.03)
[2021-01-22] MEDS ORDERED: KCL 10 MEQ/50 ML IVPREMIX 10 MEQ/50 ML BAG IV SCH (06:00)
[2021-01-22] MEDS ORDERED: Potassium Chlor 20 meq TAB.ER PO ONE (06:26)
[2021-01-22] MEDS: CMC:Fenofibrate 145 mg TAB (NF) PO SCH (07:59)
[2021-01-22] MEDS: Aspirin EC 81 mg TAB.EC (enteric coated) PO SCH (07:59)
[2021-01-22] MEDS: Furosemide 20 mg/2 ml IV VIAL IV SLOW PU SCH (08:02)
[2021-01-22 08:22] LABS: Phosphorus 3.1 mg/dL (2.5-5.0)
[2021-01-22] MEDS ORDERED: Perflutren Lipid Microsphere 3 ML VIAL ONE (08:47)
[2021-01-22] MEDS: KCL 10 MEQ/50 ML IVPREMIX 10 MEQ/50 ML BAG IV SCH (09:28)
[2021-01-22 14:44] LABS: Cholesterol 159 mg/dL; HDL Cholesterol 23.2 mg/dL; LDL Cholesterol 89 mg/dL; Triglycerides 235 mg/dL
[2021-01-22] MEDS ORDERED: Warfarin DAILY REMINDER **NOTE FOLLOW UP SCH (17:00)
[2021-01-22] MEDS ORDERED: Warfarin per PHARMACY **NOTE FOLLOW UP SCH (17:00)
[2021-01-22 17:15] LABS: Troponin I 0.12 ng/mL (<0.03)
[2021-01-23 05:32] LABS: INR 2.46 (0.86-1.15)
[2021-01-23 05:38] LABS: Calcium 8.7 mg/dL (8.6-10.3); EGFR Non-African American 90.1 (>60); Phosphorus 2.8 mg/dL (2.5-5.0); Potassium 3.8 mmol/L (3.5-5.0)
[2021-01-23] MEDS: CMC:Fenofibrate 145 mg TAB (NF) PO SCH (08:40)
[2021-01-23] MEDS: Aspirin EC 81 mg TAB.EC (enteric coated) PO SCH (08:40)
[2021-01-23] MEDS: Furosemide 20 mg/2 ml IV VIAL IV SLOW PU SCH (08:40)
[2021-01-23] MEDS ORDERED: Potassium Chlor 20 meq TAB.ER PO ONE (09:49)
[2021-01-23] MEDS ORDERED: Furosemide 20 mg/2 ml IV VIAL IV ONE (09:49)
[2021-01-23 17:11] LABS: INR 2.25 (0.86-1.15)
[2021-01-24 05:04] LABS: INR 1.92 (0.86-1.15)
[2021-01-24 05:42] LABS: CO2 Carbon Dioxide 22 mmol/L (22-32); Calcium 9.1 mg/dL (8.6-10.3); Chloride 102 mmol/L (101-111); Magnesium 1.8 mg/dL (1.9-2.7); Sodium 135 mmol/L (135-145)
[2021-01-24 05:48] LABS: Blood Urea Nitrogen 18 mg/dL (6-24); EGFR African American 117.1 (>60); EGFR Non-African American 96.8 (>60); Glucose 95 mg/dL (70-100)
[2021-01-24 06:40] LABS: Anion Gap 11 mmol/L (2-11)
[2021-01-24] MEDS ORDERED: Magnesium Sulfate IV 3 GM in NS 0.9% 100 ml BAG 100 ML IVPB ONE (07:27)
[2021-01-24] MEDS: Furosemide 20 mg/2 ml IV VIAL IV SLOW PU SCH (08:39)
[2021-01-24] MEDS: Aspirin EC 81 mg TAB.EC (enteric coated) PO SCH (08:39)
[2021-01-24] MEDS: CMC:Fenofibrate 145 mg TAB (NF) PO SCH (08:48)
[2021-01-24] MEDS ORDERED: KCL 10 MEQ/50 ML IVPREMIX 10 MEQ/50 ML BAG IV ONE (10:00)
[2021-01-24 12:00] LABS: INR 1.56 (0.86-1.15)
[2021-01-24] MEDS ORDERED: fentaNYL 100 mcg/2 ml 50 MCG/ML VIAL ONE (13:52)
[2021-01-24] MEDS ORDERED: Midazolam 5 mg/5 ml VIAL 1 mg/ml 5 ml VIAL (5 mg) ONE (13:52)
[2021-01-24] MEDS ORDERED: Heparin 1,000 UNIT/ML 10 ml (10,000 UNITS) CATHLAB/DIALYSIS ONE (13:52)
[2021-01-24] MEDS ORDERED: VERAPAMIL 2.5 MG/ML 2 ML VIAL ** 5 mg/2 ml ONE (13:52)
[2021-01-24] MEDS ORDERED: Iohexol 350 (CONTRAST) 200 ML MDV IV ONE (13:53)
[2021-01-24] MEDS ORDERED: nitroGLYCERIN DRIP 25,000 MCG/250 ML BTL ONE (13:53)
[2021-01-24] MEDS ORDERED: Heparin 2 UNITS/ML 1000 mls 2,000 ML IV ONE (13:53)
[2021-01-24] MEDS ORDERED: Lidocaine 1% VIAL 10 MG/ML VIAL ONE (13:53)
[2021-01-24] MEDS ORDERED: NS 0.9% 1000 ml BAG 1,000 ML IV SCH (15:00)
[2021-01-24 18:27] VITALS: BP 102/66
== END 2021-01-24 18:31 | disposition home or self-care (01) | DRG 286 ==
LOC: ED 21:28 → ICU 23:07
PROVIDERS: ADMIT Internal Medicine; ATTEND Surgery Surgical Critical Care

== ENCOUNTER 2021-08-29 17:57 | Observation (INO) ==
[2021-08-29 18:26] LABS: Hematocrit 44 % (42-52); Mean Corpuscular HGB Conc 35 g/dL (31-36); Mean Corpuscular Hemoglobin 31 pg (27-31); Mean Corpuscular Volume 89 fL (80-94); Mean Platelet Volume 10.2 fL (7.4-10.4); Platelet Count 190 10^3/uL (150-450); Red Blood Count 4.86 10^6 /uL (4.18-5.48); Red Cell Distribution Width 15 % (10-15); White Blood Count 7.8 10^3/uL (3.5-10.8)
[2021-08-29 18:40] LABS: INR 2.76 (0.86-1.15)
[2021-08-29 19:09] LABS: Albumin 4.4 g/dL (3.2-5.2); Albumin/Globulin Ratio 1.6 (1-3); Calcium 10.6 mg/dL (8.6-10.3); Globulin 2.8 g/dL (2-4); Potassium 4.4 mmol/L (3.5-5.0); Total Bilirubin 0.4 mg/dL (0.2-1.0); Total Protein 7.2 g/dL (6.4-8.9); eGFR CKD-EPI 68.4 (>60)
[2021-08-29] MEDS ORDERED: Nitroglycerin 0.3 mg TAB SL ONE (19:14)
[2021-08-29 19:28] LABS: ABS Eosinophils 0.6 10^3/ul (0-0.6); ABS Lymphocytes 3.7 10^3/ul (1.0-4.8); ABS Monocytes 0.9 10^3/ul (0-0.8); ABS Neutrophils 2.7 10^3/ul (1.5-7.7); Lymphocyte % 46.7 %
[2021-08-29 20:00] LABS: High Sensitivity Troponin 1 Hr 22 pg/mL (<20)
[2021-08-30] MEDS ORDERED: Furosemide 40 mg/4 ml IV VIAL IV SLOW PU ONE (01:12)
[2021-08-30] MEDS ORDERED: Warfarin per PHARMACY **NOTE FOLLOW UP SCH (02:00)
[2021-08-30 05:55] LABS: ABS Basophils 0.2 10^3/ul (0-0.2); ABS Eosinophils 0.5 10^3/ul (0-0.6); ABS Monocytes 0.7 10^3/ul (0-0.8); ABS Neutrophils 3.1 10^3/ul (1.5-7.7); Hematocrit 45 % (42-52); Hemoglobin 15.2 g/dL (14.0-18.0); Lymphocyte % 39.8 %; Mean Corpuscular HGB Conc 34 g/dL (31-36); Mean Corpuscular Hemoglobin 31 pg (27-31); Mean Corpuscular Volume 90 fL (80-94); Mean Platelet Volume 10.1 fL (7.4-10.4); Platelet Count 183 10^3/uL (150-450); Red Blood Count 4.96 10^6 /uL (4.18-5.48); Red Cell Distribution Width 15 % (10-15); White Blood Count 7.5 10^3/uL (3.5-10.8)
[2021-08-30 06:02] LABS: INR 2.86 (0.86-1.15)
[2021-08-30 06:14] LABS: Magnesium 1.8 mg/dL (1.9-2.7); Potassium 3.6 mmol/L (3.5-5.0); eGFR CKD-EPI 78.5 (>60)
[2021-08-30] MEDS ORDERED: Perflutren Lipid Microsphere 3 ML VIAL ONE (07:59)
[2021-08-30] MEDS ORDERED: CMCS: Fenofibrate 145 mg TAB (NF) PO SCH (09:00)
[2021-08-30] MEDS ORDERED: Potassium Chlor 20 meq TAB.ER PO SCH (09:00)
[2021-08-30] MEDS ORDERED: Aminophylline 25 MG/ML VIAL ONE (10:54)
[2021-08-30] MEDS ORDERED: Regadenoson 0.4 MG/5 ML SYRINGE ONE (10:54)
[2021-08-30 13:03] VITALS: BP 100/60
[2021-08-30] MEDS ORDERED: Warfarin DAILY REMINDER **NOTE FOLLOW UP SCH (17:00)
== END 2021-08-30 14:15 | disposition home or self-care (01) ==
LOC: ED 17:57 → INTOOBSV 23:57 → SUATTDRO 23:57 → EDHOLD 23:57 → MEDTELE 08-30 01:11
PROVIDERS: ADMIT Internal Medicine; ATTEND Hospitalist

== ENCOUNTER 2021-11-16 19:39 | Observation (INO) ==
[2021-11-16 20:20] LABS: Hematocrit 42 % (42-52); Hemoglobin 14.4 g/dL (14.0-18.0); Mean Corpuscular HGB Conc 34 g/dL (31-36); Mean Corpuscular Hemoglobin 31 pg (27-31); Mean Corpuscular Volume 89 fL (80-94); Mean Platelet Volume 10.1 fL (7.4-10.4); Platelet Count 199 10^3/uL (150-450); Red Blood Count 4.74 10^6 /uL (4.18-5.48); Red Cell Distribution Width 16 % (10-15); White Blood Count 7.3 10^3/uL (3.5-10.8)
[2021-11-16 20:26] LABS: ABS Basophils 0.2 10^3/ul (0-0.2); ABS Eosinophils 0.5 10^3/ul (0-0.6); ABS Lymphocytes 2.7 10^3/ul (1.0-4.8); ABS Monocytes 0.6 10^3/ul (0-0.8); ABS Neutrophils 3.3 10^3/ul (1.5-7.7); Eosinophil % 6.2 %; Lymphocyte % 37.2 %; Nucleated Red Blood Cells % 0.1
[2021-11-16 20:26] LABS: INR 2.41 (0.86-1.15)
[2021-11-16] MEDS ORDERED: Furosemide 40 mg/4 ml IV VIAL IV SLOW PU ONE (20:37)
[2021-11-16] MEDS ORDERED: Albuterol/Ipratropium NEB.SOL (2.5/0.5 MG) 3 ML NEB.SOLN INH ONE (20:37)
[2021-11-16 21:15] LABS: Albumin 4.1 g/dL (3.2-5.2); Albumin/Globulin Ratio 1.3 (1-3); C Reactive Protein 1.89 mg/L (<8.01); Calcium 9.7 mg/dL (8.6-10.3); Globulin 3.1 g/dL (2-4); Potassium 4.4 mmol/L (3.5-5.0); Total Bilirubin 0.5 mg/dL (0.2-1.0); Total Protein 7.2 g/dL (6.4-8.9); eGFR CKD-EPI 67.7 (>60)
[2021-11-16 21:23] LABS: PCO2 Arterial 26 mmHg (35-45); PO2 Arterial 121 mmHg (80-100)
[2021-11-16 21:25] LABS: Giant Platelets Present
[2021-11-16 21:48] LABS: High Sensitivity Troponin 1 Hr 25 pg/mL (<20)
[2021-11-17] MEDS ORDERED: Enoxaparin 40 MG/0.4 ML SYR SUBCUT SCH (02:00)
[2021-11-17] MEDS ORDERED: Warfarin per PHARMACY **NOTE FOLLOW UP SCH (03:00)
[2021-11-17 06:48] LABS: ABS Eosinophils 0.4 10^3/ul (0-0.6); ABS Lymphocytes 2.8 10^3/ul (1.0-4.8); ABS Monocytes 0.8 10^3/ul (0-0.8); ABS Neutrophils 3.9 10^3/ul (1.5-7.7); Eosinophil % 5.4 %; Hematocrit 42 % (42-52); Lymphocyte % 34.6 %; Mean Corpuscular HGB Conc 33 g/dL (31-36); Mean Corpuscular Hemoglobin 30 pg (27-31); Mean Corpuscular Volume 90 fL (80-94); Platelet Count 182 10^3/uL (150-450); Red Blood Count 4.68 10^6 /uL (4.18-5.48); Red Cell Distribution Width 16 % (10-15)
[2021-11-17 06:53] LABS: INR 2.54 (0.86-1.15)
[2021-11-17 07:54] LABS: Calcium 9.5 mg/dL (8.6-10.3); Magnesium 1.9 mg/dL (1.9-2.7); Potassium 3.8 mmol/L (3.5-5.0); eGFR CKD-EPI 88.6 (>60)
[2021-11-17] MEDS: Potassium Chlor 20 meq TAB.ER PO SCH (08:29)
[2021-11-17] MEDS: Aspirin EC 81 mg TAB.EC (enteric coated) PO SCH (08:29)
[2021-11-17] MEDS ORDERED: Furosemide 40 mg/4 ml IV VIAL IV SLOW PU SCH (09:00)
[2021-11-17] MEDS ORDERED: Digoxin IV 0.5 MG/2 ML AMP (0.25 MG/ML) IV SLOW PU ONE (15:01)
[2021-11-17 16:18] LABS: Ferritin 298.3 ng/mL (24-336)
[2021-11-18 05:40] LABS: ABS Basophils 0.2 10^3/ul (0-0.2); ABS Eosinophils 0.4 10^3/ul (0-0.6); ABS Lymphocytes 2.8 10^3/ul (1.0-4.8); ABS Neutrophils 3.9 10^3/ul (1.5-7.7); Eosinophil % 4.7 %; Hematocrit 41 % (42-52); Hemoglobin 14.2 g/dL (14.0-18.0); Lymphocyte % 33.7 %; Mean Corpuscular HGB Conc 34 g/dL (31-36); Mean Corpuscular Hemoglobin 31 pg (27-31); Mean Corpuscular Volume 89 fL (80-94); Platelet Count 184 10^3/uL (150-450); Red Blood Count 4.64 10^6 /uL (4.18-5.48); Red Cell Distribution Width 16 % (10-15); White Blood Count 8.3 10^3/uL (3.5-10.8)
[2021-11-18 05:49] LABS: INR 2.78 (0.86-1.15)
[2021-11-18 05:56] LABS: Calcium 9.9 mg/dL (8.6-10.3); Magnesium 1.9 mg/dL (1.9-2.7); eGFR CKD-EPI 85.7 (>60)
[2021-11-18] MEDS: Potassium Chlor 20 meq TAB.ER PO SCH (09:45)
[2021-11-18] MEDS: Aspirin EC 81 mg TAB.EC (enteric coated) PO SCH (09:46)
[2021-11-18] MEDS: EMPAGLIFLOZIN 10 MG PO SCH (09:47)
[2021-11-18] MEDS ORDERED: Perflutren Lipid Microsphere 3 ML VIAL ONE (16:08)
[2021-11-18] MEDS ORDERED: Warfarin DAILY REMINDER **NOTE FOLLOW UP SCH (17:00)
[2021-11-19 06:07] LABS: INR 2.88 (0.86-1.15)
[2021-11-19 06:18] LABS: Calcium 9.9 mg/dL (8.6-10.3); Potassium 4.1 mmol/L (3.5-5.0); eGFR CKD-EPI 81.4 (>60)
[2021-11-19] MEDS: Aspirin EC 81 mg TAB.EC (enteric coated) PO SCH (10:20)
[2021-11-19] MEDS: Potassium Chlor 20 meq TAB.ER PO SCH (10:21)
[2021-11-19] MEDS: EMPAGLIFLOZIN 10 MG PO SCH (11:25)
[2021-11-19 18:27] VITALS: BP 98/60
== END 2021-11-19 16:17 | disposition home or self-care (01) ==
LOC: EDHOLD 19:39 → ED 19:39 → SUATTDRO 11-17 01:49 → EDHOLD 11-17 16:55 → MEDTELE 11-17 17:12
PROVIDERS: ADMIT Internal Medicine; ATTEND Hospitalist

== ENCOUNTER 2023-06-01 22:00 | Observation (INO) ==
[2023-06-01] MEDS ORDERED: Albuterol/Ipratropium NEB.SOL (2.5/0.5 MG) 3 ML NEB.SOLN INH ONE (22:17)
[2023-06-01 22:31] LABS: ABS Basophils 0.1 10^3/uL (0.0-0.1); ABS Eosinophils 0.5 10^3/uL (0.0-0.5); ABS Lymphocytes 2.7 10^3/uL (1.0-4.8); ABS Neutrophils 6.8 10^3/uL (1.5-7.6); ABS Nucleated RBC 0.01 10^3/ul; Eosinophil % 4.7 %; Hematocrit 45.6 % (38-53); Hemoglobin 15.3 g/dL (13.2-16.3); Lymphocyte % 24.8 %; Mean Corpuscular Hgb Conc 33.5 g/dL (31-36); Mean Corpuscular Volume 92.5 fL (80-97); Mean Platelet Volume 10.1 fL (7.5-11.2); Nucleated Red Blood Cells % 0.1 %/100WBC (0.0-0.8); Platelet Count 193 10^3/uL (150-450); Red Blood Count 4.93 10^6/uL (4.06-5.63); Red Cell Distribution Width 15.4 % (12-17); White Blood Count 11.1 10^3/uL (3.6-10.2)
[2023-06-01 22:43] LABS: INR 2.24 (0.83-1.13)
[2023-06-01 22:56] LABS: ALT 39 U/L (7-52); Albumin 4.5 g/dL (3.2-5.2); Albumin/Globulin Ratio 1.5 (1-3); Alkaline Phosphatase 31 U/L (35-149); Anion Gap 11 mmol/L (2-16); Blood Urea Nitrogen 22 mg/dL (6-24); CO2 Carbon Dioxide 21 mmol/L (22-32); Calcium 9.4 mg/dL (8.6-10.3); Chloride 105 mmol/L (101-111); Creatinine, Serum 1.16 mg/dL (0.67-1.17); Globulin 3.1 g/dL (2-4); Glucose 126 mg/dL (70-100); Sodium 137 mmol/L (135-145); Total Bilirubin 0.5 mg/dL (0.2-1.0); Total Protein 7.6 g/dL (6.4-8.9); eGFR CKD-EPI 64.5 (>60)
[2023-06-01 23:02] LABS: High Sens Troponin Baseline 38 pg/mL (<20)
[2023-06-02] LABS: High Sensitivity Troponin 1 Hr 56 pg/mL (<20)
[2023-06-02] MEDS ORDERED: Iodixanol (CONTRAST) 320 MG/ML 100 ML SDV IV ONE (05:30)
[2023-06-02] MEDS ORDERED: Morphine 2 MG/ML SYRINGE IV PRN (06:24)
[2023-06-02] MEDS: Morphine 4 MG/ML VIAL (1 ml) IV PRN ×2 (06:41→13:16)
[2023-06-02 07:05] LABS: Potassium, Whole Blood 4.2 mmol/L (3.4-4.5)
[2023-06-02 08:33] LABS: High Sensitivity Troponin 1 Hr 70 pg/mL (<20)
[2023-06-02] MEDS ORDERED: Furosemide 40 mg/4 ml IV VIAL IV ONE ×2 (09:15)
[2023-06-02] MEDS: Aspirin EC 81 mg TAB.EC (enteric coated) PO SCH (09:52)
[2023-06-02] MEDS: Potassium Chlor 20 meq TAB.ER PO SCH (09:52)
[2023-06-02] MEDS: Docusate LIQ 100 MG/10 ML UDC PO SCH (11:22)
[2023-06-02] MEDS: Senna TAB 8.6 mg TAB PO SCH (11:22)
[2023-06-02] MEDS ORDERED: Warfarin per PHARMACY **NOTE FOLLOW UP SCH ×2 (17:00)
[2023-06-03] MEDS ORDERED: Furosemide 40 mg/4 ml IV VIAL IV ONE (07:56)
[2023-06-03] MEDS ORDERED: guaiFENesin 100 mg/5 ml LIQ unit dose cup PO PRN (07:57)
[2023-06-03 08:00] LABS: Hemoglobin 14.2 g/dL (13.2-16.3); Mean Corpuscular Hemoglobin 31.4 pg (27-33); Mean Corpuscular Hgb Conc 33.9 g/dL (31-36); Mean Corpuscular Volume 92.7 fL (80-97); Mean Platelet Volume 10.1 fL (7.5-11.2); Platelet Count 178 10^3/uL (150-450); Red Blood Count 4.53 10^6/uL (4.06-5.63); Red Cell Distribution Width 15.4 % (12-17); White Blood Count 11.9 10^3/uL (3.6-10.2)
[2023-06-03 08:14] LABS: INR 2.93 (0.83-1.13)
[2023-06-03 08:16] LABS: Calcium 9.5 mg/dL (8.6-10.3); Creatinine, Serum 0.91 mg/dL (0.67-1.17); Phosphorus 2.6 mg/dL (2.5-5.0); Potassium 3.5 mmol/L (3.5-5.0); eGFR CKD-EPI 86.3 (>60)
[2023-06-03] MEDS: Potassium Chlor 20 meq TAB.ER PO SCH (08:21)
[2023-06-03] MEDS: Aspirin EC 81 mg TAB.EC (enteric coated) PO SCH (08:21)
[2023-06-03] MEDS: Docusate LIQ 100 MG/10 ML UDC PO SCH (08:21)
[2023-06-03] MEDS: Senna TAB 8.6 mg TAB PO SCH (08:21)
[2023-06-03 09:59] LABS: ABS Basophils 0.1 10^3/uL (0.0-0.1); ABS Eosinophils 0.2 10^3/uL (0.0-0.5); ABS Lymphocytes 2.1 10^3/uL (1.0-4.8); ABS Monocytes 1.6 10^3/uL (0.0-1.1); ABS Neutrophils 7.9 10^3/uL (1.5-7.6); Lymphocyte % 17.6 %
[2023-06-03 10:26] VITALS: BP 109/66
== END 2023-06-03 14:00 | disposition home or self-care (01) ==
LOC: ED 22:00 → EDHOLD 22:00 → MEDTELE 06-02 02:28 → SUATTDRO 06-02 02:28 → MEDTELE 06-02 06:50
PROVIDERS: ADMIT Internal Medicine; ATTEND Student in an Organized Health Care Education/Training Program

== ENCOUNTER 2023-06-08 10:12 | Inpatient (IN) ==
[2023-06-08] MEDS ORDERED: Albuterol/Ipratropium NEB.SOL (2.5/0.5 MG) 3 ML NEB.SOLN INH ONE (10:38)
[2023-06-08 11:02] LABS: ABS Basophils 0.1 10^3/uL (0.0-0.1); ABS Eosinophils 0.2 10^3/uL (0.0-0.5); ABS Lymphocytes 2.1 10^3/uL (1.0-4.8); ABS Monocytes 1.5 10^3/uL (0.0-1.1); ABS Neutrophils 7.3 10^3/uL (1.5-7.6); ABS Nucleated RBC 0.01 10^3/ul; Eosinophil % 1.8 %; Lymphocyte % 18.4 %; Mean Corpuscular Hemoglobin 31.4 pg (27-33); Mean Corpuscular Hgb Conc 34.9 g/dL (31-36); Mean Corpuscular Volume 90.1 fL (80-97); Nucleated Red Blood Cells % 0.1 %/100WBC (0.0-0.8); Platelet Count 322 10^3/uL (150-450); Red Blood Count 4.44 10^6/uL (4.06-5.63); Red Cell Distribution Width 14.3 % (12-17); White Blood Count 11.2 10^3/uL (3.6-10.2)
[2023-06-08 11:22] LABS: Albumin 3.9 g/dL (3.2-5.2); C Reactive Protein 166.06 mg/L (<8.01); Calcium 8.8 mg/dL (8.6-10.3); Creatinine, Serum 0.88 mg/dL (0.67-1.17); Globulin 3.8 g/dL (2-4); Potassium 4.3 mmol/L (3.5-5.0); Total Bilirubin 0.8 mg/dL (0.2-1.0); Total Protein 7.7 g/dL (6.4-8.9)
[2023-06-08] MEDS ORDERED: Azithromycin 500 mg/250 ml NS 500 MG/250 ML BAG IVPB ONE (11:38)
[2023-06-08] MEDS ORDERED: cefTRIAXone 1 gm/50 mL D5W 1 GM/50 ML BAG IV ONE (11:40)
[2023-06-08 13:03] LABS: High Sensitivity Troponin 1 Hr 41 pg/mL (<20)
[2023-06-08] MEDS ORDERED: Warfarin per PHARMACY **NOTE FOLLOW UP SCH (14:00)
[2023-06-08 14:33] LABS: INR 2.95 (0.83-1.13)
[2023-06-08 16:49] LABS: Calcium 8.8 mg/dL (8.6-10.3); Creatinine, Serum 0.87 mg/dL (0.67-1.17); eGFR CKD-EPI 88.3 (>60)
[2023-06-08] MEDS: Albuterol/Ipratropium NEB.SOL (2.5/0.5 MG) 3 ML NEB.SOLN INH SCH (19:46)
[2023-06-08] MEDS ORDERED: Morphine 2 MG/ML SYRINGE IV ONE (20:06)
[2023-06-08] MEDS ORDERED: DOXYcycline 100 MG in NS 0.9% 250 ml 250 ML IVPB SCH (21:00)
[2023-06-08] MEDS: Lidocaine PATCH 5% PATCH TRANSDERM SCH (21:35)
[2023-06-08] MEDS: DOXYcycline 100 MG in NS 0.9% 250 ml 250 ML IVPB SCH (21:38)
[2023-06-09 06:59] LABS: ABS Basophils 0.1 10^3/uL (0.0-0.1); ABS Eosinophils 0.3 10^3/uL (0.0-0.5); ABS Monocytes 1.3 10^3/uL (0.0-1.1); ABS Neutrophils 6.9 10^3/uL (1.5-7.6); Eosinophil % 2.4 %; Hematocrit 37.3 % (38-53); Hemoglobin 12.8 g/dL (13.2-16.3); Mean Corpuscular Hemoglobin 31.1 pg (27-33); Mean Corpuscular Hgb Conc 34.4 g/dL (31-36); Mean Corpuscular Volume 90.5 fL (80-97); Mean Platelet Volume 8.8 fL (7.5-11.2); Platelet Count 277 10^3/uL (150-450); Red Blood Count 4.13 10^6/uL (4.06-5.63); Red Cell Distribution Width 14.3 % (12-17); White Blood Count 10.6 10^3/uL (3.6-10.2)
[2023-06-09 07:04] LABS: INR 2.75 (0.83-1.13)
[2023-06-09] MEDS: Albuterol/Ipratropium NEB.SOL (2.5/0.5 MG) 3 ML NEB.SOLN INH SCH ×2 (07:11→13:34)
[2023-06-09 07:12] LABS: Calcium 8.3 mg/dL (8.6-10.3); Creatinine, Serum 0.71 mg/dL (0.67-1.17); Potassium 3.6 mmol/L (3.5-5.0); eGFR CKD-EPI 93.9 (>60)
[2023-06-09] MEDS: Lidocaine PATCH 5% PATCH TRANSDERM SCH (08:54)
[2023-06-09] MEDS: Aspirin EC 81 mg TAB.EC (enteric coated) PO SCH (08:56)
[2023-06-09] MEDS: Potassium Chlor 20 meq TAB.ER PO SCH (08:57)
[2023-06-09] MEDS ORDERED: cefTRIAXone 1 gm/50 mL D5W 1 GM/50 ML BAG IV SCH (09:00)
[2023-06-09] MEDS: cefTRIAXone 1 GM Q24H (ADVAN) IVPB SCH (09:00)
[2023-06-09] MEDS: DOXYcycline 100 MG in NS 0.9% 250 ml 250 ML IVPB SCH ×2 (10:45→20:50)
[2023-06-09] MEDS: Warfarin DAILY REMINDER **NOTE FOLLOW UP SCH (17:28)
[2023-06-10 06:26] LABS: INR 2.89 (0.83-1.13)
[2023-06-10 06:51] LABS: ABS Basophils 0.1 10^3/uL (0.0-0.1); ABS Eosinophils 0.4 10^3/uL (0.0-0.5); ABS Lymphocytes 2.1 10^3/uL (1.0-4.8); ABS Monocytes 0.9 10^3/uL (0.0-1.1); ABS Neutrophils 4.4 10^3/uL (1.5-7.6); ABS Nucleated RBC 0.02 10^3/ul; Eosinophil % 4.7 %; Hematocrit 39.1 % (38-53); Mean Corpuscular Hemoglobin 30.6 pg (27-33); Mean Corpuscular Hgb Conc 33.3 g/dL (31-36); Mean Corpuscular Volume 91.8 fL (80-97); Mean Platelet Volume 9.5 fL (7.5-11.2); Nucleated Red Blood Cells % 0.2 %/100WBC (0.0-0.8); Platelet Count 329 10^3/uL (150-450); Red Blood Count 4.25 10^6/uL (4.06-5.63); Red Cell Distribution Width 14.5 % (12-17); White Blood Count 7.9 10^3/uL (3.6-10.2)
[2023-06-10 07:19] LABS: Calcium 9.2 mg/dL (8.6-10.3); Creatinine, Serum 0.78 mg/dL (0.67-1.17); eGFR CKD-EPI 91.3 (>60)
[2023-06-10] MEDS: Lidocaine PATCH 5% PATCH TRANSDERM SCH (08:14)
[2023-06-10] MEDS: Aspirin EC 81 mg TAB.EC (enteric coated) PO SCH (08:15)
[2023-06-10] MEDS: Potassium Chlor 20 meq TAB.ER PO SCH (08:16)
[2023-06-10] MEDS: DOXYcycline 100 MG in NS 0.9% 250 ml 250 ML IVPB SCH ×2 (08:17→21:28)
[2023-06-10] MEDS: cefTRIAXone 1 GM Q24H (ADVAN) IVPB SCH (09:55)
[2023-06-10] MEDS: Warfarin DAILY REMINDER **NOTE FOLLOW UP SCH (17:07)
[2023-06-11 05:51] VITALS: BP 143/76
[2023-06-11 06:10] LABS: ABS Eosinophils 0.5 10^3/uL (0.0-0.5); ABS Lymphocytes 2.3 10^3/uL (1.0-4.8); ABS Monocytes 0.7 10^3/uL (0.0-1.1); ABS Nucleated RBC 0.01 10^3/ul; Eosinophil % 6.4 %; Hematocrit 38.3 % (38-53); Hemoglobin 13.3 g/dL (13.2-16.3); Lymphocyte % 30.8 %; Mean Corpuscular Hemoglobin 31.6 pg (27-33); Mean Corpuscular Hgb Conc 34.8 g/dL (31-36); Mean Corpuscular Volume 90.9 fL (80-97); Mean Platelet Volume 8.2 fL (7.5-11.2); Nucleated Red Blood Cells % 0.1 %/100WBC (0.0-0.8); Platelet Count 351 10^3/uL (150-450); Red Blood Count 4.21 10^6/uL (4.06-5.63); Red Cell Distribution Width 14.5 % (12-17); White Blood Count 7.6 10^3/uL (3.6-10.2)
[2023-06-11 06:21] LABS: INR 3.13 (0.83-1.13)
[2023-06-11 06:28] LABS: Calcium 9.3 mg/dL (8.6-10.3); Creatinine, Serum 0.71 mg/dL (0.67-1.17); Magnesium 1.9 mg/dL (1.9-2.7); Potassium 3.9 mmol/L (3.5-5.0); eGFR CKD-EPI 93.9 (>60)
[2023-06-11] MEDS ORDERED: cefTRIAXone 1 gm/50 mL D5W 1 GM/50 ML BAG IV SCH (09:00)
== END 2023-06-11 09:00 | disposition home or self-care (01) | DRG 193 ==
LOC: ED 10:12 → EDHOLD 12:42 → MED 15:31
PROVIDERS: ADMIT Student in an Organized Health Care Education/Training Program; ATTEND Student in an Organized Health Care Education/Training Program

== ENCOUNTER 2024-07-11 15:54 | Inpatient (IN) ==
[2024-07-11 16:14] LABS: Hematocrit 43.7 % (38-53); Hemoglobin 14.8 g/dL (13.2-16.3); Mean Corpuscular Hemoglobin 30.8 pg (27-33); Mean Corpuscular Hgb Conc 33.9 g/dL (31-36); Mean Corpuscular Volume 90.7 fL (80-97); Mean Platelet Volume 9.6 fL (7.5-11.2); Platelet Count 248 10^3/uL (150-450); Red Blood Count 4.81 10^6/uL (4.06-5.63); Red Cell Distribution Width 15.6 % (12-17); White Blood Count 8.9 10^3/uL (3.6-10.2)
[2024-07-11 16:34] LABS: INR 2.7 (0.85-1.14)
[2024-07-11 16:47] LABS: Albumin 4.3 g/dL (3.5-5.7); Albumin/Globulin Ratio 1.4 (1-3); Calcium 10.2 mg/dL (8.6-10.3); Creatinine, Serum 0.92 mg/dL (0.67-1.17); Potassium 4.2 mmol/L (3.5-5.0); Total Bilirubin 0.4 mg/dL (0.2-1.0); Total Protein 7.3 g/dL (6.4-8.9); eGFR CKD-EPI 84.6 (>60)
[2024-07-11 17:27] LABS: ABS Basophils 0.1 10^3/uL (0.0-0.1); ABS Eosinophils 0.4 10^3/uL (0.0-0.5); ABS Lymphocytes 2.9 10^3/uL (1.0-4.8); ABS Monocytes 0.9 10^3/uL (0.0-1.1); ABS Neutrophils 4.6 10^3/uL (1.5-7.6); ABS Nucleated RBC 0.01 10^3/ul; Eosinophil % 4.1 %; Lymphocyte % 32.7 %; Nucleated Red Blood Cells % 0.1 %/100WBC (0.0-0.8); RBC Morphology Normal (Normal)
[2024-07-11 17:49] LABS: High Sensitivity Troponin 1 Hr 48 pg/mL (<20)
[2024-07-11] MEDS ORDERED: Warfarin per PHARMACY **NOTE FOLLOW UP SCH (19:00)
[2024-07-11 20:15] LABS: HDL Cholesterol 18.5 mg/dL
[2024-07-11 20:30] LABS: TSH Ultra Thyroid Stim Horm 3.29 mcIU/mL (0.34-5.60)
[2024-07-12 06:20] LABS: ABS Basophils 0.2 10^3/uL (0.0-0.1); ABS Eosinophils 0.4 10^3/uL (0.0-0.5); ABS Monocytes 0.9 10^3/uL (0.0-1.1); ABS Neutrophils 3.3 10^3/uL (1.5-7.6); ABS Nucleated RBC 0.02 10^3/ul; Hematocrit 43.3 % (38-53); Hemoglobin 14.7 g/dL (13.2-16.3); Lymphocyte % 38.6 %; Mean Corpuscular Hemoglobin 30.6 pg (27-33); Mean Corpuscular Hgb Conc 33.8 g/dL (31-36); Mean Corpuscular Volume 90.4 fL (80-97); Mean Platelet Volume 10.5 fL (7.5-11.2); Nucleated Red Blood Cells % 0.2 %/100WBC (0.0-0.8); Platelet Count 215 10^3/uL (150-450); Red Blood Count 4.79 10^6/uL (4.06-5.63); Red Cell Distribution Width 15.8 % (12-17); White Blood Count 7.7 10^3/uL (3.6-10.2)
[2024-07-12 06:30] LABS: INR 2.5 (0.85-1.14)
[2024-07-12 06:37] LABS: Albumin/Globulin Ratio 1.2 (1-3); Calcium 9.4 mg/dL (8.6-10.3); Creatinine, Serum 0.85 mg/dL (0.67-1.17); Globulin 3.3 g/dL (2-4); Magnesium 2.2 mg/dL (1.9-2.7); Potassium 3.9 mmol/L (3.5-5.0); Total Bilirubin 0.4 mg/dL (0.2-1.0); Total Protein 7.3 g/dL (6.4-8.9); eGFR CKD-EPI 88.4 (>60)
[2024-07-12] MEDS: Aspirin EC 81 mg TAB.EC (enteric coated) PO SCH (08:10)
[2024-07-12] MEDS: Cholecalciferol (VIT D3) 400 units TAB PO SCH (14:02)
[2024-07-12] MEDS: Warfarin DAILY REMINDER **NOTE FOLLOW UP SCH (17:27)
[2024-07-13 07:01] LABS: INR 2.91 (0.85-1.14)
[2024-07-13 09:01] LABS: Calcium 9.6 mg/dL (8.6-10.3); Creatinine, Serum 0.85 mg/dL (0.67-1.17); Magnesium 2.2 mg/dL (1.9-2.7); Potassium 4.1 mmol/L (3.5-5.0); eGFR CKD-EPI 88.4 (>60)
[2024-07-14 06:46] LABS: Calcium 9.4 mg/dL (8.6-10.3); Creatinine, Serum 0.78 mg/dL (0.67-1.17); Magnesium 2.1 mg/dL (1.9-2.7); eGFR CKD-EPI 90.7 (>60)
[2024-07-14 06:53] LABS: INR 3.04 (0.85-1.14)
[2024-07-15 06:24] LABS: INR 2.85 (0.85-1.14)
[2024-07-15] MEDS: Polyethylene Glycol 3350 17 GM PACKET PO PRN (12:43)
[2024-07-15] MEDS: Senna TAB 8.6 mg TAB PO PRN (12:43)
[2024-07-16 06:07] LABS: INR 2.76 (0.85-1.14)
[2024-07-16 06:47] LABS: Calcium 9.3 mg/dL (8.6-10.3); Creatinine, Serum 0.83 mg/dL (0.67-1.17); Magnesium 2.1 mg/dL (1.9-2.7); Potassium 4.1 mmol/L (3.5-5.0)
[2024-07-16 09:45] VITALS: BP 108/68
== END 2024-07-16 13:15 | disposition home or self-care (01) | DRG 309 ==
LOC: ED 15:54 → EDHOLD 15:54 → SUATTDRO 18:16 → MEDTELE 20:48 → SUATTDRO 07-12 10:58
PROVIDERS: ADMIT Internal Medicine; ATTEND Student in an Organized Health Care Education/Training Program